=== PATIENT | female | born 1955 | race Caucasian/White ===

== ENCOUNTER 2018-06-04 23:10 | Inpatient (IN) | payer MEDICARE, OTHER ==
[~2018-06-04] VITALS: Ht 165.1 cm; Wt 62.1 kg
[2018-06-04 23:56] LABS: CLARITY,URINE SLIGHTLY CLOUDY (Clear); COLOR,URINE YELLOW (Yellow); GLUCOSE, URINE NEGATIVE (Neg); KETONES,URINE NEGATIVE (Neg); LEUKOCYTE ESTERASE ,URINE MODERATE (Neg); NITRITES, URINE NEGATIVE (Neg); OCCULT BLOOD,URINE SMALL (Neg); PROTEIN,URINE 100 mg/dl (Neg); UROBILINOGEN,URINE 0.2 E.U/dL (0.2-1.0)
[2018-06-04 23:58] LABS: UA COLLECTION TYPE CLN CATCH MIDSTREAM
[2018-06-05 00:02] LABS: MUCUS STRANDS FEW /LPF (Neg); SQUAMOUS EPITHELIAL CELL,UR MODERATE /LPF (FEW)
[2018-06-05 00:03] LABS: BACTERIA,URINE FEW /HPF (Neg); WBC,URINE TNTC /HPF (0-4)
[2018-06-05 00:18] LABS: BASOPHILS # (AUTO) 0.1 X10'3 (0-0.2); BASOPHILS % (AUTO) 0.8 % (0-1); EOSINOPHILS # (AUTO) 0.5 X10'3 (0-0.9); EOSINOPHILS % (AUTO) 7.1 % (0-6); LYMPHOCYTES # (AUTO) 1.6 X10'3 (1.1-4.8); LYMPHOCYTES % (AUTO) 22.4 % (21-51); MEAN CORPUSCULAR HEMOGLOBIN 30.7 PG (27.0-31.0); MEAN CORPUSCULAR HGB CONC 33.1 g/dL (33.0-36.5); MEAN CORPUSCULAR VOLUME 92.5 FL (78-98); MEAN PLATELET VOLUME 8.4 FL (7.4-10.4); MONOCYTES # (AUTO) 0.4 X10'3 (0-0.9); MONOCYTES % (AUTO) 5.6 % (2-12); NEUTROPHILS # (AUTO) 4.6 X10'3 (1.8-7.7); NEUTROPHILS % (AUTO) 64.1 % (42-75); PLATELET COUNT 203 X10'3 (140-440); RED BLOOD COUNT 2.37 X10'6 (4.20-5.60); RED CELL DISTRIBUTION WIDTH 14.5 % (11.5-14.5); WHITE BLOOD COUNT 7.2 X10'3 (4.5-11.0)
[2018-06-05 00:20] LABS: HEMATOCRIT 21.9 % (35.0-45.0); HEMOGLOBIN 7.3 g/dl (12.0-16.0)
[2018-06-05 00:31] LABS: ALANINE AMINOTRANSFERASE 16 U/L (12-78); ALBUMIN 3.9 G/DL (3.4-5.0); ALKALINE PHOSPHATASE 57 IU/L (46-116); ANION GAP 18 (8-16); ASPARTATE AMINO TRANSFERASE 7 U/L (10-37); BILIRUBIN,TOTAL 0.3 MG/DL (0.1-1.0); BLOOD UREA NITROGEN 134 MG/DL (7-18); BUN/CREATININE RATIO 12.8 (6.6-38.0); CHLORIDE 105 MMOL/L (99-107); CREATININE 10.49 MG/DL (0.40-0.90); GLUCOSE 111 MG/DL (70-104); POTASSIUM 4.9 MMOL/L (3.5-5.1); SODIUM 140 MMOL/L (135-145); TOTAL CARBON DIOXIDE 16.9 MMOL/L (24-32); TOTAL PROTEIN 7.8 G/DL (6.4-8.2); eGFR 4 ML/MIN
[2018-06-05] MEDS ORDERED: NO HOME MEDS (00:38)
[2018-06-05 00:41] LABS: MAGNESIUM 3.3 MG/DL (1.5-2.4); PHOSPHORUS 6.1 MG/DL (2.3-4.5)
[2018-06-05] MEDS ORDERED: normal saline 1000ML IV soln IVB ONE (00:45)
[2018-06-05] MEDS ORDERED: cloNIDine 0.1 mg tablet PO ONE (01:00)
[2018-06-05] MEDS ORDERED: labetalol 20mg/4ml (5mg/ml) syringe IV PRN (02:20)
[2018-06-05] MEDS ORDERED: hydrALAZINE 20mg/ml inj. IV PRN (02:20)
[2018-06-05] MEDS: sodium bicarbonate (8.4%) inj. 150 MEQ in dextrose 5%-water 1,000 ML IV SCH ×2 (02:45→14:38)
[2018-06-05] MEDS: CefTRIAXone/D5W-Rocephin 1gm 50 ML IV SCH (03:38)
[2018-06-05] MEDS: ondansetron/PF 4mg/2ml inj IV PRN ×3 (03:38→19:14)
[2018-06-05] MEDS: acetaminophen 325mg tablet PO PRN (05:24)
[2018-06-05] MEDS ORDERED: HYDROcodone/acetaminophen 5mg/325mg tablet PO PRN (05:30)
[2018-06-05] MEDS: HYDROcodone/acetaminophen 5mg/325mg tablet PO PRN ×2 (06:29→19:16)
[2018-06-05 07:26] LABS: MEAN CORPUSCULAR HEMOGLOBIN 30.8 PG (27.0-31.0); MEAN CORPUSCULAR HGB CONC 33.7 g/dL (33.0-36.5); MEAN CORPUSCULAR VOLUME 91.4 FL (78-98); MEAN PLATELET VOLUME 8.3 FL (7.4-10.4); PLATELET COUNT 170 X10'3 (140-440); RED BLOOD COUNT 2.04 X10'6 (4.20-5.60); RED CELL DISTRIBUTION WIDTH 14.3 % (11.5-14.5); WHITE BLOOD COUNT 5.9 X10'3 (4.5-11.0)
[2018-06-05 07:28] LABS: HEMATOCRIT 18.7 % (35.0-45.0); HEMOGLOBIN 6.3 g/dl (12.0-16.0)
--- NOTE | 2018-06-05 07:34 | NUR ---
PAGED DR. RAZO
[2018-06-05 07:38] LABS: ALBUMIN 3.4 G/DL (3.4-5.0); ANION GAP 18 (8-16); BLOOD UREA NITROGEN 126 MG/DL (7-18); BUN/CREATININE RATIO 12.7 (6.6-38.0); CALCIUM 8.4 MG/DL (8.5-10.1); CHLORIDE 106 MMOL/L (99-107); CREATININE 9.94 MG/DL (0.40-0.90); GLUCOSE 154 MG/DL (70-104); PHOSPHORUS 5.7 MG/DL (2.3-4.5); SODIUM 142 MMOL/L (135-145); TOTAL CARBON DIOXIDE 18.4 MMOL/L (24-32); eGFR 4 ML/MIN
--- NOTE | 2018-06-05 08:02 | NUR ---
Second page to Dr. Maher regarding critical H&H
--- NOTE | 2018-06-05 08:31 | NUR ---
Additional page to Dr. Maher
--- NOTE | 2018-06-05 08:35 | NUR ---
Dr. Maher returned call; hung up after a short time while on hold. carton repairer notified, and additional page made to him.
--- NOTE | 2018-06-05 09:27 | NUR ---
Spoke with Dr. Maher regarding patients decreased H&H upon AM draw. Dr. Maher stated to place telephone order for 2 Units PRBCs STAT IV now, orders will be placed per Dr. Maher's request. He would contact senior quality analyst regarding patients need for dialysis and blood transfusion.
--- NOTE | 2018-06-05 10:20 | NUR ---
Spoke to Dr. Maher regarding transfusion. He requests witholding transfusion until he has consulted Nephrology regarding possible dialysis. Will await verbal confirmation for transfusion initiation.
--- NOTE | 2018-06-05 10:20 | NUR ---
Note [email or web address] in EDM - 06/05/18 at 1027 by [email or web address] Spoke to Dr. Maher regarding transfusion. He requests witholding transfusion until he has consulted Nephrology regarding possible dialysis. Will await verbal confirmation of transfuio
--- NOTE | 2018-06-05 10:24 | NUR ---
Pt requestying assistance using the restroom. Pt states that she is too dizzy to use the restroom and is requesting assistance to use a bedpan at this time.
[2018-06-05] MEDS ORDERED: LIDOcaine 1%/PF 5ML 10 MG/ML VIAL ONE (11:17)
[2018-06-05] MEDS ORDERED: heparin 1,000unit/ml 10ml vial 10 ML ONE (11:17)
[2018-06-05] MEDS ORDERED: midazolam 2 mg/2 ml injection ONE (11:17)
[2018-06-05] MEDS ORDERED: fentaNYL/PF 50MCG/1 ML 2ML syringe ONE (11:18)
--- NOTE | 2018-06-05 11:25 | NUR ---
Patient to IR for tunnelled dialysis catheter placement
--- NOTE | 2018-06-05 12:35 | NUR ---
Spoke with Corie at [phone] regarding need for dialysis of patient, Corie stated that she is currently unaware of the patient. I will speak to Dr. Maher and get back to Corie regarding orders.
--- NOTE | 2018-06-05 12:37 | NUR ---
Spoke with Dr. Maher regarding patient having returned to ED after tunneled dialysis catheter placement from angio and no further order for treatment. Dr. Maher stated that he spoke with Dr. Palmer regarding dialysis and that he would place orders. Will contact Dr. Palmer regarding blood transfusion and if MD still wants to wait for dialysis to administer or administer prior to dialysis.
--- NOTE | 2018-06-05 12:48 | NUR ---
Spoke with Dr. Palmer regarding patients need for dialysis and no orders have been currently placed for patient to be dialyzed. Dr. Palmer stated that he would inform the regional guide, Corie, regarding order and need. Also discussed with Dr. Palmer regarding verbal order from Dr. Maher to hold blood products until dialysis who agreed with order. Will place nursing order to hold blood products until performing dialysis.
--- NOTE | 2018-06-05 12:50 | NUR ---
Spoke with Corie, deputy register of deeds, who stated that Dr. Palmer had just called and informed her regarding patients need for dialysis. Corie stated that she would place patient on her schedule.
--- NOTE | 2018-06-05 12:58 | NUR ---
Notified blood bank regarding need to hold off on blood transfusion until start of dialysis.
--- NOTE | 2018-06-05 13:12 | NUR ---
received report from Jessica in the ER. WANT TO HOLD BLOOD UNTIL DIALYSIS NURSE CAN DIALYZE PT. WILL GIVE BLOOD DURING DIALYSIS
[2018-06-05] MEDS ORDERED: normal saline 1000ml 250 ML IV PRN (14:46)
[2018-06-05] MEDS ORDERED: epoetin 20,000 units/ml inj IV ONE (14:50)
[2018-06-05] MEDS ORDERED: heparin 1,000 units/ml 10ml inj HE ONE ×2 (14:50)
--- NOTE | 2018-06-05 16:25 | NUR ---
pre weighed pt for dialsysis.
--- NOTE | 2018-06-05 18:30 | NUR ---
Patient in room PA 345. I have received report from Charu OSBORN and had the opportunity to ask questions and assume patient care. Patient receiving dialysis, provided blood to office technology professor. Will continue to monitor.
[2018-06-05 18:45] VITALS: BP 183/87
[2018-06-05 19:00] VITALS: BP 185/83
[2018-06-05] MEDS ORDERED: HYDROmorphone 2mg/ml vial IV PRN ×2 (19:35)
[2018-06-05] MEDS ORDERED: proCHLORperazine 10 MG/2 ml inj IV ONE (19:45)
--- NOTE | 2018-06-05 19:45 | NUR ---
Patient is having pain and nausea, discussed with Lesley Santiago PHP MYSQL WEB DEVELOPER. Patient is receiving dialysis and blood. Blood pressure elevated. Zofran provided with minimal relief. Patient requested pain medication over nausea medication at this time due to sedation. Received ordered for compazine, dilaudid, and to return call if BP continues to be elevated after dialysis has completed. Will continue to monitor.
[2018-06-05] MEDS: HYDROmorphone 1 mg/ml syringe IV PRN (19:52)
[2018-06-05 20:00] VITALS: BP_SYST 179; BP_SYST 188; BP_DIAS 85; BP_DIAS 96
[2018-06-05 20:30] VITALS: BP 157/79
--- NOTE | 2018-06-05 22:00 | NUR ---
Entered patient's room to provide Vasotec due to BP being 191/90. Blood pressure now 160/80, patient resting comfortably. Will continue to monitor,.
[2018-06-05 22:15] VITALS: BP 138/60
--- NOTE | 2018-06-05 22:30 | NUR ---
Patient woke up due to blood draw needed. Blood pressure elevated to 207/99. Patient states stressor of having blood drawn and not being able to urinate. Educated patient on commonality of decreased urine output post dialysis. Also discussed with patient guided imagery and intentional breathing. Will continue to monitor patient's blood pressure to ensure it returns to normal.
--- NOTE | 2018-06-05 23:12 | NUR ---
Patient resting blood pressure is 147/79. resting eyes closed respirations even. Will continue to monitor.
[2018-06-05 23:13] LABS: HEMATOCRIT 23.7 % (35.0-45.0); MEAN CORPUSCULAR HEMOGLOBIN 29.1 PG (27.0-31.0); MEAN CORPUSCULAR HGB CONC 33.7 g/dL (33.0-36.5); MEAN CORPUSCULAR VOLUME 86.4 FL (78-98); PLATELET COUNT 174 X10'3 (140-440); RED BLOOD COUNT 2.74 X10'6 (4.20-5.60); RED CELL DISTRIBUTION WIDTH 17.6 % (11.5-14.5); WHITE BLOOD COUNT 6.6 X10'3 (4.5-11.0)
[2018-06-06] VITALS: BP_SYST 149; BP_SYST 179; BP_DIAS 77; BP_DIAS 85
[2018-06-06] MEDS: HYDROmorphone 1 mg/ml syringe IV PRN (04:08)
[2018-06-06] MEDS: ondansetron/PF 4mg/2ml inj IV PRN (04:17)
[2018-06-06] MEDS: sodium bicarbonate (8.4%) inj. 150 MEQ in dextrose 5%-water 1,000 ML IV SCH ×2 (04:40→17:14)
[2018-06-06 04:44] LABS: BASOPHILS % (AUTO) 0.1 % (0-1); EOSINOPHILS % (AUTO) 0.8 % (0-6); HEMATOCRIT 22.8 % (35.0-45.0); LYMPHOCYTES # (AUTO) 0.8 X10'3 (1.1-4.8); LYMPHOCYTES % (AUTO) 13.6 % (21-51); MEAN CORPUSCULAR HEMOGLOBIN 30.1 PG (27.0-31.0); MONOCYTES # (AUTO) 0.3 X10'3 (0-0.9); MONOCYTES % (AUTO) 5.8 % (2-12); NEUTROPHILS # (AUTO) 4.7 X10'3 (1.8-7.7); NEUTROPHILS % (AUTO) 79.7 % (42-75); PLATELET COUNT 161 X10'3 (140-440); RED BLOOD COUNT 2.65 X10'6 (4.20-5.60); RED CELL DISTRIBUTION WIDTH 17.9 % (11.5-14.5); WHITE BLOOD COUNT 5.8 X10'3 (4.5-11.0)
[2018-06-06 04:50] LABS: ALBUMIN 3.3 G/DL (3.4-5.0); ANION GAP 10 (8-16); BLOOD UREA NITROGEN 52 MG/DL (7-18); BUN/CREATININE RATIO 9.6 (6.6-38.0); CALCIUM 8.4 MG/DL (8.5-10.1); CHLORIDE 101 MMOL/L (99-107); CREATININE 5.43 MG/DL (0.40-0.90); GLUCOSE 119 MG/DL (70-104); MAGNESIUM 2.2 MG/DL (1.5-2.4); PHOSPHORUS 6.4 MG/DL (2.3-4.5); POTASSIUM 4.1 MMOL/L (3.5-5.1); SODIUM 138 MMOL/L (135-145); TOTAL CARBON DIOXIDE 26.6 MMOL/L (24-32); eGFR 8 ML/MIN
--- NOTE | 2018-06-06 06:39 | NUR ---
Problems reprioritized. Patient report given, questions answered & plan of care reviewed with Lea RN. Patient resting eyes closed respirations even.
[2018-06-06 07:00] VITALS: BP 205/94
--- NOTE | 2018-06-06 07:00 | NUR ---
Patient in room PA 345. I have received report from Aditi and had the opportunity to ask questions and assume patient care. Addendum: 06/06/18 at 1127 by Lea Beal RN Amended: Links added.
[2018-06-06] MEDS: CefTRIAXone/D5W-Rocephin 1gm 50 ML IV SCH (07:36)
[2018-06-06] MEDS: enalaprilat dihydrate 2.5mg/2ml vial IV PRN (07:36)
[2018-06-06 08:00] VITALS: BP 190/84
[2018-06-06 12:00] VITALS: BP 174/79
[2018-06-06 12:32] VITALS: BP 162/94
--- NOTE | 2018-06-06 14:52 | NUR ---
Malnutrition consult: Pt admit w/ hx renal failure but not requiring HD and not feeling well for past 1.5 years per EMR. Pt seen by RD and reports 20# wt loss past 1.5 years w/ 5# of that being past month r/t low appetite, feeling full quickly, and altered taste. 15% UBW loss past 18 months and 4% UBW loss past month moderate wt loss. Pt has no visible muscle/fat wasting, no edema, no significant weakness, and PO 0-25% mainly liquids since not feeling well per pt. Phos binder to be held since new HD pt and making urine per MD; Ok to have some liberalization of renal diet. Pt preferences taken by RD and d/w dietary: Dislikes eggs, lactose-intolerant to receive almond milk and cereal at breakfasts, and wants herbal tea instead of coffee since dislikes. Pt agrees to [facility] for additional protein/kcal needs w/ low PO; RD provided verbal high protein ed to pt given new HD and low PO. At this time pt does not qualify for malnutrition; will monitor for PO hx this admit for additional criteria. Addendum: 06/06/18 at [address] Amended: Links added. Addendum: 06/06/18 at [address] Malnutrition consult: Pt admit w/ hx renal failure but not requiring HD and not feeling well for past 1.5 years per EMR. Pt seen by ROSINA and reports 20# wt loss past 1.5 years w/ 5# of that being past month r/t low appetite, feeling full quickly, and altered taste. 15% UBW loss past 18 months and 4% UBW loss past month moderate wt loss. Pt has no visible muscle/fat wasting, no edema, no significant weakness, and PO 0-25% mainly liquids since not feeling well per pt. Phos binder to be held since new HD pt and making urine per MD; Ok to have some liberalization of renal diet. Pt preferences taken by ROSINA and d/w dietary: Dislikes eggs, lactose-intolerant to receive almond milk and cereal at breakfasts, and wants herbal tea instead of coffee since dislikes. Pt agrees to [facility] for additional protein/kcal needs w/ low PO; MD notified. ROSINA provided verbal high protein ed to pt given new HD and low PO. At this time pt does not qualify for malnutrition; will monitor for PO hx this admit for additional criteria.
[2018-06-06] MEDS: NUT.TX.IMP.RENAL FXN,LAC-REDUC (Nepro) 237 ML VANILLA PO SCH (18:15)
--- NOTE | 2018-06-06 18:26 | NUR ---
Problems reprioritized. Patient report given, questions answered & plan of care reviewed with Addendum: 06/06/18 at 1826 by Lea Beal RN Amended: Links added.
--- NOTE | 2018-06-06 18:30 | NUR ---
Patient in room PA 345. I have received report from Lea OSBORN and had the opportunity to ask questions and assume patient care. Patient in great spirits and states she is feeling much better. Will continue to monitor.
[2018-06-06 19:00] VITALS: BP 137/65
[2018-06-06] MEDS: lactobacillus rhamnosus 10,000 MMU CELLS/CAPSULE PO SCH (19:23)
[2018-06-06] MEDS ORDERED: Melatonin 3mg tablet PO PRN (23:25)
[2018-06-07] VITALS: BP 152/71
[2018-06-07 05:53] LABS: BASOPHILS % (AUTO) 0.2 % (0-1); EOSINOPHILS # (AUTO) 0.2 X10'3 (0-0.9); EOSINOPHILS % (AUTO) 2.5 % (0-6); HEMATOCRIT 22.8 % (35.0-45.0); HEMOGLOBIN 7.5 g/dl (12.0-16.0); LYMPHOCYTES # (AUTO) 1.3 X10'3 (1.1-4.8); LYMPHOCYTES % (AUTO) 18.6 % (21-51); MEAN CORPUSCULAR HEMOGLOBIN 29.1 PG (27.0-31.0); MEAN CORPUSCULAR HGB CONC 33.1 g/dL (33.0-36.5); MEAN CORPUSCULAR VOLUME 87.7 FL (78-98); MEAN PLATELET VOLUME 8.5 FL (7.4-10.4); MONOCYTES # (AUTO) 0.5 X10'3 (0-0.9); NEUTROPHILS # (AUTO) 4.8 X10'3 (1.8-7.7); NEUTROPHILS % (AUTO) 70.7 % (42-75); PLATELET COUNT 150 X10'3 (140-440); RED CELL DISTRIBUTION WIDTH 17.8 % (11.5-14.5); WHITE BLOOD COUNT 6.8 X10'3 (4.5-11.0)
[2018-06-07 05:56] LABS: ALBUMIN 2.9 G/DL (3.4-5.0); ANION GAP 8 (8-16); BLOOD UREA NITROGEN 66 MG/DL (7-18); BUN/CREATININE RATIO 9.7 (6.6-38.0); CALCIUM 8.1 MG/DL (8.5-10.1); CHLORIDE 99 MMOL/L (99-107); CREATININE 6.79 MG/DL (0.40-0.90); GLUCOSE 102 MG/DL (70-104); MAGNESIUM 2.3 MG/DL (1.5-2.4); PHOSPHORUS 6.5 MG/DL (2.3-4.5); POTASSIUM 4.1 MMOL/L (3.5-5.1); SODIUM 141 MMOL/L (135-145); TOTAL CARBON DIOXIDE 34.5 MMOL/L (24-32); eGFR 6 ML/MIN
--- NOTE | 2018-06-07 06:44 | NUR ---
Problems reprioritized. Patient report given, questions answered & plan of care reviewed with Ena OSBORN. Patient resting eyes closed respirations even.
[2018-06-07 07:00] VITALS: BP 142/63
[2018-06-07] MEDS ORDERED: heparin 1,000 units/ml 10ml inj HE ONE ×2 (08:00)
[2018-06-07] MEDS ORDERED: epoetin 20,000 units/ml inj IV ONE (08:00)
[2018-06-07] MEDS ORDERED: normal saline 1000ml 250 ML IV PRN (08:00)
[2018-06-07] MEDS ORDERED: normal saline 1000ml 100 ML IV PRN (08:00)
[2018-06-07] MEDS: CefTRIAXone/D5W-Rocephin 1gm 50 ML IV SCH (08:48)
[2018-06-07] MEDS: lactobacillus rhamnosus 10,000 MMU CELLS/CAPSULE PO SCH ×2 (08:49→21:03)
[2018-06-07] MEDS: LORazepam 0.5 MG tablet PO PRN (11:13)
[2018-06-07 12:00] VITALS: BP 158/67
[2018-06-07] MEDS: sodium bicarbonate (8.4%) inj. 150 MEQ in dextrose 5%-water 1,000 ML IV SCH (12:44)
[2018-06-07] MEDS: NUT.TX.IMP.RENAL FXN,LAC-REDUC (Nepro) 237 ML VANILLA PO SCH (17:00)
--- NOTE | 2018-06-07 18:20 | NUR ---
Patient in room PA 345. I have received report from Ena OSBORN and mae student Lopez and had the opportunity to ask questions and assume patient care.
--- NOTE | 2018-06-07 19:12 | NUR ---
WHEY DEPARTMENT OPERATOR reported 3 x loose stools back to back and patient very uncomfortable from excoriation. Order obtained for rectal tube to be placed. Addendum: 06/07/18 at 1915 by Pilar Murrell RN Incorrect- wrong patient.
[2018-06-07 20:00] VITALS: BP 144/84
[2018-06-07] MEDS: HYDROcodone/acetaminophen 5mg/325mg tablet PO PRN (21:04)
[2018-06-08] VITALS: BP 153/63
[2018-06-08] MEDS: HYDROcodone/acetaminophen 5mg/325mg tablet PO PRN (04:32)
[2018-06-08 05:38] LABS: ANION GAP 6 (8-16); BLOOD UREA NITROGEN 29 MG/DL (7-18); BUN/CREATININE RATIO 7.3 (6.6-38.0); CALCIUM 8.2 MG/DL (8.5-10.1); CHLORIDE 99 MMOL/L (99-107); CREATININE 3.95 MG/DL (0.40-0.90); GLUCOSE 94 MG/DL (70-104); MAGNESIUM 2.2 MG/DL (1.5-2.4); PHOSPHORUS 4.3 MG/DL (2.3-4.5); POTASSIUM 4.2 MMOL/L (3.5-5.1); SODIUM 137 MMOL/L (135-145); eGFR 11 ML/MIN
[2018-06-08 05:40] LABS: BASOPHILS % (AUTO) 0.5 % (0-1); EOSINOPHILS # (AUTO) 0.3 X10'3 (0-0.9); EOSINOPHILS % (AUTO) 4.8 % (0-6); HEMATOCRIT 23.3 % (35.0-45.0); HEMOGLOBIN 7.8 g/dl (12.0-16.0); LYMPHOCYTES # (AUTO) 1.5 X10'3 (1.1-4.8); LYMPHOCYTES % (AUTO) 25.4 % (21-51); MEAN CORPUSCULAR HEMOGLOBIN 29.7 PG (27.0-31.0); MEAN CORPUSCULAR HGB CONC 33.7 g/dL (33.0-36.5); MEAN CORPUSCULAR VOLUME 87.9 FL (78-98); MEAN PLATELET VOLUME 8.8 FL (7.4-10.4); MONOCYTES # (AUTO) 0.6 X10'3 (0-0.9); MONOCYTES % (AUTO) 9.9 % (2-12); NEUTROPHILS # (AUTO) 3.5 X10'3 (1.8-7.7); NEUTROPHILS % (AUTO) 59.4 % (42-75); PLATELET COUNT 156 X10'3 (140-440); RED BLOOD COUNT 2.65 X10'6 (4.20-5.60); RED CELL DISTRIBUTION WIDTH 17.6 % (11.5-14.5)
--- NOTE | 2018-06-08 06:12 | NUR ---
Problems reprioritized. Patient report given, questions answered & plan of care reviewed with Latonya RN.
[2018-06-08 06:30] VITALS: BP 129/67
--- NOTE | 2018-06-08 06:30 | NUR ---
Patient in room PA 345. I have received report from IRENA Quezada and had the opportunity to ask questions and assume patient care.
[2018-06-08] MEDS: CefTRIAXone/D5W-Rocephin 1gm 50 ML IV SCH (09:33)
[2018-06-08] MEDS: lactobacillus rhamnosus 10,000 MMU CELLS/CAPSULE PO SCH ×2 (09:33→21:14)
[2018-06-08 12:00] VITALS: BP 130/63
[2018-06-08] MEDS: NUT.TX.IMP.RENAL FXN,LAC-REDUC (Nepro) 237 ML VANILLA PO SCH (18:00)
--- NOTE | 2018-06-08 18:10 | NUR ---
Problems reprioritized. Patient report given, questions answered & plan of care reviewed with IRENA Quezada.
--- NOTE | 2018-06-08 18:18 | NUR ---
Patient in room PA 345. I have received report from Latonya OSBORN and had the opportunity to ask questions and assume patient care.
[2018-06-08 19:10] LABS: HBSAG SCREEN Negative (Negative); HEP A AB, IGM Negative (Negative); HEP B CORE AB, IGM Negative (Negative); HEP B CORE AB, TOT Negative (Negative); HEPATITIS C ANTIBODY <0.1 s/co ratio (0.0-0.9)
[2018-06-08] MEDS: magnesium hydroxide 30ml (MOM) UD suspension PO PRN (21:14)
[2018-06-09] VITALS: BP 127/77
[2018-06-09 05:48] LABS: ALBUMIN 2.8 G/DL (3.4-5.0); ANION GAP 10 (8-16); BASOPHILS % (AUTO) 0.6 % (0-1); BLOOD UREA NITROGEN 48 MG/DL (7-18); BUN/CREATININE RATIO 8.5 (6.6-38.0); CALCIUM 8.2 MG/DL (8.5-10.1); CHLORIDE 96 MMOL/L (99-107); CREATININE 5.65 MG/DL (0.40-0.90); EOSINOPHILS # (AUTO) 0.4 X10'3 (0-0.9); EOSINOPHILS % (AUTO) 6.9 % (0-6); GLUCOSE 105 MG/DL (70-104); HEMATOCRIT 22.3 % (35.0-45.0); HEMOGLOBIN 7.6 g/dl (12.0-16.0); LYMPHOCYTES # (AUTO) 1.4 X10'3 (1.1-4.8); LYMPHOCYTES % (AUTO) 22.1 % (21-51); MAGNESIUM 2.5 MG/DL (1.5-2.4); MEAN CORPUSCULAR HGB CONC 33.9 g/dL (33.0-36.5); MEAN CORPUSCULAR VOLUME 88.5 FL (78-98); MEAN PLATELET VOLUME 9.1 FL (7.4-10.4); MONOCYTES # (AUTO) 0.6 X10'3 (0-0.9); MONOCYTES % (AUTO) 10.1 % (2-12); NEUTROPHILS # (AUTO) 3.8 X10'3 (1.8-7.7); NEUTROPHILS % (AUTO) 60.3 % (42-75); PLATELET COUNT 145 X10'3 (140-440); POTASSIUM 4.3 MMOL/L (3.5-5.1); RED BLOOD COUNT 2.52 X10'6 (4.20-5.60); RED CELL DISTRIBUTION WIDTH 16.5 % (11.5-14.5); SODIUM 134 MMOL/L (135-145); TOTAL CARBON DIOXIDE 27.7 MMOL/L (24-32); WHITE BLOOD COUNT 6.3 X10'3 (4.5-11.0); eGFR 8 ML/MIN
--- NOTE | 2018-06-09 06:10 | NUR ---
Patient in room PA 345. I have received report from IRENA Quezada and had the opportunity to ask questions and assume patient care.
[2018-06-09 06:30] VITALS: BP 136/66
--- NOTE | 2018-06-09 06:41 | NUR ---
Problems reprioritized. Patient report given, questions answered & plan of care reviewed with Latonya RN.
[2018-06-09] MEDS: lactobacillus rhamnosus 10,000 MMU CELLS/CAPSULE PO SCH ×2 (08:26→20:09)
[2018-06-09] MEDS: CefTRIAXone/D5W-Rocephin 1gm 50 ML IV SCH (08:26)
[2018-06-09 11:30] VITALS: BP 136/71
[2018-06-09] MEDS: LORazepam 0.5 MG tablet PO PRN (13:10)
[2018-06-09] MEDS: HYDROcodone/acetaminophen 5mg/325mg tablet PO PRN ×2 (13:21→21:02)
[2018-06-09] MEDS: ondansetron/PF 4mg/2ml inj IV PRN ×2 (13:21→21:02)
[2018-06-09 13:45] VITALS: BP_SYST 167; BP_SYST 168; BP_SYST 177; BP_DIAS 72; BP_DIAS 75; BP_DIAS 78
--- NOTE | 2018-06-09 13:54 | NUR ---
MDs aware of pt c/o abdominal pain, mild dizziness w/standing or standing for a minute or 2 & nausea. UA w/C&S ordered by Dr Maher & orthostatic VS check x1 ordered by Dr Hargrove.
[2018-06-09 14:24] LABS: TOTAL PROTEIN,URINE RANDOM 123.9 MG/DL
[2018-06-09 18:00] VITALS: BP 176/68
[2018-06-09 18:18] LABS: CLARITY,URINE CLEAR (Clear); COLOR,URINE STRAW (Yellow); GLUCOSE, URINE NEGATIVE (Neg); KETONES,URINE NEGATIVE (Neg); LEUKOCYTE ESTERASE ,URINE SMALL (Neg); NITRITES, URINE NEGATIVE (Neg); OCCULT BLOOD,URINE TRACE-INTACT (Neg); PROTEIN,URINE 100 mg/dl (Neg); UA COLLECTION TYPE NON-SPECIFIED; UROBILINOGEN,URINE 0.2 E.U/dL (0.2-1.0)
[2018-06-09] MEDS: NUT.TX.IMP.RENAL FXN,LAC-REDUC (Nepro) 237 ML VANILLA PO SCH (18:21)
--- NOTE | 2018-06-09 18:21 | NUR ---
Received report from IRENA Hanks. Patient is awake and alert on room air, in no apparent distress. Call light and items of frequent use within reach. Visitor at bedside. Will continue to monitor.
[2018-06-09 18:24] LABS: BACTERIA,URINE FEW /HPF (Neg); MUCUS STRANDS NONE SEEN /LPF (Neg); RBC,URINE 0-2 /HPF (0-2); SQUAMOUS EPITHELIAL CELL,UR MODERATE /LPF (FEW)
--- NOTE | 2018-06-09 18:55 | NUR ---
Patient has temperature of 103.1. Paged MD Nika. Awaiting call back.
[2018-06-09] MEDS ORDERED: CefTRIAXone/D5W-Rocephin 1gm 50 ML IV ONE (20:00)
[2018-06-09] MEDS: acetaminophen 325mg tablet PO PRN (21:02)
[2018-06-10] VITALS: BP 124/52
[2018-06-10] MEDS: LORazepam 0.5 MG tablet PO PRN (00:29)
[2018-06-10] MEDS: proCHLORperazine 10 MG/2 ml inj IV PRN (00:31)
[2018-06-10 05:31] LABS: BASOPHILS % (AUTO) 0 % (0-1); EOSINOPHILS # (AUTO) 0.1 X10'3 (0-0.9); HEMATOCRIT 25.6 % (35.0-45.0); HEMOGLOBIN 8.3 g/dl (12.0-16.0); LYMPHOCYTES # (AUTO) 0.3 X10'3 (1.1-4.8); LYMPHOCYTES % (AUTO) 2.6 % (21-51); MEAN CORPUSCULAR HGB CONC 32.3 g/dL (33.0-36.5); MEAN CORPUSCULAR VOLUME 89.8 FL (78-98); MEAN PLATELET VOLUME 9.3 FL (7.4-10.4); MONOCYTES # (AUTO) 0.1 X10'3 (0-0.9); MONOCYTES % (AUTO) 1.1 % (2-12); NEUTROPHILS # (AUTO) 10.7 X10'3 (1.8-7.7); NEUTROPHILS % (AUTO) 95.3 % (42-75); PLATELET COUNT 153 X10'3 (140-440); RED BLOOD COUNT 2.85 X10'6 (4.20-5.60); RED CELL DISTRIBUTION WIDTH 16.2 % (11.5-14.5); WHITE BLOOD COUNT 11.3 X10'3 (4.5-11.0)
[2018-06-10 05:48] LABS: ALBUMIN 2.9 G/DL (3.4-5.0); ANION GAP 11 (8-16); BLOOD UREA NITROGEN 63 MG/DL (7-18); BUN/CREATININE RATIO 8.9 (6.6-38.0); CALCIUM 8.6 MG/DL (8.5-10.1); CHLORIDE 94 MMOL/L (99-107); CREATININE 7.07 MG/DL (0.40-0.90); GLUCOSE 112 MG/DL (70-104); MAGNESIUM 2.4 MG/DL (1.5-2.4); PHOSPHORUS 4.3 MG/DL (2.3-4.5); POTASSIUM 5.4 MMOL/L (3.5-5.1); SODIUM 131 MMOL/L (135-145); TOTAL CARBON DIOXIDE 26.3 MMOL/L (24-32); eGFR 6 ML/MIN
[2018-06-10 06:00] VITALS: BP 152/68
--- NOTE | 2018-06-10 06:00 | NUR ---
Patient in room PA 345. I have received report from IRENA Saab and had the opportunity to ask questions and assume patient care.
--- NOTE | 2018-06-10 06:06 | NUR ---
Problems reprioritized. Patient report given, questions answered & plan of care reviewed with IRENA Hanks.
--- NOTE | 2018-06-10 06:34 | NUR ---
Patient in room PA 345. I have received report from Katiana OSBORN and had the opportunity to ask questions and assume patient care.
[2018-06-10] MEDS: lactobacillus rhamnosus 10,000 MMU CELLS/CAPSULE PO SCH ×2 (07:10→19:10)
[2018-06-10] MEDS: acetaminophen 325mg tablet PO PRN ×3 (07:10→20:29)
[2018-06-10] MEDS: CefTRIAXone 2gm/D5W 50ml 50 ML IV SCH (07:11)
[2018-06-10] MEDS: HYDROcodone/acetaminophen 5mg/325mg tablet PO PRN ×2 (07:20→15:46)
[2018-06-10] MEDS: NUT.TX.IMP.RENAL FXN,LAC-REDUC (Nepro) 237 ML VANILLA PO SCH (08:46)
[2018-06-10] MEDS ORDERED: heparin 1,000unit/ml 10ml vial 10 ML IV ONE (08:49)
[2018-06-10] MEDS ORDERED: normal saline 1000ml 250 ML IV PRN (08:49)
[2018-06-10] MEDS ORDERED: epoetin 20,000 units/ml inj IV ONE (08:50)
[2018-06-10] MEDS ORDERED: heparin 1,000 units/ml 10ml inj HE ONE ×2 (08:55)
--- NOTE | 2018-06-10 10:27 | NUR ---
Student documentation: I have reviewed and agree with all interventions, assessments performed and documented by Feli, nursing executive.
--- NOTE | 2018-06-10 10:27 | NUR ---
Student Medication Administration: For this medication-pass time frame, all medication were reviewed, dispensed, administered and documented per hospital policy by Feli nursing admin.
[2018-06-10 10:52] VITALS: BP 110/57
--- NOTE | 2018-06-10 12:09 | NUR ---
Problems reprioritized. Patient report given, questions answered & plan of care reviewed with Latonya RN.
[2018-06-10] MEDS: HYDROmorphone 1 mg/ml syringe IV PRN ×2 (12:28→19:11)
--- NOTE | 2018-06-10 13:55 | NUR ---
Initial: P admit w/ MITZI hx polycystic kidney disease now started on HD. PO 50-75% renal/lactose-free diet w/ 100% Nepro at dinners meeting needs. LBM 06/09. No nutrition concerns at this time. Rec: 1. continue renal/lactose free diet per MD 2. Nepro WS 3. wt per rx Addendum: 06/10/18 at [address] Amended: Links added.
[2018-06-10 13:59] VITALS: BP 193/78
[2018-06-10] MEDS ORDERED: diatr meglu/diatrizoate 30ml oral sol.-(3 dose) bottle ONE (14:52)
[2018-06-10 15:00] VITALS: BP 124/63
[2018-06-10] MEDS ORDERED: vancomycin/NS 1 GM ADD-VANTAGE 250 ML IV ONE (15:30)
--- NOTE | 2018-06-10 18:11 | NUR ---
Received report from IRENA Hanks. Patient is awake and alert on room air, in no apparent distress. Call light and items of frequent use within reach. Will continue to monitor.
--- NOTE | 2018-06-10 18:11 | NUR ---
Problems reprioritized. Patient report given, questions answered & plan of care reviewed with IRENA Saab.
[2018-06-10 20:00] VITALS: BP 151/64
[2018-06-11] VITALS: BP 142/63
[2018-06-11] MEDS: ondansetron/PF 4mg/2ml inj IV PRN ×3 (00:34→22:15)
[2018-06-11] MEDS: LORazepam 0.5 MG tablet PO PRN (00:34)
[2018-06-11] MEDS: HYDROcodone/acetaminophen 5mg/325mg tablet PO PRN ×2 (00:35→06:54)
[2018-06-11] MEDS: lactobacillus rhamnosus 10,000 MMU CELLS/CAPSULE PO SCH ×2 (06:53→19:29)
[2018-06-11] MEDS: CefTRIAXone 2gm/D5W 50ml 50 ML IV SCH (06:56)
[2018-06-11 08:00] VITALS: BP 111/66
[2018-06-11] MEDS: NUT.TX.IMP.RENAL FXN,LAC-REDUC (Nepro) 237 ML VANILLA PO SCH ×3 (08:00→09:33)
[2018-06-11] MEDS: HYDROmorphone 1 mg/ml syringe IV PRN ×3 (09:46→22:15)
[2018-06-11] MEDS: proCHLORperazine 10 MG/2 ml inj IV PRN ×2 (09:48→17:00)
[2018-06-11] MEDS: levoFLOXACIN-Levaquin 250mg/D5 50 ML IV SCH (11:17)
[2018-06-11] MEDS: lactulose 20gm/30ml cup PO PRN (11:23)
[2018-06-11 12:05] VITALS: BP 126/56
--- NOTE | 2018-06-11 13:00 | NUR ---
Radiologist called regarding CT results. Bowel perforation noted in CT, likely in sigmoid colon. I paged Dr ventura with these results immediatly
[2018-06-11] MEDS: metroNIDAZOLE-Flagyl 500mg/NS 100 ML IV SCH ×2 (16:54→23:57)
--- NOTE | 2018-06-11 18:30 | NUR ---
Received report from IRENA Sutherland. Patient is resting with eyes closed on room air, 16 even and unlabored respirations. Call light and items of frequent use within reach. Will continue to monitor.
--- NOTE | 2018-06-11 18:40 | NUR ---
Problems reprioritized. Patient report given, questions answered & plan of care reviewed with DONNA OSBORN.
[2018-06-11 19:00] VITALS: BP_SYST 119; BP_SYST 138; BP_DIAS 54; BP_DIAS 60
[2018-06-12] VITALS (9 sets, daily range): BP systolic 119–155; BP diastolic 54–79
--- NOTE | 2018-06-12 06:08 | NUR ---
Problems reprioritized. Patient report given, questions answered & plan of care reviewed with IRENA Hsu.
--- NOTE | 2018-06-12 06:15 | NUR ---
Patient in room PA 345. I have received report from IRENA Saab and had the opportunity to ask questions and assume patient care.
[2018-06-12] MEDS: lactobacillus rhamnosus 10,000 MMU CELLS/CAPSULE PO SCH ×2 (07:13→21:29)
[2018-06-12] MEDS: CefTRIAXone 2gm/D5W 50ml 50 ML IV SCH (07:14)
[2018-06-12] MEDS ORDERED: epoetin 20,000 units/ml inj IV ONE (08:00)
[2018-06-12] MEDS: NUT.TX.IMP.RENAL FXN,LAC-REDUC (Nepro) 237 ML VANILLA PO SCH (08:00)
[2018-06-12] MEDS ORDERED: heparin 1,000 units/ml 10ml inj HE ONE ×2 (08:00)
[2018-06-12] MEDS ORDERED: heparin 1,000unit/ml 10ml vial 10 ML IV ONE (08:00)
[2018-06-12] MEDS ORDERED: normal saline 1000ml 250 ML IV PRN (08:00)
[2018-06-12] MEDS: levoFLOXACIN-Levaquin 250mg/D5 50 ML IV SCH (08:09)
[2018-06-12] MEDS: metroNIDAZOLE-Flagyl 500mg/NS 100 ML IV SCH ×2 (09:07→17:06)
[2018-06-12 12:43] LABS: BASOPHILS % (AUTO) 0.3 % (0-1); EOSINOPHILS # (AUTO) 0.1 X10'3 (0-0.9); EOSINOPHILS % (AUTO) 0.9 % (0-6); LYMPHOCYTES # (AUTO) 0.4 X10'3 (1.1-4.8); LYMPHOCYTES % (AUTO) 5.7 % (21-51); MEAN CORPUSCULAR HEMOGLOBIN 30.1 PG (27.0-31.0); MEAN CORPUSCULAR HGB CONC 34.1 g/dL (33.0-36.5); MEAN CORPUSCULAR VOLUME 88.2 FL (78-98); MEAN PLATELET VOLUME 9.4 FL (7.4-10.4); MONOCYTES # (AUTO) 0.5 X10'3 (0-0.9); MONOCYTES % (AUTO) 7.6 % (2-12); NEUTROPHILS # (AUTO) 5.3 X10'3 (1.8-7.7); NEUTROPHILS % (AUTO) 85.5 % (42-75); PLATELET COUNT 103 X10'3 (140-440); RED BLOOD COUNT 2.21 X10'6 (4.20-5.60); RED CELL DISTRIBUTION WIDTH 17.2 % (11.5-14.5); WHITE BLOOD COUNT 6.2 X10'3 (4.5-11.0)
[2018-06-12] MEDS: LORazepam 0.5 MG tablet PO PRN (12:47)
[2018-06-12 12:51] LABS: ALANINE AMINOTRANSFERASE 22 U/L (12-78); ALBUMIN 2.2 G/DL (3.4-5.0); ALBUMIN/GLOBULIN RATIO 0.6 (1.1-1.5); ALKALINE PHOSPHATASE 73 IU/L (46-116); ANION GAP 9 (8-16); ASPARTATE AMINO TRANSFERASE 22 U/L (10-37); BILIRUBIN,TOTAL 0.2 MG/DL (0.1-1.0); BLOOD UREA NITROGEN 51 MG/DL (7-18); BUN/CREATININE RATIO 7.4 (6.6-38.0); CALCIUM 8.5 MG/DL (8.5-10.1); CHLORIDE 94 MMOL/L (99-107); CREATININE 6.92 MG/DL (0.40-0.90); GLUCOSE 137 MG/DL (70-104); POTASSIUM 3.9 MMOL/L (3.5-5.1); SODIUM 130 MMOL/L (135-145); TOTAL CARBON DIOXIDE 26.8 MMOL/L (24-32); TOTAL PROTEIN 5.9 G/DL (6.4-8.2); eGFR 6 ML/MIN
[2018-06-12 12:53] LABS: HEMOGLOBIN 6.6 g/dl (12.0-16.0)
[2018-06-12 12:54] LABS: HEMATOCRIT 19.5 % (35.0-45.0)
[2018-06-12 13:37] LABS: BASOPHILS % (AUTO) 0.2 % (0-1); EOSINOPHILS # (AUTO) 0.1 X10'3 (0-0.9); EOSINOPHILS % (AUTO) 1.1 % (0-6); LYMPHOCYTES # (AUTO) 0.3 X10'3 (1.1-4.8); LYMPHOCYTES % (AUTO) 5.7 % (21-51); MEAN CORPUSCULAR HEMOGLOBIN 29.6 PG (27.0-31.0); MEAN CORPUSCULAR HGB CONC 33.5 g/dL (33.0-36.5); MEAN CORPUSCULAR VOLUME 88.3 FL (78-98); MEAN PLATELET VOLUME 8.9 FL (7.4-10.4); MONOCYTES # (AUTO) 0.4 X10'3 (0-0.9); MONOCYTES % (AUTO) 7.4 % (2-12); NEUTROPHILS # (AUTO) 5.1 X10'3 (1.8-7.7); NEUTROPHILS % (AUTO) 85.6 % (42-75); PLATELET COUNT 100 X10'3 (140-440); RED BLOOD COUNT 2.22 X10'6 (4.20-5.60); RED CELL DISTRIBUTION WIDTH 16.9 % (11.5-14.5)
[2018-06-12 13:40] LABS: HEMOGLOBIN 6.6 g/dl (12.0-16.0)
[2018-06-12 13:41] LABS: HEMATOCRIT 19.6 % (35.0-45.0)
[2018-06-12 13:50] LABS: ALANINE AMINOTRANSFERASE 17 U/L (12-78); ALBUMIN 2.2 G/DL (3.4-5.0); ALBUMIN/GLOBULIN RATIO 0.6 (1.1-1.5); ALKALINE PHOSPHATASE 75 IU/L (46-116); ANION GAP 9 (8-16); ASPARTATE AMINO TRANSFERASE 18 U/L (10-37); BILIRUBIN,TOTAL 0.2 MG/DL (0.1-1.0); BLOOD UREA NITROGEN 56 MG/DL (7-18); BUN/CREATININE RATIO 8.1 (6.6-38.0); CALCIUM 8.6 MG/DL (8.5-10.1); CHLORIDE 94 MMOL/L (99-107); CREATININE 6.91 MG/DL (0.40-0.90); GLUCOSE 170 MG/DL (70-104); POTASSIUM 3.9 MMOL/L (3.5-5.1); SODIUM 130 MMOL/L (135-145); TOTAL CARBON DIOXIDE 26.8 MMOL/L (24-32); eGFR 6 ML/MIN
[2018-06-12] MEDS ORDERED: magnesium hydroxide 30ml (MOM) UD suspension PO ONE (15:05)
--- NOTE | 2018-06-12 16:39 | NUR ---
Dr. Engel notified of pt's pre-transfusion temp is 100.0. stated pt to have recheck of temperature 2hrs post dialysis then if afebrile begin transfusion as ordered. Primary RN, Aracelis, notified.
--- NOTE | 2018-06-12 17:04 | NUR ---
Dr. Hargrove rounded and was notified of delay of transfusion d/t fever of 100. Dr. Hargrove stated d/t K+ load from transfusion the blood must be given w/ HD. stated pt may have tylenol prn if ordered. Only 1 unit of blood to be given. IRENA Ritchie (covering for primary RN, Efrain) notified.
[2018-06-12] MEDS: acetaminophen 325mg tablet PO PRN (17:24)
[2018-06-12] MEDS ORDERED: lactulose 20gm/30ml cup PO PRN (19:45)
--- NOTE | 2018-06-12 20:12 | NUR ---
Problems reprioritized. Patient report given, questions answered & plan of care reviewed with IRENA Joya.
--- NOTE | 2018-06-12 20:13 | NUR ---
Patient in room PA 345. I have received report from Aracelis OSBORN and had the opportunity to ask questions and assume patient care. Pt currently receiving HD with at bedside. Pt has no signs of distress, will continue to monitor.
[2018-06-12 23:39] LABS: BASOPHILS % (AUTO) 0.1 % (0-1); EOSINOPHILS # (AUTO) 0.1 X10'3 (0-0.9); EOSINOPHILS % (AUTO) 1.6 % (0-6); HEMATOCRIT 25.3 % (35.0-45.0); HEMOGLOBIN 8.6 g/dl (12.0-16.0); LYMPHOCYTES # (AUTO) 0.3 X10'3 (1.1-4.8); LYMPHOCYTES % (AUTO) 5.8 % (21-51); MEAN CORPUSCULAR HEMOGLOBIN 29.3 PG (27.0-31.0); MEAN CORPUSCULAR HGB CONC 33.8 g/dL (33.0-36.5); MEAN CORPUSCULAR VOLUME 86.4 FL (78-98); MEAN PLATELET VOLUME 8.9 FL (7.4-10.4); MONOCYTES # (AUTO) 0.4 X10'3 (0-0.9); MONOCYTES % (AUTO) 8.3 % (2-12); NEUTROPHILS # (AUTO) 4.2 X10'3 (1.8-7.7); NEUTROPHILS % (AUTO) 84.2 % (42-75); PLATELET COUNT 108 X10'3 (140-440); RED BLOOD COUNT 2.92 X10'6 (4.20-5.60); RED CELL DISTRIBUTION WIDTH 16.5 % (11.5-14.5)
[2018-06-12 23:50] LABS: ALANINE AMINOTRANSFERASE 24 U/L (12-78); ALBUMIN 2.3 G/DL (3.4-5.0); ALBUMIN/GLOBULIN RATIO 0.6 (1.1-1.5); ALKALINE PHOSPHATASE 79 IU/L (46-116); ANION GAP 7 (8-16); ASPARTATE AMINO TRANSFERASE 24 U/L (10-37); BILIRUBIN,TOTAL 0.3 MG/DL (0.1-1.0); BLOOD UREA NITROGEN 15 MG/DL (7-18); CALCIUM 9.1 MG/DL (8.5-10.1); CHLORIDE 100 MMOL/L (99-107); CREATININE 2.49 MG/DL (0.40-0.90); GLUCOSE 157 MG/DL (70-104); POTASSIUM 3.5 MMOL/L (3.5-5.1); SODIUM 138 MMOL/L (135-145); TOTAL CARBON DIOXIDE 31.4 MMOL/L (24-32); TOTAL PROTEIN 6.4 G/DL (6.4-8.2); eGFR 19 ML/MIN
[2018-06-13] VITALS: BP 154/84
[2018-06-13] MEDS: metroNIDAZOLE-Flagyl 500mg/NS 100 ML IV SCH ×3 (02:16→16:03)
[2018-06-13] MEDS: HYDROcodone/acetaminophen 5mg/325mg tablet PO PRN ×2 (03:51→19:32)
[2018-06-13] MEDS: lactulose 20gm/30ml cup PO PRN (03:52)
[2018-06-13 04:53] LABS: BASOPHILS % (AUTO) 0.1 % (0-1); EOSINOPHILS # (AUTO) 0.1 X10'3 (0-0.9); EOSINOPHILS % (AUTO) 2.2 % (0-6); HEMATOCRIT 25.9 % (35.0-45.0); HEMOGLOBIN 8.7 g/dl (12.0-16.0); LYMPHOCYTES # (AUTO) 0.4 X10'3 (1.1-4.8); LYMPHOCYTES % (AUTO) 7.9 % (21-51); MEAN CORPUSCULAR HEMOGLOBIN 29.1 PG (27.0-31.0); MEAN CORPUSCULAR HGB CONC 33.7 g/dL (33.0-36.5); MEAN CORPUSCULAR VOLUME 86.3 FL (78-98); MEAN PLATELET VOLUME 9.1 FL (7.4-10.4); MONOCYTES # (AUTO) 0.6 X10'3 (0-0.9); MONOCYTES % (AUTO) 10.7 % (2-12); NEUTROPHILS # (AUTO) 4.3 X10'3 (1.8-7.7); NEUTROPHILS % (AUTO) 79.1 % (42-75); PLATELET COUNT 110 X10'3 (140-440); RED CELL DISTRIBUTION WIDTH 16.8 % (11.5-14.5); WHITE BLOOD COUNT 5.4 X10'3 (4.5-11.0)
[2018-06-13 05:08] LABS: ALANINE AMINOTRANSFERASE 23 U/L (12-78); ALBUMIN 2.3 G/DL (3.4-5.0); ALBUMIN/GLOBULIN RATIO 0.6 (1.1-1.5); ALKALINE PHOSPHATASE 75 IU/L (46-116); ANION GAP 8 (8-16); ASPARTATE AMINO TRANSFERASE 22 U/L (10-37); BILIRUBIN,TOTAL 0.3 MG/DL (0.1-1.0); BLOOD UREA NITROGEN 20 MG/DL (7-18); BUN/CREATININE RATIO 6.5 (6.6-38.0); CALCIUM 8.9 MG/DL (8.5-10.1); CHLORIDE 100 MMOL/L (99-107); CREATININE 3.09 MG/DL (0.40-0.90); GLUCOSE 105 MG/DL (70-104); POTASSIUM 3.5 MMOL/L (3.5-5.1); SODIUM 137 MMOL/L (135-145); TOTAL CARBON DIOXIDE 29.1 MMOL/L (24-32); TOTAL PROTEIN 6.3 G/DL (6.4-8.2); eGFR 15 ML/MIN
--- NOTE | 2018-06-13 06:28 | NUR ---
Problems reprioritized. Patient report given, questions answered & plan of care reviewed with Charu OSBORN.
--- NOTE | 2018-06-13 07:06 | NUR ---
let tech know pt needs to be weighed before breakfast
[2018-06-13 08:00] VITALS: BP 134/69
[2018-06-13] MEDS: lactobacillus rhamnosus 10,000 MMU CELLS/CAPSULE PO SCH ×2 (08:00→19:32)
[2018-06-13] MEDS: NUT.TX.IMP.RENAL FXN,LAC-REDUC (Nepro) 237 ML VANILLA PO SCH (08:00)
[2018-06-13] MEDS: levoFLOXACIN-Levaquin 250mg/D5 50 ML IV SCH (08:00)
[2018-06-13] MEDS: CefTRIAXone 2gm/D5W 50ml 50 ML IV SCH (12:39)
[2018-06-13] MEDS: HYDROmorphone 1 mg/ml syringe IV PRN ×2 (16:00→22:03)
--- NOTE | 2018-06-13 17:55 | NUR ---
Patient in room PA 351. I have received report from MARYJANE OSBORN and had the opportunity to ask questions and assume patient care.
--- NOTE | 2018-06-13 18:30 | NUR ---
Patient in room PA 351. I have received report from Charu OSBORN and had the opportunity to ask questions and assume patient care.
[2018-06-13 19:30] VITALS: BP 191/84
[2018-06-13] MEDS: enalaprilat dihydrate 2.5mg/2ml vial IV PRN (19:33)
[2018-06-13] MEDS: LORazepam 0.5 MG tablet PO PRN (19:56)
[2018-06-13 20:01] VITALS: BP 163/90
[2018-06-14] VITALS (22 sets, daily range): BP systolic 101–195; BP diastolic 56–90
[2018-06-14] MEDS: metroNIDAZOLE 500mg tablet PO SCH ×2 (00:26→07:58)
[2018-06-14] MEDS ORDERED: cefepime 1GM/NS ADD-VANTAGE 100 ML IV ONE (01:20)
[2018-06-14] MEDS ORDERED: hydrALAZINE 20mg/ml inj. IV PRN ×2 (01:20→14:55)
[2018-06-14] MEDS: acetaminophen 325mg tablet PO PRN (01:30)
[2018-06-14 01:31] LABS: BASOPHILS % (AUTO) 0.5 % (0-1); EOSINOPHILS % (AUTO) 0.5 % (0-6); HEMATOCRIT 31.9 % (35.0-45.0); HEMOGLOBIN 10.3 g/dl (12.0-16.0); LYMPHOCYTES # (AUTO) 0.3 X10'3 (1.1-4.8); LYMPHOCYTES % (AUTO) 6.3 % (21-51); MEAN CORPUSCULAR HEMOGLOBIN 28.4 PG (27.0-31.0); MEAN CORPUSCULAR HGB CONC 32.5 g/dL (33.0-36.5); MEAN CORPUSCULAR VOLUME 87.5 FL (78-98); MONOCYTES # (AUTO) 0.2 X10'3 (0-0.9); MONOCYTES % (AUTO) 5.4 % (2-12); NEUTROPHILS # (AUTO) 3.6 X10'3 (1.8-7.7); NEUTROPHILS % (AUTO) 87.3 % (42-75); PLATELET COUNT 124 X10'3 (140-440); RED BLOOD COUNT 3.64 X10'6 (4.20-5.60); RED CELL DISTRIBUTION WIDTH 16.9 % (11.5-14.5); WHITE BLOOD COUNT 4.1 X10'3 (4.5-11.0)
[2018-06-14 01:39] LABS: ALANINE AMINOTRANSFERASE 20 U/L (12-78); ALBUMIN 2.5 G/DL (3.4-5.0); ALBUMIN/GLOBULIN RATIO 0.6 (1.1-1.5); ALKALINE PHOSPHATASE 92 IU/L (46-116); ANION GAP 14 (8-16); ASPARTATE AMINO TRANSFERASE 19 U/L (10-37); BILIRUBIN,TOTAL 0.5 MG/DL (0.1-1.0); BLOOD UREA NITROGEN 36 MG/DL (7-18); BUN/CREATININE RATIO 7.1 (6.6-38.0); CALCIUM 9.2 MG/DL (8.5-10.1); CHLORIDE 96 MMOL/L (99-107); CREATININE 5.06 MG/DL (0.40-0.90); GLUCOSE 157 MG/DL (70-104); POTASSIUM 3.9 MMOL/L (3.5-5.1); SODIUM 135 MMOL/L (135-145); TOTAL CARBON DIOXIDE 25.4 MMOL/L (24-32); eGFR 9 ML/MIN
[2018-06-14] MEDS: normal saline 1000ml 1,000 ML IV SCH ×2 (01:53→21:20)
[2018-06-14] MEDS: hydrALAZINE 20mg/ml inj. IV PRN ×2 (01:56→07:58)
[2018-06-14] MEDS: diatr meglu/diatrizoate 30ml oral sol.-(3 dose) bottle PO SCH ×3 (02:34→08:09)
--- NOTE | 2018-06-14 05:30 | NUR ---
At beginning of shift patient present with elevated bp of 191/84, temp of 100. 5 Vasotec given per prn orders along with norco for pain. Patient also given ativan about half hour later as appeared anxious. At this time respirations 16. recheck bp at 2030 for 164/90, 94. At 2130 , 100.2, 92,14,174/83,96RA pain of7/10. Continued to monitor. 2330 temp spiked to 101.9,106,22,93ra. 195/90. MD called. Orders for 1 set cx, chest and abd xrays, prn hydralazine for elevated BP, start ivf NS at 50ml/hr, 1X dose of maxipime. PIV started leaking. New PiV started. further orders later for CT with contrast. Patient started on gastroview.MD came to assess patient around 0315. At this time patient is sleepy, easy yo arouse and still c/o 7/10 pain across abdomen. dilauded given for pain control.
[2018-06-14] MEDS: HYDROmorphone 1 mg/ml syringe IV PRN ×2 (05:57→07:58)
--- NOTE | 2018-06-14 06:07 | NUR ---
Patient in room PA 351. I have received report from DANIA OSBORN and had the opportunity to ask questions and assume patient care.
--- NOTE | 2018-06-14 06:20 | NUR ---
Problems reprioritized. Patient report given, questions answered & plan of care reviewed with Charu OSBORN.
--- NOTE | 2018-06-14 06:38 | NUR ---
Problems reprioritized. Patient report given, questions answered & plan of care reviewed with Charu OSBORN.
--- NOTE | 2018-06-14 07:03 | NUR ---
PER DR MARTINEZ'S NOTES AND NOC SHIFT NURSE PT WAS TO BE NPO LAST NIGHT. NO ORDER PUT IN. ORDER PUT IN AT 0700 FOR NPO NOW, AND PT IS GETTING GASTROGRAPH FOR PROCEDURE THIS MORNING. TWO DOSES GIVEN ON NOC SHIFT
[2018-06-14] MEDS: lactobacillus rhamnosus 10,000 MMU CELLS/CAPSULE PO SCH ×2 (07:58→20:00)
[2018-06-14] MEDS: NUT.TX.IMP.RENAL FXN,LAC-REDUC (Nepro) 237 ML VANILLA PO SCH (08:00)
--- NOTE | 2018-06-14 08:03 | NUR ---
vomited 25ml's of yellow-green liquid
[2018-06-14] MEDS ORDERED: normal saline 1000ml 250 ML IV PRN (09:44)
[2018-06-14] MEDS ORDERED: normal saline 1000ml 100 ML IV PRN (09:44)
[2018-06-14] MEDS ORDERED: heparin 1,000 units/ml 10ml inj HE ONE ×2 (09:50)
[2018-06-14] MEDS ORDERED: ringers solution, lacted 1,000 ML IV SCH (14:54)
[2018-06-14] MEDS ORDERED: fentaNYL/PF 50MCG/1 ML 2ML syringe IV PRN ×2 (14:55)
[2018-06-14] MEDS ORDERED: ondansetron/PF 4mg/2ml inj IV PRN (14:55)
[2018-06-14] MEDS ORDERED: morphine 4 MG/ML inj SYRINge IV PRN ×2 (14:55)
[2018-06-14] MEDS ORDERED: ROPIVAcaine 0.5% (5mg/ml) 30ml vial ONE (15:20)
[2018-06-14] MEDS ORDERED: LIDOcaine 1% 30ml preserv. free vial ONE (15:20)
[2018-06-14] MEDS ORDERED: sugammadex 200mg/2ml injection IV ONE (15:34)
[2018-06-14] MEDS ORDERED: fentaNYL/PF 50MCG/1 ML 2ML syringe ONE (15:36)
[2018-06-14] MEDS ORDERED: midazolam 2 mg/2 ml injection ONE (15:37)
[2018-06-14] MEDS ORDERED: albumin (Human) 5% 250ml 250 ML IV ONE (15:37)
[2018-06-14] MEDS ORDERED: rocuronium 10mg/ml inj IV ONE (15:38)
[2018-06-14] MEDS ORDERED: dexamethasone sod phosphate 4mg/ml inj. ONE (15:38)
[2018-06-14] MEDS ORDERED: etomidate 2mg/ml inj. ONE (15:38)
[2018-06-14] MEDS ORDERED: ondansetron/PF 4mg/2ml inj ONE (15:38)
[2018-06-14] MEDS ORDERED: LABETALOL HCL 200mg/40ml (5 MG/ML) inj. IV ONE (15:42)
[2018-06-14] MEDS ORDERED: sevoflurane 250ml liquid IH ONE (15:42)
[2018-06-14] MEDS ORDERED: labetalol 20mg/4ml (5mg/ml) syringe IV ONE ×2 (15:58→18:44)
[2018-06-14] MEDS: metroNIDAZOLE-Flagyl 500mg/NS 100 ML IV SCH (16:00)
[2018-06-14] MEDS ORDERED: phenylephrine 10mg/ml inj. ONE (16:02)
--- NOTE | 2018-06-14 17:09 | NUR ---
Consult re: diverticulitis education. Attempted visit with pt at bedside however pt was not there. Written nutrition therapy for diverticulitis and RD contact information left at patient's bedside for return. Per MD notes repeat CT scan shows increasing amounts of free air, exam now consistent with generalized peritonitis, and suspect sigmoid colon perforated diverticulitis. Documented PO intake averaging 50% with 75% and 100% intake of Nepro likely meeting nutrient needs. [facility] 06/13. Will continue to follow. Rec: 1. Continue low residue diet 2. Nepro WS 3. Monitor need for verbal diverticulitis education 4. Wt per rx Addendum: 06/14/18 at [address] Amended: Links added.
[2018-06-14] MEDS ORDERED: ePHEDrine 50MG/ML INJ. ONE (17:27)
--- NOTE | 2018-06-14 17:54 | NUR ---
Received from OR via BED, accompanied by Anesthesiologist DR HUSSEIN and report given by Anesthesiologist. PT DROWSY, NO S/S OF DISTRESS/DISCOMFORT, ABDOMEN W/WOUND VAC TO 125MMGH CONTINUOUS SUCTION NO DRAINAGE IN CANISTER, FAGAN CATHETER TO GRAVITY DRAINAGE DARK YELLOW URINE, MARYSOL BULB TO SUCTION W/S/S DRAINAGE. Addendum: 06/14/18 at 1830 by Fany Leiva RN Amended: Links added.
[2018-06-14] MEDS ORDERED: HYDROmorphone/NS 1 mg/ml CADD 50 ML IV SCH (18:00)
[2018-06-14] MEDS ORDERED: naloxone 0.4 mg/ml inj IV PRN (18:00)
--- NOTE | 2018-06-14 18:42 | NUR ---
Problems reprioritized. Patient report given, questions answered & plan of care reviewed with DANIA OSBORN.
--- NOTE | 2018-06-14 18:46 | NUR ---
Patient in room PA 351. I have received report from Charu OSBORN and had the opportunity to ask questions and assume patient care. Patient is still off the floor at this time d/t surgery.
[2018-06-14] MEDS: labetalol 20mg/4ml (5mg/ml) syringe IV PRN ×3 (18:47→19:15)
--- NOTE | 2018-06-14 19:18 | NUR ---
PT HAS BEEN HAVING EPISODES OF ST (REGULAR RHYTHM) W/RATE FROM 110 UP TO 150'S, THEN DROPS BACK TO 90'S SR AND THEN GOES BACK UP TO MID 120'S TO 150'S, CALLED DR HUSSEIN AND UPDATED, HAVE GIVEN 5MG OF LABETALOL X 3 DOSES SO FAR, BP AND OTHER VS STABLE, PT C/O ABDOMINAL PAIN 2 MG MORPHINE GIVEN W/RELIEF IN PAIN, WILL CONTINUE TO MONITOR AND PLACE PT ON TELE WHEN TRANSFERRED BACK TO SURGICAL FLOOR. Addendum: 06/14/18 at 1921 by Fany Leiva RN Amended: Links added.
--- NOTE | 2018-06-14 19:48 | NUR ---
Received report from auto wrecker Jane. Patient soon to follow.
--- NOTE | 2018-06-14 20:00 | NUR ---
Patient arrived to floor from recovery room around 2004. Patient is laying in bed alert and oriented but drowsy. steven MCMAHAN hooked up and explained to patient as well as who had just arrived. Patient denies having any pain at this time. Addendum: 06/15/18 at 0130 by Pilar Murrell RN Post-op vs initiated.
--- NOTE | 2018-06-14 20:04 | NUR ---
Report called to receiving nurse. Transferred PT IN STABLE CONDITION, HR SR 80'S via BED ON TELE #4, NO Belongings, RECEIVING RN AT BEDSIDE TO RECEIVE PT, BLL, CALL LIGHT GIVEN, SIDE RAILS UP X 2, PTS PRESENT. Special Issues communicated to receiving nurse. YES. Addendum: 06/14/18 at 2017 by Fany Leiva RN Amended: Links added.
[2018-06-14] MEDS: HYDROmorphone/NS 1 mg/ml CADD 50 ML IV SCH ×3 (20:05→23:00)
[2018-06-14] MEDS: heparin, porcine 5000 units/ml vial SQ SCH (22:23)
[2018-06-15] VITALS: BP_SYST 113; BP_SYST 99; BP_DIAS 50; BP_DIAS 59
[2018-06-15] MEDS: metroNIDAZOLE-Flagyl 500mg/NS 100 ML IV SCH ×4 (00:48→23:53)
[2018-06-15] MEDS: HYDROmorphone/NS 1 mg/ml CADD 50 ML IV SCH ×12 (01:00→22:43)
--- NOTE | 2018-06-15 02:59 | NUR ---
Patient is sound asleep, mouth open and snoring. Respirations at 11 - 12. CYBER SPECIAL AGENT turned off. Will continue to monitor.
[2018-06-15 04:00] VITALS: BP 103/56
--- NOTE | 2018-06-15 06:00 | NUR ---
Problems reprioritized. Patient report given, questions answered & plan of care reviewed with Elsa OSBORN. Patient is now awake and respirations have increased.
[2018-06-15 06:19] LABS: BASOPHILS % (AUTO) 0.1 % (0-1); EOSINOPHILS % (AUTO) 0.1 % (0-6); HEMATOCRIT 23.5 % (35.0-45.0); HEMOGLOBIN 7.8 g/dl (12.0-16.0); LYMPHOCYTES # (AUTO) 0.2 X10'3 (1.1-4.8); LYMPHOCYTES % (AUTO) 3.7 % (21-51); MEAN CORPUSCULAR VOLUME 88.1 FL (78-98); MEAN PLATELET VOLUME 9.5 FL (7.4-10.4); MONOCYTES # (AUTO) 0.4 X10'3 (0-0.9); MONOCYTES % (AUTO) 6.6 % (2-12); NEUTROPHILS # (AUTO) 5.1 X10'3 (1.8-7.7); NEUTROPHILS % (AUTO) 89.5 % (42-75); PLATELET COUNT 91 X10'3 (140-440); RED BLOOD COUNT 2.67 X10'6 (4.20-5.60); RED CELL DISTRIBUTION WIDTH 17.3 % (11.5-14.5); WHITE BLOOD COUNT 5.7 X10'3 (4.5-11.0)
[2018-06-15 06:31] LABS: ALANINE AMINOTRANSFERASE 14 U/L (12-78); ALBUMIN 1.9 G/DL (3.4-5.0); ALBUMIN/GLOBULIN RATIO 0.6 (1.1-1.5); ALKALINE PHOSPHATASE 48 IU/L (46-116); ANION GAP 9 (8-16); ASPARTATE AMINO TRANSFERASE 16 U/L (10-37); BILIRUBIN,TOTAL 0.3 MG/DL (0.1-1.0); BLOOD UREA NITROGEN 30 MG/DL (7-18); BUN/CREATININE RATIO 7.6 (6.6-38.0); CALCIUM 8.6 MG/DL (8.5-10.1); CHLORIDE 105 MMOL/L (99-107); CREATININE 3.95 MG/DL (0.40-0.90); GLUCOSE 148 MG/DL (70-104); MAGNESIUM 2.1 MG/DL (1.5-2.4); POTASSIUM 4.6 MMOL/L (3.5-5.1); SODIUM 138 MMOL/L (135-145); TOTAL CARBON DIOXIDE 23.6 MMOL/L (24-32); TOTAL PROTEIN 5.2 G/DL (6.4-8.2); eGFR 11 ML/MIN
[2018-06-15 06:36] LABS: CREATININE 4.01 MG/DL (0.40-0.90); eGFR 11 ML/MIN
[2018-06-15 07:00] VITALS: BP 124/60
[2018-06-15 07:11] LABS: ANISOCYTOSIS 1+; PLATELET ESTIMATE DECREASED; TOTAL CELLS COUNTED 100
[2018-06-15 07:12] LABS: HYPOCHROMASIA 1+; POLYCHROMASIA 1+; TOXIC GRANULATION 2+
[2018-06-15] MEDS: NUT.TX.IMP.RENAL FXN,LAC-REDUC (Nepro) 237 ML VANILLA PO SCH (08:00)
[2018-06-15] MEDS: heparin, porcine 5000 units/ml vial SQ SCH ×2 (08:00→20:00)
[2018-06-15] MEDS: lactobacillus rhamnosus 10,000 MMU CELLS/CAPSULE PO SCH ×2 (08:20→19:48)
[2018-06-15] MEDS ORDERED: levoFLOXACIN 250mg tablet PO SCH (11:00)
[2018-06-15] MEDS: normal saline 1000ml 1,000 ML IV SCH (13:32)
--- NOTE | 2018-06-15 17:48 | NUR ---
CALLED DR GORDON RE PT ABDOMEN SLIGHTLY DISTENDED COMPARED TO THE AM. NO ANSWER AT THIS TIME.
--- NOTE | 2018-06-15 17:57 | NUR ---
NOTIFIED PRUDENCE DAVENPORT PA, RE PT DISTENDED ABD AND APPEARED TO BE RETAINING FLUID, WELL NO URINE OUTPUT TODAY. DECREASED FLUIDS, MADE PT NPO. SHE WILL REASSESS PT IN THE AM.
[2018-06-15 18:00] VITALS: BP 128/62
--- NOTE | 2018-06-15 18:30 | NUR ---
Patient in room PA 351. I have received report from Elsa henning and had the opportunity to ask questions and assume patient care.
--- NOTE | 2018-06-15 18:52 | NUR ---
Problems reprioritized. Patient report given, questions answered & plan of care reviewed with ABHAY OSBORN.
[2018-06-15] MEDS: cefepime inj. 0.5 GM in normal saline 100ml IV soln 100 ML IV SCH (21:42)
[2018-06-16] VITALS: BP 157/74
[2018-06-16] MEDS: HYDROmorphone/NS 1 mg/ml CADD 50 ML IV SCH ×12 (01:00→23:00)
[2018-06-16 05:25] LABS: BASOPHILS % (AUTO) 0.2 % (0-1); EOSINOPHILS % (AUTO) 0 % (0-6); HEMATOCRIT 22.9 % (35.0-45.0); HEMOGLOBIN 7.4 g/dl (12.0-16.0); LYMPHOCYTES # (AUTO) 0.2 X10'3 (1.1-4.8); LYMPHOCYTES % (AUTO) 2.7 % (21-51); MEAN CORPUSCULAR HEMOGLOBIN 28.6 PG (27.0-31.0); MEAN CORPUSCULAR HGB CONC 32.4 g/dL (33.0-36.5); MEAN CORPUSCULAR VOLUME 88.2 FL (78-98); MEAN PLATELET VOLUME 9.3 FL (7.4-10.4); MONOCYTES # (AUTO) 0.4 X10'3 (0-0.9); MONOCYTES % (AUTO) 4.5 % (2-12); NEUTROPHILS # (AUTO) 7.9 X10'3 (1.8-7.7); NEUTROPHILS % (AUTO) 92.6 % (42-75); PLATELET COUNT 112 X10'3 (140-440); RED CELL DISTRIBUTION WIDTH 17.4 % (11.5-14.5); WHITE BLOOD COUNT 8.6 X10'3 (4.5-11.0)
--- NOTE | 2018-06-16 05:29 | NUR ---
Howell cath removed per order, no complications. 8 mL taken from balloon
[2018-06-16 05:53] LABS: ALANINE AMINOTRANSFERASE 14 U/L (12-78); ALBUMIN/GLOBULIN RATIO 0.6 (1.1-1.5); ALKALINE PHOSPHATASE 60 IU/L (46-116); ANION GAP 12 (8-16); ASPARTATE AMINO TRANSFERASE 19 U/L (10-37); BILIRUBIN,TOTAL 0.3 MG/DL (0.1-1.0); BLOOD UREA NITROGEN 56 MG/DL (7-18); BUN/CREATININE RATIO 10.2 (6.6-38.0); CALCIUM 8.9 MG/DL (8.5-10.1); CHLORIDE 100 MMOL/L (99-107); CREATININE 5.51 MG/DL (0.40-0.90); GLUCOSE 101 MG/DL (70-104); MAGNESIUM 2.5 MG/DL (1.5-2.4); PHOSPHORUS 5.4 MG/DL (2.3-4.5); POTASSIUM 4.2 MMOL/L (3.5-5.1); SODIUM 135 MMOL/L (135-145); TOTAL CARBON DIOXIDE 22.7 MMOL/L (24-32); TOTAL PROTEIN 5.6 G/DL (6.4-8.2); eGFR 8 ML/MIN
[2018-06-16 06:26] LABS: NUCLEATED RED BLOOD CELLS 1 /100WBC (0-0); TOTAL CELLS COUNTED 100
[2018-06-16 06:28] LABS: ANISOCYTOSIS 1+; HYPOCHROMASIA 1+; PLATELET ESTIMATE DECREASED; POLYCHROMASIA FEW; TOXIC GRANULATION 2+; TOXIC VACUOLATION FEW
--- NOTE | 2018-06-16 06:30 | NUR ---
Patient in room PA 351. I have received report from Harish OSBORN and had the opportunity to ask questions and assume patient care.
--- NOTE | 2018-06-16 06:50 | NUR ---
Problems reprioritized. Patient report given, questions answered & plan of care reviewed with Gaudencio rn.
[2018-06-16 08:00] VITALS: BP_SYST 142; BP_SYST 153; BP_DIAS 75; BP_DIAS 94
[2018-06-16] MEDS: NUT.TX.IMP.RENAL FXN,LAC-REDUC (Nepro) 237 ML VANILLA PO SCH (08:00)
[2018-06-16] MEDS: heparin, porcine 5000 units/ml vial SQ SCH ×2 (08:00→21:23)
[2018-06-16] MEDS: metroNIDAZOLE-Flagyl 500mg/NS 100 ML IV SCH ×2 (10:15→16:55)
[2018-06-16] MEDS: lactobacillus rhamnosus 10,000 MMU CELLS/CAPSULE PO SCH ×2 (10:20→20:00)
[2018-06-16 12:00] VITALS: BP 158/72
--- NOTE | 2018-06-16 18:30 | NUR ---
Problems reprioritized. Patient report given, questions answered & plan of care reviewed with MARYJANE OSBORN.
--- NOTE | 2018-06-16 19:26 | NUR ---
Patient in room PA 351. I have received report from Gaudencio OSBORN and had the opportunity to ask questions and assume patient care.
[2018-06-16 20:00] VITALS: BP 180/87
[2018-06-16] MEDS: cefepime inj. 0.5 GM in normal saline 100ml IV soln 100 ML IV SCH (21:20)
[2018-06-17] MEDS: metroNIDAZOLE-Flagyl 500mg/NS 100 ML IV SCH ×3 (00:06→15:46)
[2018-06-17 00:28] VITALS: BP 152/87
[2018-06-17] MEDS: HYDROmorphone/NS 1 mg/ml CADD 50 ML IV SCH ×12 (01:00→23:00)
[2018-06-17] MEDS: ondansetron/PF 4mg/2ml inj IV PRN ×3 (01:25→15:39)
[2018-06-17 01:54] LABS: BASOPHILS % (AUTO) 0.1 % (0-1); EOSINOPHILS # (AUTO) 0.1 X10'3 (0-0.9); EOSINOPHILS % (AUTO) 0.6 % (0-6); HEMATOCRIT 27.9 % (35.0-45.0); HEMOGLOBIN 8.9 g/dl (12.0-16.0); LYMPHOCYTES # (AUTO) 1.4 X10'3 (1.1-4.8); LYMPHOCYTES % (AUTO) 10.8 % (21-51); MEAN CORPUSCULAR HEMOGLOBIN 28.3 PG (27.0-31.0); MEAN CORPUSCULAR HGB CONC 31.8 g/dL (33.0-36.5); MEAN CORPUSCULAR VOLUME 88.9 FL (78-98); MEAN PLATELET VOLUME 9.2 FL (7.4-10.4); MONOCYTES # (AUTO) 0.4 X10'3 (0-0.9); MONOCYTES % (AUTO) 3.3 % (2-12); NEUTROPHILS # (AUTO) 10.8 X10'3 (1.8-7.7); NEUTROPHILS % (AUTO) 85.2 % (42-75); PLATELET COUNT 136 X10'3 (140-440); RED BLOOD COUNT 3.14 X10'6 (4.20-5.60); RED CELL DISTRIBUTION WIDTH 17.8 % (11.5-14.5); WHITE BLOOD COUNT 12.7 X10'3 (4.5-11.0)
--- NOTE | 2018-06-17 01:56 | NUR ---
At approximately 0100 pt was very painful and nauseous. RN found IV to have dislodged and bed damp. A new IV was initiated, Zofran was administered for nausea and a bolus of 0.20mg of dilaudid was administered. Bed linens were changed. Will continue to monitor.
[2018-06-17 02:22] LABS: ALANINE AMINOTRANSFERASE 18 U/L (12-78); ALBUMIN/GLOBULIN RATIO 0.5 (1.1-1.5); ALKALINE PHOSPHATASE 71 IU/L (46-116); ANION GAP 11 (8-16); ASPARTATE AMINO TRANSFERASE 21 U/L (10-37); BILIRUBIN,TOTAL 0.4 MG/DL (0.1-1.0); BLOOD UREA NITROGEN 70 MG/DL (7-18); BUN/CREATININE RATIO 10.2 (6.6-38.0); CALCIUM 8.8 MG/DL (8.5-10.1); CHLORIDE 99 MMOL/L (99-107); CREATININE 6.87 MG/DL (0.40-0.90); GLUCOSE 101 MG/DL (70-104); MAGNESIUM 2.6 MG/DL (1.5-2.4); PHOSPHORUS 4.9 MG/DL (2.3-4.5); POTASSIUM 4.4 MMOL/L (3.5-5.1); SODIUM 132 MMOL/L (135-145); TOTAL CARBON DIOXIDE 22.4 MMOL/L (24-32); TOTAL PROTEIN 5.7 G/DL (6.4-8.2); eGFR 6 ML/MIN
[2018-06-17 03:40] LABS: ANISOCYTOSIS 1+; NUCLEATED RED BLOOD CELLS 3 /100WBC (0-0); PLATELET ESTIMATE DECREASED; TOTAL CELLS COUNTED 100
[2018-06-17 03:41] LABS: HYPOCHROMASIA 1+; POLYCHROMASIA FEW; TOXIC GRANULATION 1+
--- NOTE | 2018-06-17 04:18 | NUR ---
Pt states that CADD isn't helping with the pain. States pain is 7/10. Per the parameters ordered, CADD was increased 1.5 times the standard dose of 0.20mg to 0.30 and a bolus of 0.20mg was administered for the break through pain.
--- NOTE | 2018-06-17 06:35 | NUR ---
Patient in room PA 351. I have received report from IRENA Joya and had the opportunity to ask questions and assume patient care. Patient resting comfortably at this time. Call light and items of frequent use in reach of patient.
--- NOTE | 2018-06-17 06:42 | NUR ---
Problems reprioritized. Patient report given, questions answered & plan of care reviewed with Maria OSBORN.
[2018-06-17 08:00] VITALS: BP 169/87
[2018-06-17] MEDS: lactobacillus rhamnosus 10,000 MMU CELLS/CAPSULE PO SCH ×2 (09:00→20:00)
[2018-06-17] MEDS: heparin, porcine 5000 units/ml vial SQ SCH ×2 (09:00→20:33)
[2018-06-17] MEDS: NUT.TX.IMP.RENAL FXN,LAC-REDUC (Nepro) 237 ML VANILLA PO SCH (09:01)
[2018-06-17] MEDS ORDERED: heparin 1,000unit/ml 10ml vial 10 ML IV ONE (09:37)
[2018-06-17] MEDS ORDERED: normal saline 1000ml 250 ML IV PRN (09:37)
[2018-06-17] MEDS ORDERED: epoetin 20,000 units/ml inj IV ONE (09:40)
[2018-06-17] MEDS ORDERED: heparin 1,000 units/ml 10ml inj HE ONE ×2 (09:45)
[2018-06-17 11:00] VITALS: BP 158/78
--- NOTE | 2018-06-17 12:35 | NUR ---
WOUND VAC EDUCATION PROVIDED BY WOUND CARE 1. Patient instructed to call the Wound Center or their Home Health Agency immediately if: * They notice a change in the color or amount of the fluid in the canister. * Their wound looks more red than usual or has a foul smell. * The skin around their wound looks reddened or irritated. * The dressing feels loose or appears to be loose. * They experience any increase or changes in their pain. * The alarm will not turn off. 2. Patient instructed that they should not be disconnected from suction for more than 2 hours at a time. * If they are not able to get the suction back on, they need to remove the dressing and take all of the foam out of the wound. * Then moisten sterile gauze with normal saline and place on/in the wound. * Change the dressing once a day until arrangements have been made to replace the wound vac dressing. 3. Patient instructed to turn the wound vac machine OFF and call 911 or go to the ED immediately if their canister fills rapidly with blood. 4. If any of these occur while in the hospital tell a nurse immediately. Addendum: 06/17/18 at 1236 by Meme Foster RN Amended: Links added.
[2018-06-17] MEDS: normal saline 1000ml 1,000 ML IV SCH (15:43)
--- NOTE | 2018-06-17 18:15 | NUR ---
Problems reprioritized. Patient report given, questions answered & plan of care reviewed with IRENA Joya.
--- NOTE | 2018-06-17 18:53 | NUR ---
Patient in room PA 351. I have received report from Maria OSBORN and had the opportunity to ask questions and assume patient care. Pt receiving dialysis in bed. at bedside. Wound vac seal check shows no leaks, pump cleared. No signs of distress noted, will continue to monitor.
[2018-06-17 20:00] VITALS: BP 122/67
[2018-06-17] MEDS: cefepime inj. 0.5 GM in normal saline 100ml IV soln 100 ML IV SCH (21:04)
[2018-06-18] VITALS: BP 171/87
[2018-06-18] MEDS: metroNIDAZOLE-Flagyl 500mg/NS 100 ML IV SCH ×3 (00:28→16:57)
[2018-06-18] MEDS: HYDROmorphone/NS 1 mg/ml CADD 50 ML IV SCH ×12 (01:00→23:00)
[2018-06-18] MEDS: ondansetron/PF 4mg/2ml inj IV PRN (02:06)
[2018-06-18 05:56] LABS: BASOPHILS % (AUTO) 0.3 % (0-1); EOSINOPHILS % (AUTO) 0.1 % (0-6); HEMATOCRIT 28.6 % (35.0-45.0); HEMOGLOBIN 9.1 g/dl (12.0-16.0); LYMPHOCYTES # (AUTO) 0.7 X10'3 (1.1-4.8); LYMPHOCYTES % (AUTO) 4.2 % (21-51); MEAN CORPUSCULAR HEMOGLOBIN 28.2 PG (27.0-31.0); MEAN CORPUSCULAR VOLUME 87.9 FL (78-98); MEAN PLATELET VOLUME 9.3 FL (7.4-10.4); MONOCYTES # (AUTO) 0.9 X10'3 (0-0.9); MONOCYTES % (AUTO) 5.3 % (2-12); NEUTROPHILS # (AUTO) 15.8 X10'3 (1.8-7.7); NEUTROPHILS % (AUTO) 90.1 % (42-75); PLATELET COUNT 153 X10'3 (140-440); RED BLOOD COUNT 3.25 X10'6 (4.20-5.60); WHITE BLOOD COUNT 17.5 X10'3 (4.5-11.0)
[2018-06-18 06:07] LABS: ALBUMIN 1.8 G/DL (3.4-5.0); ANION GAP 12 (8-16); BLOOD UREA NITROGEN 42 MG/DL (7-18); BUN/CREATININE RATIO 10.4 (6.6-38.0); CALCIUM 8.6 MG/DL (8.5-10.1); CHLORIDE 99 MMOL/L (99-107); CREATININE 4.04 MG/DL (0.40-0.90); GLUCOSE 98 MG/DL (70-104); MAGNESIUM 2.3 MG/DL (1.5-2.4); SODIUM 135 MMOL/L (135-145); TOTAL CARBON DIOXIDE 24.5 MMOL/L (24-32); eGFR 11 ML/MIN
--- NOTE | 2018-06-18 06:28 | NUR ---
Problems reprioritized. Patient report given, questions answered & plan of care reviewed with Maria OSBORN.
--- NOTE | 2018-06-18 06:30 | NUR ---
Patient in room PA 351. I have received report from IRENA Joya and had the opportunity to ask questions and assume patient care.
[2018-06-18 08:00] VITALS: BP 180/78
[2018-06-18] MEDS: proCHLORperazine 10 MG/2 ml inj IV PRN (08:02)
[2018-06-18] MEDS: NUT.TX.IMP.RENAL FXN,LAC-REDUC (Nepro) 237 ML VANILLA PO SCH (08:09)
[2018-06-18] MEDS: lactobacillus rhamnosus 10,000 MMU CELLS/CAPSULE PO SCH ×2 (08:10→20:00)
[2018-06-18] MEDS: heparin, porcine 5000 units/ml vial SQ SCH ×2 (08:11→20:29)
[2018-06-18] MEDS: CADD PCA waste documentation MC PRN (08:36)
[2018-06-18] MEDS: LORazepam 0.5 MG tablet PO PRN (09:27)
[2018-06-18] MEDS ORDERED: potassium Cl 40MEQ/NS 500ml 500 ML IV PRN ×2 (09:55)
[2018-06-18] MEDS ORDERED: magnesium Cl slow-release 64mg tablet PO PRN (09:55)
[2018-06-18] MEDS ORDERED: potassium Cl 20 mEq SR tablet PO PRN ×2 (09:55)
[2018-06-18] MEDS ORDERED: magnesium 4gm in 100ml NS 100 ML IV PRN (09:55)
--- NOTE | 2018-06-18 11:18 | NUR ---
NG tube inserted. [address]en[address] used. Patient tolerated insertion well. Upon insertion patient produced 1250 ml of emesis. NG tube placed on low continues suction. RN notified.
[2018-06-18 12:00] VITALS: BP 134/64
--- NOTE | 2018-06-18 18:40 | NUR ---
Problems reprioritized. Patient report given, questions answered & plan of care reviewed with IRENA Joya.
--- NOTE | 2018-06-18 18:41 | NUR ---
Patient in room PA 351. I have received report from Maria OSBORN and had the opportunity to ask questions and assume patient care.
[2018-06-18 19:49] VITALS: BP 171/82
[2018-06-18] MEDS: cefepime inj. 0.5 GM in normal saline 100ml IV soln 100 ML IV SCH (20:28)
[2018-06-19] VITALS: BP 157/68
[2018-06-19] MEDS: HYDROmorphone/NS 1 mg/ml CADD 50 ML IV SCH ×12 (01:00→23:00)
[2018-06-19] MEDS: proCHLORperazine 10 MG/2 ml inj IV PRN ×2 (01:33→08:41)
[2018-06-19] MEDS: metroNIDAZOLE-Flagyl 500mg/NS 100 ML IV SCH ×3 (01:34→16:58)
[2018-06-19 05:49] LABS: BASOPHILS % (AUTO) 0.3 % (0-1); EOSINOPHILS # (AUTO) 0.1 X10'3 (0-0.9); EOSINOPHILS % (AUTO) 0.8 % (0-6); HEMATOCRIT 24.1 % (35.0-45.0); HEMOGLOBIN 8.2 g/dl (12.0-16.0); LYMPHOCYTES # (AUTO) 0.9 X10'3 (1.1-4.8); LYMPHOCYTES % (AUTO) 6.8 % (21-51); MEAN CORPUSCULAR HEMOGLOBIN 29.2 PG (27.0-31.0); MEAN CORPUSCULAR HGB CONC 34.1 g/dL (33.0-36.5); MEAN CORPUSCULAR VOLUME 85.6 FL (78-98); MEAN PLATELET VOLUME 9.3 FL (7.4-10.4); MONOCYTES # (AUTO) 0.9 X10'3 (0-0.9); MONOCYTES % (AUTO) 6.5 % (2-12); NEUTROPHILS # (AUTO) 11.3 X10'3 (1.8-7.7); NEUTROPHILS % (AUTO) 85.6 % (42-75); PLATELET COUNT 164 X10'3 (140-440); RED BLOOD COUNT 2.81 X10'6 (4.20-5.60); RED CELL DISTRIBUTION WIDTH 16.9 % (11.5-14.5); WHITE BLOOD COUNT 13.2 X10'3 (4.5-11.0)
[2018-06-19 05:59] LABS: ANION GAP 11 (8-16); BLOOD UREA NITROGEN 71 MG/DL (7-18); BUN/CREATININE RATIO 11.5 (6.6-38.0); CALCIUM 8.6 MG/DL (8.5-10.1); CHLORIDE 98 MMOL/L (99-107); CREATININE 6.15 MG/DL (0.40-0.90); GLUCOSE 91 MG/DL (70-104); MAGNESIUM 2.7 MG/DL (1.5-2.4); PHOSPHORUS 8.6 MG/DL (2.3-4.5); POTASSIUM 4.2 MMOL/L (3.5-5.1); SODIUM 140 MMOL/L (135-145); TOTAL CARBON DIOXIDE 31.3 MMOL/L (24-32); eGFR 7 ML/MIN
[2018-06-19 06:00] LABS: ALBUMIN 1.9 G/DL (3.4-5.0)
--- NOTE | 2018-06-19 06:49 | NUR ---
Problems reprioritized. Patient report given, questions answered & plan of care reviewed with Keerthi OSBORN.
[2018-06-19 07:02] LABS: ANISOCYTOSIS 1+; NUCLEATED RED BLOOD CELLS 1 /100WBC (0-0); PLATELET ESTIMATE NORMAL; TOTAL CELLS COUNTED 100
[2018-06-19 07:03] LABS: HYPOCHROMASIA 1+; POIKILOCYTOSIS 1+; STOMATOCYTES 1+; TARGET CELLS FEW
[2018-06-19 07:04] LABS: LARGE PLATELETS FEW
[2018-06-19 07:40] VITALS: BP 149/71
[2018-06-19] MEDS ORDERED: normal saline 1000ml 250 ML IV PRN (08:00)
[2018-06-19] MEDS ORDERED: heparin 1,000unit/ml 10ml vial 10 ML IV ONE (08:00)
[2018-06-19] MEDS: lactobacillus rhamnosus 10,000 MMU CELLS/CAPSULE PO SCH ×2 (08:00→20:00)
[2018-06-19] MEDS ORDERED: epoetin 20,000 units/ml inj IV ONE (08:00)
[2018-06-19] MEDS ORDERED: heparin 1,000 units/ml 10ml inj HE ONE ×2 (08:00)
[2018-06-19] MEDS: NUT.TX.IMP.RENAL FXN,LAC-REDUC (Nepro) 237 ML VANILLA PO SCH (08:00)
[2018-06-19] MEDS: heparin, porcine 5000 units/ml vial SQ SCH ×2 (08:41→20:49)
[2018-06-19 11:00] VITALS: BP 171/78
--- NOTE | 2018-06-19 14:01 | NUR ---
reassessment: Pt s/p ex lap w/ oophorectomy, proximal simgoid, L colon, and distal transverse colon resection for peritonitis r/t perforation; stool in L hemipelvis per MD note. Hx polycystic kidney disease w/ ARF now on HD. Pt NPO PODD #4; RD d/w RN to cancel clear liquid diet since NPO w/ NG in to suction. 800ml output improved since yesterday per MD note. Pt has no gas/BM yet w/ bowel sounds present. LBM 06/13. RD d/w RN for promotility/opioid agonist since pt on pain meds w/ post-op ileus. Last bowel care dose 06/08. Will monitor for diet advancement and additional bowel care needs post-op. Rec: 1. Advance to low residue diet 2. Once PO; Nepro WS 3. monitor for verbal diverticulitis/high protein education reinforcement needs 4. GI promotility for post-op ileus per MD approval 5. Wt per rx Addendum: 06/19/18 at [address] Amended: Links added.
[2018-06-19 14:47] VITALS: BP 173/76
[2018-06-19] MEDS: hydrALAZINE 20mg/ml inj. IV PRN (14:53)
[2018-06-19 15:15] VITALS: BP 139/68
[2018-06-19] MEDS: normal saline 1000ml 1,000 ML IV SCH (17:20)
--- NOTE | 2018-06-19 18:26 | NUR ---
Problems reprioritized. Patient report given, questions answered & plan of care reviewed with Floridalma RN.
[2018-06-19 19:30] VITALS: BP 132/64
[2018-06-19] MEDS: cefepime inj. 0.5 GM in normal saline 100ml IV soln 100 ML IV SCH ×2 (20:50→22:21)
--- NOTE | 2018-06-19 20:54 | NUR ---
maxipine on hold til after dialysis (per dialysis nurse)
--- NOTE | 2018-06-19 21:15 | NUR ---
March, ZIPPER JOINER here on floor for another pt; informed of low urine output's, large n/g outputs & IV rate of 10ml/hr; pt is NPO & also informed HD is at 2 liters off; call placed to Dr Hargrove, by March, ZIPPER JOINER; informed MD does not want to increase IV fluids at this time
[2018-06-20] VITALS: BP 158/69
[2018-06-20] MEDS: metroNIDAZOLE-Flagyl 500mg/NS 100 ML IV SCH ×3 (00:08→08:10)
[2018-06-20] MEDS: HYDROmorphone/NS 1 mg/ml CADD 50 ML IV SCH ×11 (01:00→21:00)
[2018-06-20 02:20] VITALS: BP 126/58
[2018-06-20 06:05] LABS: BASOPHILS % (AUTO) 0.2 % (0-1); EOSINOPHILS # (AUTO) 0.1 X10'3 (0-0.9); EOSINOPHILS % (AUTO) 0.5 % (0-6); HEMATOCRIT 26.1 % (35.0-45.0); HEMOGLOBIN 8.4 g/dl (12.0-16.0); LYMPHOCYTES # (AUTO) 0.7 X10'3 (1.1-4.8); MEAN CORPUSCULAR HEMOGLOBIN 28.4 PG (27.0-31.0); MEAN CORPUSCULAR HGB CONC 32.3 g/dL (33.0-36.5); MEAN CORPUSCULAR VOLUME 87.8 FL (78-98); MEAN PLATELET VOLUME 9.5 FL (7.4-10.4); MONOCYTES # (AUTO) 0.8 X10'3 (0-0.9); MONOCYTES % (AUTO) 6.4 % (2-12); NEUTROPHILS # (AUTO) 10.6 X10'3 (1.8-7.7); NEUTROPHILS % (AUTO) 86.9 % (42-75); PLATELET COUNT 191 X10'3 (140-440); RED BLOOD COUNT 2.97 X10'6 (4.20-5.60); RED CELL DISTRIBUTION WIDTH 16.9 % (11.5-14.5); WHITE BLOOD COUNT 12.2 X10'3 (4.5-11.0)
[2018-06-20 06:18] LABS: ALBUMIN 1.9 G/DL (3.4-5.0); ANION GAP 9 (8-16); BLOOD UREA NITROGEN 34 MG/DL (7-18); BUN/CREATININE RATIO 9.7 (6.6-38.0); CALCIUM 8.5 MG/DL (8.5-10.1); CHLORIDE 101 MMOL/L (99-107); GLUCOSE 89 MG/DL (70-104); POTASSIUM 4.2 MMOL/L (3.5-5.1); SODIUM 142 MMOL/L (135-145); TOTAL CARBON DIOXIDE 31.8 MMOL/L (24-32); eGFR 13 ML/MIN
--- NOTE | 2018-06-20 06:20 | NUR ---
Patient in room PA 351. I have received report from IRENA Hedrick and had the opportunity to ask questions and assume patient care.
[2018-06-20 07:40] VITALS: BP 140/63
[2018-06-20] MEDS: lactobacillus rhamnosus 10,000 MMU CELLS/CAPSULE PO SCH ×2 (08:00→20:00)
[2018-06-20] MEDS: NUT.TX.IMP.RENAL FXN,LAC-REDUC (Nepro) 237 ML VANILLA PO SCH (08:00)
[2018-06-20] MEDS: heparin, porcine 5000 units/ml vial SQ SCH ×2 (08:16→20:37)
[2018-06-20] MEDS: proCHLORperazine 10 MG/2 ml inj IV PRN ×2 (08:16)
--- NOTE | 2018-06-20 11:47 | NUR ---
Patient in room PA 351. I have received report from Cassi Kessler had the opportunity to ask questions and assume patient care.
--- NOTE | 2018-06-20 11:47 | NUR ---
Problems reprioritized. Patient report given, questions answered & plan of care reviewed with Lauren BLAIR
[2018-06-20 12:04] VITALS: BP 118/80
--- NOTE | 2018-06-20 18:36 | NUR ---
Problems reprioritized. Patient report given, questions answered & plan of care reviewed with IRENA Ornelas and adonis Hilario RN.
--- NOTE | 2018-06-20 18:54 | NUR ---
Received report from Cassi OSBORN with Yanelis RN pt is eating ice chips on RA, at bedside, NS running@10mL/hr, WV in place,
[2018-06-20 19:00] VITALS: BP 148/67
[2018-06-20] MEDS: cefepime inj. 0.5 GM in normal saline 100ml IV soln 100 ML IV SCH (20:36)
[2018-06-20] MEDS: normal saline 1000ml 1,000 ML IV SCH (20:38)
[2018-06-21] VITALS: BP 155/66
[2018-06-21] MEDS: metroNIDAZOLE-Flagyl 500mg/NS 100 ML IV SCH ×3 (00:14→16:43)
[2018-06-21] MEDS: CADD PCA waste documentation MC PRN (00:25)
[2018-06-21] MEDS: HYDROmorphone/NS 1 mg/ml CADD 50 ML IV SCH ×13 (00:33→23:00)
[2018-06-21 05:46] LABS: BASOPHILS % (AUTO) 0.3 % (0-1); EOSINOPHILS # (AUTO) 0.1 X10'3 (0-0.9); EOSINOPHILS % (AUTO) 1.1 % (0-6); HEMATOCRIT 24.9 % (35.0-45.0); HEMOGLOBIN 8.1 g/dl (12.0-16.0); LYMPHOCYTES # (AUTO) 0.9 X10'3 (1.1-4.8); LYMPHOCYTES % (AUTO) 7.8 % (21-51); MEAN CORPUSCULAR HGB CONC 32.5 g/dL (33.0-36.5); MEAN CORPUSCULAR VOLUME 89.1 FL (78-98); MEAN PLATELET VOLUME 9.9 FL (7.4-10.4); MONOCYTES # (AUTO) 0.8 X10'3 (0-0.9); MONOCYTES % (AUTO) 7.7 % (2-12); NEUTROPHILS % (AUTO) 83.1 % (42-75); PLATELET COUNT 201 X10'3 (140-440); WHITE BLOOD COUNT 10.9 X10'3 (4.5-11.0)
--- NOTE | 2018-06-21 06:05 | NUR ---
no new drainage in WV
--- NOTE | 2018-06-21 06:20 | NUR ---
I have received report from Ceci OSBORN and had the opportunity to ask questions and assume patient care.
[2018-06-21 06:25] LABS: ALBUMIN 1.8 G/DL (3.4-5.0); ANION GAP 16 (8-16); BLOOD UREA NITROGEN 65 MG/DL (7-18); BUN/CREATININE RATIO 11.5 (6.6-38.0); CALCIUM 8.7 MG/DL (8.5-10.1); CHLORIDE 100 MMOL/L (99-107); CREATININE 5.66 MG/DL (0.40-0.90); GLUCOSE 84 MG/DL (70-104); MAGNESIUM 2.6 MG/DL (1.5-2.4); SODIUM 144 MMOL/L (135-145); TOTAL CARBON DIOXIDE 28.1 MMOL/L (24-32); eGFR 8 ML/MIN
[2018-06-21 06:32] LABS: POTASSIUM 4.3 MMOL/L (3.5-5.1)
--- NOTE | 2018-06-21 06:45 | NUR ---
Problems reprioritized. Patient report given, questions answered & plan of care reviewed with Silvana OSBORN.
[2018-06-21] MEDS: lactobacillus rhamnosus 10,000 MMU CELLS/CAPSULE PO SCH ×2 (07:48→20:48)
[2018-06-21] MEDS: heparin, porcine 5000 units/ml vial SQ SCH ×2 (07:48→20:48)
[2018-06-21 08:00] VITALS: BP 155/69
[2018-06-21] MEDS: NUT.TX.IMP.RENAL FXN,LAC-REDUC (Nepro) 237 ML VANILLA PO SCH (08:00)
--- NOTE | 2018-06-21 08:01 | NUR ---
Student Medication Administration: For this medication-pass time frame, all medication were reviewed, dispensed, administered and documented per hospital policy by Diya RICHARDSON from [facility].
--- NOTE | 2018-06-21 08:57 | NUR ---
Just DC'd patient's NG tube. Patient tolerated well. Addendum: 06/21/18 at 0857 by Diya MORALES Amended: Links added.
[2018-06-21] MEDS ORDERED: normal saline 1000ml 250 ML IV PRN (09:13)
[2018-06-21] MEDS ORDERED: heparin 1,000unit/ml 10ml vial 10 ML IV ONE (09:13)
[2018-06-21] MEDS ORDERED: epoetin 20,000 units/ml inj IV ONE (09:15)
[2018-06-21] MEDS ORDERED: heparin 1,000 units/ml 10ml inj HE ONE ×2 (09:20)
--- NOTE | 2018-06-21 09:36 | NUR ---
Dialysis patient in with patient to start dialysis treatment.
[2018-06-21 11:00] VITALS: BP 109/63
--- NOTE | 2018-06-21 13:21 | NUR ---
Patient complains of pain but is using her SUPERVISOR LENS GENERATING appropriately.
--- NOTE | 2018-06-21 18:10 | NUR ---
Received report from Silvana RN with Yanelis RN pt is awake and alert, on RA, call light and items of freq use within reach, at bedside
[2018-06-21] MEDS: proCHLORperazine 10 MG/2 ml inj IV PRN (18:11)
[2018-06-21 19:00] VITALS: BP 150/75
[2018-06-21] MEDS: cefepime inj. 0.5 GM in normal saline 100ml IV soln 100 ML IV SCH (20:49)
[2018-06-22] VITALS: BP 162/79
[2018-06-22] MEDS: proCHLORperazine 10 MG/2 ml inj IV PRN ×2 (00:09→07:23)
[2018-06-22] MEDS: metroNIDAZOLE-Flagyl 500mg/NS 100 ML IV SCH ×4 (00:10→23:21)
[2018-06-22] MEDS: HYDROmorphone/NS 1 mg/ml CADD 50 ML IV SCH ×12 (01:00→23:00)
--- NOTE | 2018-06-22 06:27 | NUR ---
Gave report to Silvana OSBORN pt is requesting compazine
[2018-06-22 06:36] LABS: ANION GAP 13 (8-16); BLOOD UREA NITROGEN 40 MG/DL (7-18); CHLORIDE 96 MMOL/L (99-107); POTASSIUM 4.3 MMOL/L (3.5-5.1); SODIUM 136 MMOL/L (135-145); TOTAL CARBON DIOXIDE 27.4 MMOL/L (24-32)
[2018-06-22 06:37] LABS: BUN/CREATININE RATIO 9.8 (6.6-38.0); CALCIUM 8.4 MG/DL (8.5-10.1); CREATININE 4.07 MG/DL (0.40-0.90); MAGNESIUM 2.2 MG/DL (1.5-2.4); PHOSPHORUS 7.7 MG/DL (2.3-4.5); eGFR 11 ML/MIN
--- NOTE | 2018-06-22 06:43 | NUR ---
Patient in room PA 351. I have received report from Ceci OSBORN and had the opportunity to ask questions and assume patient care.
[2018-06-22 06:45] LABS: GLUCOSE 101 MG/DL (70-104)
[2018-06-22 06:55] LABS: BASOPHILS % (AUTO) 0.2 % (0-1); EOSINOPHILS % (AUTO) 0.2 % (0-6); HEMATOCRIT 28.2 % (35.0-45.0); HEMOGLOBIN 8.9 g/dl (12.0-16.0); LYMPHOCYTES % (AUTO) 6.7 % (21-51); MEAN CORPUSCULAR HEMOGLOBIN 28.8 PG (27.0-31.0); MEAN CORPUSCULAR HGB CONC 31.6 g/dL (33.0-36.5); MEAN CORPUSCULAR VOLUME 91.2 FL (78-98); MEAN PLATELET VOLUME 9.9 FL (7.4-10.4); MONOCYTES # (AUTO) 0.9 X10'3 (0-0.9); MONOCYTES % (AUTO) 5.6 % (2-12); NEUTROPHILS # (AUTO) 13.3 X10'3 (1.8-7.7); NEUTROPHILS % (AUTO) 87.3 % (42-75); PLATELET COUNT 250 X10'3 (140-440); RED CELL DISTRIBUTION WIDTH 16.6 % (11.5-14.5); WHITE BLOOD COUNT 15.3 X10'3 (4.5-11.0)
[2018-06-22] MEDS: lactobacillus rhamnosus 10,000 MMU CELLS/CAPSULE PO SCH ×2 (07:22→20:57)
[2018-06-22] MEDS: LORazepam 0.5 MG tablet PO PRN (07:22)
[2018-06-22 07:29] LABS: NUCLEATED RED BLOOD CELLS 2 /100WBC (0-0); PLATELET ESTIMATE NORMAL; TOTAL CELLS COUNTED 100
[2018-06-22 07:30] LABS: POLYCHROMASIA FEW; SCHISTOCYTES FEW; TARGET CELLS 2+
[2018-06-22] MEDS: heparin, porcine 5000 units/ml vial SQ SCH ×2 (07:36→21:08)
[2018-06-22 08:00] VITALS: BP 167/76
[2018-06-22] MEDS: NUT.TX.IMP.RENAL FXN,LAC-REDUC (Nepro) 237 ML VANILLA PO SCH (08:00)
--- NOTE | 2018-06-22 09:20 | NUR ---
Phone call from . Update given, WV changed, Ativan given, Compazine given. No emesis this morning.
--- NOTE | 2018-06-22 10:40 | NUR ---
Patient still complains of nausea. I encouraged patient to ambulate because that can possibly help with her nausea and she states "I'm so nauseous that I don't want to ambulate"
[2018-06-22] MEDS ORDERED: LORazepam 2 mg/ml vial IV ONE (11:10)
[2018-06-22] MEDS ORDERED: proMETHazine 25mg tablet PO PRN (11:10)
[2018-06-22] MEDS ORDERED: proMETHazine 25mg tablet PO ONE (11:10)
[2018-06-22] MEDS ORDERED: LORazepam 0.5 MG tablet PO PRN (11:15)
[2018-06-22] MEDS ORDERED: scopolamine 1.5mg patch.TD72 TD ONE (12:25)
[2018-06-22 14:25] VITALS: BP 134/61
--- NOTE | 2018-06-22 15:37 | NUR ---
TPN consult: PPN to start today until central line can be placed for TPN Sunday per RN. Unable to meet pt needs w/ PPN given low macronutrient concentration without fluid overloading pt. Pt no PO past 7 days meeting TPN criteria s/p ex lap w/ resection for perforated colonic diverticulum and peritonitis. Pt LBM 4/4 w/ no bowel care ordered; would benefit from opiate antagonist since on CADD; RD d/w RN per MD approval. NG in place 500ml output yesterday in EMR; normal volume for gastric secretions. Non-E PPN/TPN recs below given pt on HD w/ acute renal failure but per pharmacy only PPN E bags in stock at this time. Will try to minimize optimal goal rate to avoid excessive electrolytes until central line placed and TPN can start. Will monitor for tolerance and signs of refeeding syndrome given prolonged span of inadequate nutrition. Rec: 1. PPN per MD via peripheral line using clinimix non-E (E until non-E in stock) 4.25/5 2L bag w/ 200ml 20% intralipids at 75ml/hr goal; to provide 1800ml fluid, 70g AA, 82g DEX(1.00mg/kg/min), and 609total non-protein kcals. Initiate at 30ml/hr and if tolerated Q12 advance to goal. 2. Once central line; TPN per MD using clinimix non-E 5/15 2L bag w/ 100ml 20% intralipids at 85ml/hr goal; to provide 2040ml fluid, 97g AA, 291g DEX(3.52mg/kg/min), and 1179 total non-protein kcals. Initiate at 30ml/hr and if tolerated Q12 advance to goal. 3. prealbumin q /, daily wts 4. GI promotility for post-op ileus per MD approval 5. monitor for signs of refeeding syndrome 6. once PO; advance diet per MD to low-residue Addendum: 06/22/18 at [address] Amended: Links added.
[2018-06-22] MEDS ORDERED: Dextrose 10%-water IV solution 1,000 ML IV PRN (15:43)
[2018-06-22] MEDS ORDERED: potassium Cl 20 mEq SR tablet PO PRN ×2 (15:45)
[2018-06-22] MEDS ORDERED: magnesium 4gm in 100ml NS 100 ML IV PRN (15:45)
[2018-06-22] MEDS ORDERED: potassium Cl 40MEQ/NS 500ml 500 ML IV PRN ×2 (15:45)
[2018-06-22] MEDS ORDERED: magnesium 2GM in 50ml NS 50 ML IV PRN (15:45)
[2018-06-22] MEDS ORDERED: magnesium Cl slow-release 64mg tablet PO PRN (15:45)
[2018-06-22] MEDS ORDERED: [UNRECOGNIZED DRUG - REMARK] IV SCH ×4 (17:00)
[2018-06-22 17:09] LABS: PREALBUMIN 15.4 MG/DL (19-36)
--- NOTE | 2018-06-22 17:17 | NUR ---
Student documentation: I have reviewed and agree with all interventions, assessments performed and documented by Diya RICHARDSON for [facility]. Student Medication Administration: For all medication-pass' during this shift time frame, all medication were reviewed, dispensed, administered and documented per hospital policy by Diya RICHARDSON of [facility].
--- NOTE | 2018-06-22 18:06 | NUR ---
Problems reprioritized. Patient report given, questions answered & plan of care reviewed with Chelo OSBORN. Addendum: 06/22/18 at 1807 by Silvana Barkley RN with Frida OSBORN... not Chelo OSBORN
[2018-06-22 19:00] VITALS: BP 149/65
[2018-06-22] MEDS: diatr meglu/diatrizoate 30ml oral sol.-(3 dose) bottle PO SCH (20:57)
[2018-06-22] MEDS: cefepime inj. 0.5 GM in normal saline 100ml IV soln 100 ML IV SCH (20:57)
[2018-06-22] MEDS: methylnaltrexone br 12mg/0.6ml inj***SubQ only SQ SCH (21:09)
[2018-06-22] MEDS ORDERED: diatr meglu/diatrizoate 30ml oral sol.-(3 dose) bottle PO SCH (21:10)
[2018-06-22] MEDS ORDERED: diatrozoate meglu/diatrozoate sod (37% iodine) 120ML oral solution PO ONE (23:00)
[2018-06-23] VITALS: BP 127/72
[2018-06-23] MEDS: HYDROmorphone/NS 1 mg/ml CADD 50 ML IV SCH ×11 (01:00→21:00)
[2018-06-23 05:34] LABS: ALANINE AMINOTRANSFERASE 17 U/L (12-78); ALBUMIN/GLOBULIN RATIO 0.5 (1.1-1.5); ALKALINE PHOSPHATASE 70 IU/L (46-116); ANION GAP 15 (8-16); ASPARTATE AMINO TRANSFERASE 26 U/L (10-37); BILIRUBIN,TOTAL 0.5 MG/DL (0.1-1.0); BLOOD UREA NITROGEN 71 MG/DL (7-18); BUN/CREATININE RATIO 11.5 (6.6-38.0); CALCIUM 7.6 MG/DL (8.5-10.1); CHLORIDE 95 MMOL/L (99-107); CREATININE 6.15 MG/DL (0.40-0.90); MAGNESIUM 2.3 MG/DL (1.5-2.4); PHOSPHORUS 8.3 MG/DL (2.3-4.5); POTASSIUM 4.2 MMOL/L (3.5-5.1); SODIUM 139 MMOL/L (135-145); TOTAL CARBON DIOXIDE 29.3 MMOL/L (24-32); eGFR 7 ML/MIN
[2018-06-23 05:35] LABS: BASOPHILS # (AUTO) 0.1 X10'3 (0-0.2); BASOPHILS % (AUTO) 0.3 % (0-1); EOSINOPHILS # (AUTO) 0.1 X10'3 (0-0.9); EOSINOPHILS % (AUTO) 0.4 % (0-6); HEMATOCRIT 25.5 % (35.0-45.0); HEMOGLOBIN 8.3 g/dl (12.0-16.0); LYMPHOCYTES # (AUTO) 0.9 X10'3 (1.1-4.8); LYMPHOCYTES % (AUTO) 5.1 % (21-51); MEAN CORPUSCULAR HEMOGLOBIN 28.9 PG (27.0-31.0); MEAN CORPUSCULAR HGB CONC 32.5 g/dL (33.0-36.5); MEAN CORPUSCULAR VOLUME 89.1 FL (78-98); MEAN PLATELET VOLUME 9.7 FL (7.4-10.4); MONOCYTES # (AUTO) 0.8 X10'3 (0-0.9); MONOCYTES % (AUTO) 4.6 % (2-12); NEUTROPHILS % (AUTO) 89.6 % (42-75); PLATELET COUNT 234 X10'3 (140-440); RED BLOOD COUNT 2.86 X10'6 (4.20-5.60); RED CELL DISTRIBUTION WIDTH 16.9 % (11.5-14.5); WHITE BLOOD COUNT 17.9 X10'3 (4.5-11.0)
[2018-06-23 05:38] LABS: GLUCOSE 110 MG/DL (70-104)
--- NOTE | 2018-06-23 06:09 | NUR ---
Problems reprioritized. Patient report given, questions answered & plan of care reviewed with Silvana OSBORN. Addendum: 06/23/18 at 0609 by Frida Miranda RN Amended: Links added.
--- NOTE | 2018-06-23 06:33 | NUR ---
Patient in room PA 351. I have received report from Frida OSBORN and had the opportunity to ask questions and assume patient care.
--- NOTE | 2018-06-23 07:02 | NUR ---
Pharmacy called about patients electrolytes increasing, no PPN formula without electrolytes available. Will discuss with MD concerning rate of formula to be ran, to increase or to keep at 30 ml/hr.
[2018-06-23] MEDS: diatr meglu/diatrizoate 30ml oral sol.-(3 dose) bottle PO SCH ×2 (07:05→09:54)
[2018-06-23 07:38] LABS: ANISOCYTOSIS 1+; NUCLEATED RED BLOOD CELLS 1 /100WBC (0-0); PLATELET ESTIMATE NORMAL; POLYCHROMASIA FEW; SCHISTOCYTES FEW; STOMATOCYTES 2+; TOTAL CELLS COUNTED 100
[2018-06-23 07:39] LABS: TOXIC GRANULATION 2+
[2018-06-23 08:00] VITALS: BP 118/65
[2018-06-23] MEDS: NUT.TX.IMP.RENAL FXN,LAC-REDUC (Nepro) 237 ML VANILLA PO SCH (08:00)
[2018-06-23] MEDS: K and/or MAG REPLACEMENT MC SCH (08:00)
--- NOTE | 2018-06-23 08:00 | NUR ---
Holding medications for NPO
--- NOTE | 2018-06-23 08:30 | NUR ---
Dr. Huang in to see patient. Order to take NG out if CT comes back with no blockage result. Addendum: 06/23/18 at 0831 by Silvana Barkley RN Amended: Links added.
[2018-06-23] MEDS ORDERED: iohexol 300mg/ml 100ml inj. ONE (09:52)
--- NOTE | 2018-06-23 10:03 | NUR ---
Patient off the unit to CT.
--- NOTE | 2018-06-23 10:04 | NUR ---
Abeba lovell on patient Addendum: 06/23/18 at 1004 by Diya MORALES Amended: Links added.
[2018-06-23] MEDS: metroNIDAZOLE-Flagyl 500mg/NS 100 ML IV SCH ×3 (11:42→23:46)
[2018-06-23] MEDS: heparin, porcine 5000 units/ml vial SQ SCH ×2 (11:43→22:00)
[2018-06-23] MEDS: lactobacillus rhamnosus 10,000 MMU CELLS/CAPSULE PO SCH ×2 (11:43→20:00)
--- NOTE | 2018-06-23 11:52 | NUR ---
Dr. Murray in with patient going over CT results.
[2018-06-23 12:00] VITALS: BP 163/73
--- NOTE | 2018-06-23 13:25 | NUR ---
F/u: Pt tolerating PPN at 30ml/hr but TG results 315. ROSINA collaborated w/ clinical pharmacist to reduce lipids to 100ml/bag from 200ml prior. Pt phos did increase but unable to take oral phos binders since NPO and receiving less than half the recommended daily phos for renal pts w/ current electrolyte formula ~800mg at this time. Addendum: 06/23/18 at [address] Amended: Links added. Addendum: 06/23/18 at [address] F/u: Pt tolerating PPN at 30ml/hr but TG results 315. ROSINA collaborated w/ clinical pharmacist to reduce lipids to 100ml/bag from 200ml prior. Pt phos did increase but unable to take oral phos binders since NPO and receiving less than half the recommended daily phos for renal pts w/ current electrolyte formula ~800mg at this time. Rec: 1. PPN per MD via peripheral line using clinimix non-E(E until non-E in stock) 4.25/5 2L bag w/ 100ml 20% intralipids at 75ml/hr goal; to provide 1800ml fluid, 73g AA, 86g DEX(1.05mg/kg/min), and 462 total non-protein kcals. Initiate at 30ml/hr and if tolerated Q12 advance to goal. 2. Once central line; TPN per MD using clinimix non-E 5/15 2L bag w/ 100ml 20% intralipids at 85ml/hr goal; to provide 2040ml fluid, 97g AA, 291g DEX(3.52mg/kg/min), and 1179 total non-protein kcals. Initiate at 30ml/hr and if tolerated Q12 advance to goal. 3. prealbumin q M/, daily wts 4. GI promotility for post-op ileus per MD approval 5. monitor for signs of refeeding syndrome 6. once PO; advance diet per MD to low-residue
[2018-06-23] MEDS: normal saline 1000ml 1,000 ML IV SCH (17:20)
--- NOTE | 2018-06-23 18:14 | NUR ---
Problems reprioritized. Patient report given, questions answered & plan of care reviewed with Mahnaz OSBORN.
[2018-06-23] MEDS ORDERED: normal saline 1000ml 100 ML IV PRN (19:00)
[2018-06-23 20:00] VITALS: BP 144/73
[2018-06-23] MEDS: cefepime inj. 0.5 GM in normal saline 100ml IV soln 100 ML IV SCH (21:58)
[2018-06-23] MEDS: [UNRECOGNIZED DRUG - REMARK] IV SCH ×4 (22:00)
[2018-06-24] VITALS: BP 144/75
[2018-06-24] MEDS: HYDROmorphone/NS 1 mg/ml CADD 50 ML IV SCH ×13 (00:11→23:00)
[2018-06-24] MEDS: [UNRECOGNIZED DRUG - REMARK] IV SCH ×4 (05:20)
[2018-06-24 06:38] LABS: CHOL/HDL RATIO 6.1 (0.00-4.99); CHOLESTEROL 79 MG/DL (0-200); HDL CHOLESTEROL 13 MG/DL (35-60); LDL CHOLESTEROL 30 MG/DL (50-100); MAGNESIUM 2.4 MG/DL (1.5-2.4); PHOSPHORUS 8.3 MG/DL (2.3-4.5); PREALBUMIN 15.1 MG/DL (19-36); TRIGLYCERIDES 300 MG/DL (20-135)
--- NOTE | 2018-06-24 06:39 | NUR ---
Problems reprioritized. Patient report given, questions answered & plan of care reviewed with Laney OSBORN.
--- NOTE | 2018-06-24 06:45 | NUR ---
Patient in room PA 351. I have received report from Mahnaz OSBORN and had the opportunity to ask questions and assume patient care.
[2018-06-24 07:00] VITALS: BP 143/70
[2018-06-24] MEDS: NUT.TX.IMP.RENAL FXN,LAC-REDUC (Nepro) 237 ML VANILLA PO SCH (08:00)
[2018-06-24] MEDS: heparin, porcine 5000 units/ml vial SQ SCH ×2 (08:00→20:01)
[2018-06-24] MEDS: K and/or MAG REPLACEMENT MC SCH (08:00)
[2018-06-24] MEDS: lactobacillus rhamnosus 10,000 MMU CELLS/CAPSULE PO SCH ×2 (08:03→20:00)
[2018-06-24] MEDS: metroNIDAZOLE-Flagyl 500mg/NS 100 ML IV SCH ×2 (08:03→16:23)
[2018-06-24] MEDS: methylnaltrexone br 12mg/0.6ml inj***SubQ only SQ SCH (08:12)
[2018-06-24 11:00] VITALS: BP 136/76
--- NOTE | 2018-06-24 18:40 | NUR ---
Patient in room PA 351. I have received report from Laney OSBORN and had the opportunity to ask questions and assume patient care. Pt sitting up in bed watching tv. WV @125 low cont and output marked, KEVIN at low continuous with 350cc in canister, FC in place and emptied, kevin emptied, PPN running @ [address] No signs of distress, will continue to monitor.
--- NOTE | 2018-06-24 18:44 | NUR ---
Problems reprioritized. Patient report given, questions answered & plan of care reviewed with dillon OSBORN.
[2018-06-24 20:00] VITALS: BP 135/67
[2018-06-24] MEDS: cefepime inj. 0.5 GM in normal saline 100ml IV soln 100 ML IV SCH (20:01)
[2018-06-25] VITALS: BP 144/66
[2018-06-25] MEDS: metroNIDAZOLE-Flagyl 500mg/NS 100 ML IV SCH ×3 (00:32→16:15)
[2018-06-25] MEDS: HYDROmorphone/NS 1 mg/ml CADD 50 ML IV SCH ×12 (01:00→23:00)
[2018-06-25 05:13] LABS: BASOPHILS % (AUTO) 0.3 % (0-1); EOSINOPHILS # (AUTO) 0.1 X10'3 (0-0.9); EOSINOPHILS % (AUTO) 0.5 % (0-6); HEMATOCRIT 23.4 % (35.0-45.0); HEMOGLOBIN 7.7 g/dl (12.0-16.0); LYMPHOCYTES # (AUTO) 0.7 X10'3 (1.1-4.8); LYMPHOCYTES % (AUTO) 4.8 % (21-51); MEAN CORPUSCULAR HEMOGLOBIN 29.8 PG (27.0-31.0); MEAN CORPUSCULAR HGB CONC 32.8 g/dL (33.0-36.5); MEAN CORPUSCULAR VOLUME 90.9 FL (78-98); MEAN PLATELET VOLUME 9.9 FL (7.4-10.4); MONOCYTES # (AUTO) 0.8 X10'3 (0-0.9); MONOCYTES % (AUTO) 5.4 % (2-12); NEUTROPHILS # (AUTO) 13.2 X10'3 (1.8-7.7); PLATELET COUNT 224 X10'3 (140-440); RED BLOOD COUNT 2.58 X10'6 (4.20-5.60); RED CELL DISTRIBUTION WIDTH 16.6 % (11.5-14.5); WHITE BLOOD COUNT 14.8 X10'3 (4.5-11.0)
[2018-06-25] MEDS: [UNRECOGNIZED DRUG - REMARK] IV SCH ×4 (05:14)
[2018-06-25 05:40] LABS: ALANINE AMINOTRANSFERASE 14 U/L (12-78); ALBUMIN 1.7 G/DL (3.4-5.0); ALBUMIN/GLOBULIN RATIO 0.4 (1.1-1.5); ALKALINE PHOSPHATASE 64 IU/L (46-116); ANION GAP 6 (8-16); ASPARTATE AMINO TRANSFERASE 25 U/L (10-37); BILIRUBIN,TOTAL 0.4 MG/DL (0.1-1.0); BLOOD UREA NITROGEN 51 MG/DL (7-18); BUN/CREATININE RATIO 11.9 (6.6-38.0); CALCIUM 7.8 MG/DL (8.5-10.1); CHLORIDE 96 MMOL/L (99-107); CREATININE 4.28 MG/DL (0.40-0.90); GLUCOSE 110 MG/DL (70-104); MAGNESIUM 2.2 MG/DL (1.5-2.4); PHOSPHORUS 5.8 MG/DL (2.3-4.5); POTASSIUM 3.5 MMOL/L (3.5-5.1); SODIUM 139 MMOL/L (135-145); TOTAL PROTEIN 5.7 G/DL (6.4-8.2); eGFR 10 ML/MIN
--- NOTE | 2018-06-25 06:35 | NUR ---
Problems reprioritized. Patient report given, questions answered & plan of care reviewed with Laney OSBORN.
--- NOTE | 2018-06-25 06:38 | NUR ---
Patient in room PA 351. I have received report from Mahnaz OSBORN and had the opportunity to ask questions and assume patient care.
[2018-06-25 07:00] VITALS: BP 148/62
[2018-06-25] MEDS: lactobacillus rhamnosus 10,000 MMU CELLS/CAPSULE PO SCH ×2 (07:33→20:00)
[2018-06-25] MEDS: heparin, porcine 5000 units/ml vial SQ SCH ×2 (07:34→20:37)
[2018-06-25] MEDS: NUT.TX.IMP.RENAL FXN,LAC-REDUC (Nepro) 237 ML VANILLA PO SCH (07:42)
[2018-06-25] MEDS: K and/or MAG REPLACEMENT MC SCH (08:00)
[2018-06-25 11:00] VITALS: BP 141/68
--- NOTE | 2018-06-25 14:55 | NUR ---
patient seen by Dr lee and Dr Henson. NG clamped if patient ok without distention and able to tolerate, can DC and give patient clear lqd diet. Patient up to chair, only able to sit for 15mins. will continue to monitor.
[2018-06-25] MEDS: normal saline 1000ml 1,000 ML IV SCH (17:20)
--- NOTE | 2018-06-25 18:42 | NUR ---
reassessment: Pt tolerating PPN at goal w/ post-op ileus; per RN not to have central line placed since kidney pt. RN reports per surgeon final 24 hours of PPN and NG now clamped; if tolerates will advance to clear liquids. Phos down from prior on E PPN since no non-E in stock. Will continue to monitor. Rec: 1. PPN per MD via peripheral line using clinimix non-E(E until non-E in stock) 4.25/5 2L bag w/ 100ml 20% intralipids at 75ml/hr goal; to provide 1800ml fluid, 73g AA, 86g DEX(1.05mg/kg/min), and 462 total non-protein kcals. Initiate at 30ml/hr and if tolerated Q12 advance to goal. 2. prealbumin q /, daily wts 3. GI promotility for post-op ileus per MD approval 4. monitor for signs of refeeding syndrome 5. once PO; advance diet per MD to low-residue Addendum: 06/25/18 at [address] Amended: Links added.
--- NOTE | 2018-06-25 18:42 | NUR ---
Problems reprioritized. Patient report given, questions answered & plan of care reviewed with MARYJANE OSBORN.
--- NOTE | 2018-06-25 19:05 | NUR ---
Patient in room PA 351. I have received report from Laney OSBORN and had the opportunity to ask questions and assume patient care. Pt resting comfortably with tv on. No signs of distress, will continue to monitor.
[2018-06-25 20:00] VITALS: BP 150/72
[2018-06-25] MEDS: cefepime inj. 0.5 GM in normal saline 100ml IV soln 100 ML IV SCH (20:38)
[2018-06-26] MEDS: metroNIDAZOLE-Flagyl 500mg/NS 100 ML IV SCH ×2 (00:13→07:31)
[2018-06-26 00:44] VITALS: BP 149/67
[2018-06-26] MEDS: HYDROmorphone/NS 1 mg/ml CADD 50 ML IV SCH ×12 (01:00→23:00)
[2018-06-26 05:00] LABS: BASOPHILS # (AUTO) 0.1 X10'3 (0-0.2); BASOPHILS % (AUTO) 0.4 % (0-1); EOSINOPHILS # (AUTO) 0.1 X10'3 (0-0.9); EOSINOPHILS % (AUTO) 0.6 % (0-6); HEMATOCRIT 23.1 % (35.0-45.0); HEMOGLOBIN 7.6 g/dl (12.0-16.0); LYMPHOCYTES # (AUTO) 0.7 X10'3 (1.1-4.8); LYMPHOCYTES % (AUTO) 4.4 % (21-51); MEAN CORPUSCULAR HEMOGLOBIN 29.4 PG (27.0-31.0); MEAN CORPUSCULAR HGB CONC 32.8 g/dL (33.0-36.5); MEAN CORPUSCULAR VOLUME 89.6 FL (78-98); MEAN PLATELET VOLUME 9.8 FL (7.4-10.4); MONOCYTES # (AUTO) 1.1 X10'3 (0-0.9); NEUTROPHILS # (AUTO) 13.4 X10'3 (1.8-7.7); NEUTROPHILS % (AUTO) 87.6 % (42-75); PLATELET COUNT 235 X10'3 (140-440); RED BLOOD COUNT 2.58 X10'6 (4.20-5.60); WHITE BLOOD COUNT 15.3 X10'3 (4.5-11.0)
[2018-06-26 05:14] LABS: ALANINE AMINOTRANSFERASE 13 U/L (12-78); ALBUMIN 1.7 G/DL (3.4-5.0); ALBUMIN/GLOBULIN RATIO 0.4 (1.1-1.5); ALKALINE PHOSPHATASE 59 IU/L (46-116); ANION GAP 7 (8-16); ASPARTATE AMINO TRANSFERASE 26 U/L (10-37); BILIRUBIN,TOTAL 0.4 MG/DL (0.1-1.0); BLOOD UREA NITROGEN 76 MG/DL (7-18); BUN/CREATININE RATIO 13.3 (6.6-38.0); CALCIUM 7.8 MG/DL (8.5-10.1); CHLORIDE 93 MMOL/L (99-107); CREATININE 5.71 MG/DL (0.40-0.90); GLUCOSE 102 MG/DL (70-104); MAGNESIUM 2.4 MG/DL (1.5-2.4); POTASSIUM 3.9 MMOL/L (3.5-5.1); SODIUM 138 MMOL/L (135-145); TOTAL PROTEIN 5.7 G/DL (6.4-8.2); eGFR 7 ML/MIN
[2018-06-26] MEDS: [UNRECOGNIZED DRUG - REMARK] IV SCH ×4 (06:18)
--- NOTE | 2018-06-26 06:31 | NUR ---
Problems reprioritized. Patient report given, questions answered & plan of care reviewed with Laney OSBORN.
--- NOTE | 2018-06-26 06:48 | NUR ---
Patient in room PA 351. I have received report from Mahnaz OSBORN and had the opportunity to ask questions and assume patient care.
[2018-06-26 07:00] VITALS: BP 160/78
[2018-06-26] MEDS: methylnaltrexone br 12mg/0.6ml inj***SubQ only SQ SCH (07:31)
[2018-06-26] MEDS: lactobacillus rhamnosus 10,000 MMU CELLS/CAPSULE PO SCH ×2 (08:00→20:26)
[2018-06-26] MEDS: NUT.TX.IMP.RENAL FXN,LAC-REDUC (Nepro) 237 ML VANILLA PO SCH (08:00)
[2018-06-26] MEDS: K and/or MAG REPLACEMENT MC SCH (08:00)
[2018-06-26] MEDS: heparin, porcine 5000 units/ml vial SQ SCH ×2 (08:00→20:00)
--- NOTE | 2018-06-26 16:51 | NUR ---
Patient seen today by Dr Emery. Patient encouraged to ambulate. NG removed. patient commenced on clear liquids. Dietary consult called. PPKandice LOUISE. Wound vac changed by wound team. patient requiring lots of care and reassurance most of shift. will continue to monitor.
[2018-06-26] MEDS ORDERED: epoetin 20,000 units/ml inj IV ONE (17:40)
[2018-06-26] MEDS ORDERED: heparin 1,000unit/ml 10ml vial 10 ML IV ONE (17:40)
[2018-06-26] MEDS ORDERED: normal saline 1000ml 250 ML IV PRN (17:40)
[2018-06-26] MEDS ORDERED: heparin 1,000 units/ml 10ml inj HE ONE ×2 (17:45)
--- NOTE | 2018-06-26 18:52 | NUR ---
Problems reprioritized. Patient report given, questions answered & plan of care reviewed with Ale Jackson RN.
--- NOTE | 2018-06-26 19:03 | NUR ---
Patient in room PA 351. I have received report from IRENA Davison and had the opportunity to ask questions and assume patient care. Addendum: 06/26/18 at 1903 by Magali Hernández RN Amended: Links added.
--- NOTE | 2018-06-26 19:10 | NUR ---
06/26 Consult informing of PPN being d/c'ed received. D/w RN who states NG tube has been removed, PPN has been d/c'ed, and pt receiving D10. D/w RN to order clear liquid diet and d/c current PPN diet order. Pt would benefit from Ensure Clear while on clear liquid diet to provide some protein, d/w MD and dietary. Ensure clear is low in Phos and K. Pt continues with HD per MD notes. Per MD pt passing flatus with no BM since 06/13. RN reports pt receiving routine Relistor. Per med list pt with MoM PRN last given 06/08. Pt seen at bedside endorses a low appetite. RD encouraged PO intake and discussed ONS. Pt states she is lactose intolerant to some dairy products and requests no milk to drink but okay with almond milk if diet gets advanced to allow such items, d/w dietary. Will continue to follow. 06/25 reassessment: Pt tolerating PPN at goal w/ post-op ileus; per RN not to have central line placed since kidney pt. RN reports per surgeon final 24 hours of PPN and NG now clamped; if tolerates will advance to clear liquids. Phos down from prior on E PPN since no non-E in stock. Will continue to monitor. Rec: 1. Continue clear liquid diet with advancement to low-residue as medically indicated 2. Ensure clear TID 3. Wt per rx 4. GI promotility for post-op ileus per approval Addendum: 06/26/18 at [address] Amended: Links added.
[2018-06-26 20:00] VITALS: BP 148/66
--- NOTE | 2018-06-26 20:00 | NUR ---
New IV inserted at 5 rt. wrist
[2018-06-26] MEDS: ondansetron/PF 4mg/2ml inj IV PRN (20:26)
[2018-06-26] MEDS: proCHLORperazine 10 MG/2 ml inj IV PRN (22:13)
[2018-06-27] VITALS: BP 111/58
[2018-06-27] MEDS: HYDROmorphone/NS 1 mg/ml CADD 50 ML IV SCH ×12 (01:00→23:00)
[2018-06-27 05:36] LABS: BASOPHILS % (AUTO) 0.2 % (0-1); EOSINOPHILS # (AUTO) 0.1 X10'3 (0-0.9); EOSINOPHILS % (AUTO) 0.5 % (0-6); HEMATOCRIT 25.6 % (35.0-45.0); HEMOGLOBIN 8.3 g/dl (12.0-16.0); LYMPHOCYTES # (AUTO) 0.6 X10'3 (1.1-4.8); LYMPHOCYTES % (AUTO) 4.2 % (21-51); MEAN CORPUSCULAR HEMOGLOBIN 29.4 PG (27.0-31.0); MEAN CORPUSCULAR HGB CONC 32.4 g/dL (33.0-36.5); MEAN CORPUSCULAR VOLUME 90.8 FL (78-98); MEAN PLATELET VOLUME 9.8 FL (7.4-10.4); MONOCYTES # (AUTO) 1.1 X10'3 (0-0.9); MONOCYTES % (AUTO) 7.1 % (2-12); NEUTROPHILS # (AUTO) 13.4 X10'3 (1.8-7.7); PLATELET COUNT 288 X10'3 (140-440); RED BLOOD COUNT 2.82 X10'6 (4.20-5.60); RED CELL DISTRIBUTION WIDTH 17.7 % (11.5-14.5); WHITE BLOOD COUNT 15.2 X10'3 (4.5-11.0)
--- NOTE | 2018-06-27 05:51 | NUR ---
pt had dialysis last night and took out 1.8L, had episode of nausea no vomiting noted, tolerated clear liquid diet. informed pt that she needs to walk after dialysis educate importance but she refused and c/o weakness and rather rest. less painful and still on CADD Addendum: 06/27/18 at 0553 by Magali Hernández RN Amended: Links added.
[2018-06-27] MEDS: proCHLORperazine 10 MG/2 ml inj IV PRN ×2 (06:05→21:23)
[2018-06-27 06:15] LABS: ALANINE AMINOTRANSFERASE 16 U/L (12-78); ALBUMIN 1.8 G/DL (3.4-5.0); ALBUMIN/GLOBULIN RATIO 0.4 (1.1-1.5); ALKALINE PHOSPHATASE 71 IU/L (46-116); ANION GAP 5 (8-16); ASPARTATE AMINO TRANSFERASE 31 U/L (10-37); BILIRUBIN,TOTAL 0.4 MG/DL (0.1-1.0); BLOOD UREA NITROGEN 25 MG/DL (7-18); BUN/CREATININE RATIO 8.5 (6.6-38.0); CALCIUM 8.3 MG/DL (8.5-10.1); CHLORIDE 98 MMOL/L (99-107); CREATININE 2.94 MG/DL (0.40-0.90); GLUCOSE 101 MG/DL (70-104); POTASSIUM 4.5 MMOL/L (3.5-5.1); PREALBUMIN 18.5 MG/DL (19-36); SODIUM 135 MMOL/L (135-145); TOTAL CARBON DIOXIDE 31.7 MMOL/L (24-32); TOTAL PROTEIN 6.3 G/DL (6.4-8.2); TRIGLYCERIDES 162 MG/DL (20-135); eGFR 16 ML/MIN
--- NOTE | 2018-06-27 06:38 | NUR ---
Problems reprioritized. Patient report given, questions answered & plan of care reviewed with IRENA Yuan. Samuel'l info given to RN that patient had greenish liquid 150ml noted in her vomit bag around 6:05am, compazine given Addendum: 06/27/18 at 0640 by Magali Hernández RN Amended: Links added.
[2018-06-27 07:00] VITALS: BP 123/63
[2018-06-27] MEDS: K and/or MAG REPLACEMENT MC SCH (07:06)
[2018-06-27] MEDS: NUT.TX.IMP.RENAL FXN,LAC-REDUC (Nepro) 237 ML VANILLA PO SCH (08:00)
[2018-06-27] MEDS: lactobacillus rhamnosus 10,000 MMU CELLS/CAPSULE PO SCH ×2 (08:00→20:48)
[2018-06-27] MEDS: NUT.TX.IMPAIRED DIGEST FXN (Ensure Clear) 237 ML PO SCH ×3 (08:00→18:00)
[2018-06-27] MEDS: heparin, porcine 5000 units/ml vial SQ SCH ×2 (08:00→20:48)
[2018-06-27] MEDS: ondansetron/PF 4mg/2ml inj IV PRN (10:49)
[2018-06-27 11:00] VITALS: BP 137/71
--- NOTE | 2018-06-27 12:16 | NUR ---
PER DR ALMANZAR- TERI TO PLACE PICC FOR TPN
[2018-06-27] MEDS ORDERED: fat emulsion IV 181.82 ML, MVI, adult No.4 with vit. K 4.55 ML, Trace element-5 inj. 0.... IV SCH ×4 (15:11)
[2018-06-27] MEDS ORDERED: Dextrose 10%-water IV solution 1,000 ML IV PRN (15:11)
--- NOTE | 2018-06-27 15:38 | NUR ---
reassessment: Pt now has PICC line placed and to receive TPN per pharmacy; will not be receiving Clinimix; instead custom w/ only Mg/Ca added for electrolytes per clinical pharmacist. Previous TPN recs as below to be followed per pharmacy to make 2L bag. Will monitor for TPN tolerance and signs of refeeding syndrome. 06/26 Consult informing of PPN being d/c'ed received. D/w RN who states NG tube has been removed, PPN has been d/c'ed, and pt receiving D10. D/w RN to order clear liquid diet and d/c current PPN diet order. Pt would benefit from Ensure Clear while on clear liquid diet to provide some protein, d/w MD and dietary. Ensure clear is low in Phos and K. Pt continues with HD per MD notes. Per MD pt passing flatus with no BM since 06/13. RN reports pt receiving routine Relistor. Per med list pt with MoM PRN last given 06/08. Pt seen at bedside endorses a low appetite. RD encouraged PO intake and discussed ONS. Pt states she is lactose intolerant to some dairy products and requests no milk to drink but okay with almond milk if diet gets advanced to allow such items, d/w dietary. Will continue to follow. 06/25 reassessment: Pt tolerating PPN at goal w/ post-op ileus; per RN not to have central line placed since kidney pt. RN reports per surgeon final 24 hours of PPN and NG now clamped; if tolerates will advance to clear liquids. Phos down from prior on E PPN since no non-E in stock. Will continue to monitor. Rec: 1. Custom non-E TPN via central line w/ Mg/Ca per pricing associate to contain 100ml 20% intralipids per 2L bag at 85ml/hr goal; to provide 2040ml fluid, 97g AA,291g DEX(3.52mg/kg/min), and 1179 total non-protein kcals. Initiate at 30ml/hr and if tolerated Q12 advance to goal. 3. prealbumin q M/, daily wts 4. GI promotility for post-op ileus per MD approval 5. monitor for signs of refeeding syndrome 6. advance diet per MD to low-residue Addendum: 06/27/18 at [address] Amended: Links added.
[2018-06-27] MEDS: CADD PCA waste documentation MC PRN (16:12)
[2018-06-27 16:14] LABS: ALANINE AMINOTRANSFERASE 18 U/L (12-78); ALBUMIN 1.8 G/DL (3.4-5.0); ALBUMIN/GLOBULIN RATIO 0.4 (1.1-1.5); ALKALINE PHOSPHATASE 74 IU/L (46-116); ANION GAP 5 (8-16); ASPARTATE AMINO TRANSFERASE 27 U/L (10-37); BILIRUBIN,TOTAL 0.5 MG/DL (0.1-1.0); BLOOD UREA NITROGEN 36 MG/DL (7-18); BUN/CREATININE RATIO 8.5 (6.6-38.0); CALCIUM 8.2 MG/DL (8.5-10.1); CHLORIDE 97 MMOL/L (99-107); CREATININE 4.25 MG/DL (0.40-0.90); GLUCOSE 105 MG/DL (70-104); MAGNESIUM 1.9 MG/DL (1.5-2.4); PHOSPHORUS 5.9 MG/DL (2.3-4.5); POTASSIUM 5.5 MMOL/L (3.5-5.1); PREALBUMIN 18.5 MG/DL (19-36); SODIUM 134 MMOL/L (135-145); TOTAL CARBON DIOXIDE 31.8 MMOL/L (24-32); TOTAL PROTEIN 6.3 G/DL (6.4-8.2); TRIGLYCERIDES 158 MG/DL (20-135); eGFR 10 ML/MIN
[2018-06-27] MEDS: normal saline 1000ml 1,000 ML IV SCH (17:20)
[2018-06-27] MEDS: fat emulsion IV 100 ML, MVI, adult No.4 with vit. K 10 ML, Trace element-5 inj. 1 ML in... IV SCH ×4 (17:33)
--- NOTE | 2018-06-27 18:22 | NUR ---
Problems reprioritized. Patient report given, questions answered & plan of care reviewed with nathen deluna rn.
--- NOTE | 2018-06-27 18:34 | NUR ---
Patient in room PA 351. I have received report from IRENA Yuan and had the opportunity to ask questions and assume patient care. Addendum: 06/27/18 at 1834 by Magali Hernández RN Amended: Links added.
[2018-06-27 19:00] VITALS: BP 120/65
[2018-06-28] VITALS: BP 104/57
[2018-06-28] MEDS: HYDROmorphone/NS 1 mg/ml CADD 50 ML IV SCH ×4 (01:00→07:00)
[2018-06-28 04:46] LABS: BASOPHILS % (AUTO) 0.3 % (0-1); EOSINOPHILS # (AUTO) 0.1 X10'3 (0-0.9); EOSINOPHILS % (AUTO) 0.5 % (0-6); HEMATOCRIT 22.7 % (35.0-45.0); HEMOGLOBIN 7.3 g/dl (12.0-16.0); LYMPHOCYTES # (AUTO) 0.8 X10'3 (1.1-4.8); LYMPHOCYTES % (AUTO) 4.3 % (21-51); MEAN CORPUSCULAR HEMOGLOBIN 29.4 PG (27.0-31.0); MEAN CORPUSCULAR HGB CONC 32.1 g/dL (33.0-36.5); MEAN CORPUSCULAR VOLUME 91.5 FL (78-98); MEAN PLATELET VOLUME 9.7 FL (7.4-10.4); MONOCYTES # (AUTO) 1.1 X10'3 (0-0.9); MONOCYTES % (AUTO) 6.2 % (2-12); NEUTROPHILS # (AUTO) 15.8 X10'3 (1.8-7.7); NEUTROPHILS % (AUTO) 88.7 % (42-75); PLATELET COUNT 283 X10'3 (140-440); RED BLOOD COUNT 2.48 X10'6 (4.20-5.60); RED CELL DISTRIBUTION WIDTH 17.4 % (11.5-14.5); WHITE BLOOD COUNT 17.8 X10'3 (4.5-11.0)
[2018-06-28 04:57] LABS: ALANINE AMINOTRANSFERASE 14 U/L (12-78); ALBUMIN 1.6 G/DL (3.4-5.0); ALBUMIN/GLOBULIN RATIO 0.4 (1.1-1.5); ALKALINE PHOSPHATASE 73 IU/L (46-116); ANION GAP 8 (8-16); ASPARTATE AMINO TRANSFERASE 25 U/L (10-37); BILIRUBIN,TOTAL 0.5 MG/DL (0.1-1.0); BLOOD UREA NITROGEN 49 MG/DL (7-18); BUN/CREATININE RATIO 9.9 (6.6-38.0); CALCIUM 7.9 MG/DL (8.5-10.1); CHLORIDE 97 MMOL/L (99-107); CREATININE 4.95 MG/DL (0.40-0.90); GLUCOSE 96 MG/DL (70-104); PHOSPHORUS 5.5 MG/DL (2.3-4.5); POTASSIUM 4.8 MMOL/L (3.5-5.1); SODIUM 134 MMOL/L (135-145); TOTAL CARBON DIOXIDE 29.4 MMOL/L (24-32); TOTAL PROTEIN 5.9 G/DL (6.4-8.2); eGFR 9 ML/MIN
[2018-06-28] MEDS: fat emulsion IV 100 ML, MVI, adult No.4 with vit. K 10 ML, Trace element-5 inj. 1 ML in... IV SCH ×4 (05:58)
--- NOTE | 2018-06-28 06:32 | NUR ---
Problems reprioritized. Patient report given, questions answered & plan of care reviewed with IRENA Yuan. Addendum: 06/28/18 at 0632 by Magali Hernández RN Amended: Links added.
[2018-06-28 07:00] VITALS: BP 136/68
[2018-06-28] MEDS: NUT.TX.IMPAIRED DIGEST FXN (Ensure Clear) 237 ML PO SCH ×3 (07:34→18:04)
[2018-06-28] MEDS: NUT.TX.IMP.RENAL FXN,LAC-REDUC (Nepro) 237 ML VANILLA PO SCH (07:34)
[2018-06-28] MEDS: heparin, porcine 5000 units/ml vial SQ SCH ×2 (07:35→19:51)
[2018-06-28] MEDS: K and/or MAG REPLACEMENT MC SCH (07:35)
[2018-06-28] MEDS: lactobacillus rhamnosus 10,000 MMU CELLS/CAPSULE PO SCH ×2 (07:36→19:51)
[2018-06-28] MEDS: methylnaltrexone br 12mg/0.6ml inj***SubQ only SQ SCH (07:40)
[2018-06-28] MEDS ORDERED: normal saline 1000ml 250 ML IV PRN (08:00)
[2018-06-28] MEDS ORDERED: heparin 1,000unit/ml 10ml vial 10 ML IV ONE (08:00)
[2018-06-28] MEDS ORDERED: heparin 1,000 units/ml 10ml inj HE ONE ×2 (08:00)
[2018-06-28] MEDS: epoetin 20,000 units/ml inj IV ONE ×2 (09:55→09:57)
[2018-06-28] MEDS: HYDROcodone/acetaminophen 10/325mg tab PO PRN ×3 (10:10→22:41)
[2018-06-28] MEDS: CADD PCA waste documentation MC PRN (11:02)
[2018-06-28 12:00] VITALS: BP 117/50
[2018-06-28] MEDS: piperacillin/tazo 3.375gm/50ml 50 ML IV SCH ×2 (13:27→19:52)
--- NOTE | 2018-06-28 14:30 | NUR ---
Reassessment: Per pharmacy we are unable to do custom TPN d/t lack of amino acids. Pt currently receiving Clinimix Non-E at goal of 85 mL/hr providing 1573 kcal, 97 g AA, and 291 g dextrose with dextrose load of 3.55 mg/kg/min meeting 100% of patient's estimated nutrient needs. Phos remains elevated however appears to be trending towards normal limits. Pt finally with BM 06/27 after no BM x 14 days. Will continue to follow. Rec: 1. 3:1 Clinimix non-E / TPN with 100 mL 20% intralipids 2L bag via PICC at 85 ml/hr goal; to provide 2040ml fluid, 1573 kcal, 97 g AA, 291 g DEX (3.55mg/kg/min), and 1179 total non-protein kcals. Initiate at 30ml/hr and if tolerated Q12 advance to goal. 2. prealbumin q M/, daily wts 3. Continue GI promotility for post-op ileus per MD approval 4. monitor for signs of refeeding syndrome 5. advance diet per MD to low-residue Addendum: 06/28/18 at [address] Amended: Links added.
--- NOTE | 2018-06-28 18:16 | NUR ---
Problems reprioritized. Patient report given, questions answered & plan of care reviewed with nathen deluna rn.
--- NOTE | 2018-06-28 18:20 | NUR ---
Patient in room PA 351. I have received report from IRENA Yuan and had the opportunity to ask questions and assume patient care. Addendum: 06/28/18 at 1820 by Magali Hernández RN Amended: Links added.
[2018-06-28 20:00] VITALS: BP 94/42
[2018-06-28] MEDS: metoclopramide 10mg tablet PO PRN ×2 (21:05)
[2018-06-29 00:48] VITALS: BP 98/52
[2018-06-29] MEDS: fat emulsion IV 100 ML, MVI, adult No.4 with vit. K 10 ML, Trace element-5 inj. 1 ML in... IV SCH ×8 (02:38→17:52)
[2018-06-29] MEDS: HYDROcodone/acetaminophen 10/325mg tab PO PRN ×2 (02:43→10:31)
[2018-06-29] MEDS ORDERED: HYDROmorphone inj. 0.5 MG/0.5 ML DISP.SYRIN IV PRN (03:50)
[2018-06-29] MEDS: proCHLORperazine 10 MG/2 ml inj IV PRN (04:15)
--- NOTE | 2018-06-29 04:19 | NUR ---
patient had another emesis of bile greenish products and twice at this shift. taking norco for pain but c/o ineffectiveness, bowel stil distended, spoke to Dr. Maher and ordered 0.5mg IV dilaudid which was given and compazine with relief. Pt placed on NPO as well. continue TPN.
[2018-06-29 05:17] LABS: BASOPHILS % (AUTO) 0.2 % (0-1); EOSINOPHILS # (AUTO) 0.1 X10'3 (0-0.9); EOSINOPHILS % (AUTO) 0.3 % (0-6); HEMATOCRIT 23.1 % (35.0-45.0); HEMOGLOBIN 7.4 g/dl (12.0-16.0); LYMPHOCYTES # (AUTO) 0.6 X10'3 (1.1-4.8); LYMPHOCYTES % (AUTO) 3.1 % (21-51); MEAN CORPUSCULAR HEMOGLOBIN 29.5 PG (27.0-31.0); MEAN CORPUSCULAR VOLUME 92.2 FL (78-98); MONOCYTES # (AUTO) 1.1 X10'3 (0-0.9); MONOCYTES % (AUTO) 6.1 % (2-12); NEUTROPHILS % (AUTO) 90.3 % (42-75); PLATELET COUNT 288 X10'3 (140-440); RED BLOOD COUNT 2.51 X10'6 (4.20-5.60); RED CELL DISTRIBUTION WIDTH 17.1 % (11.5-14.5); WHITE BLOOD COUNT 17.8 X10'3 (4.5-11.0)
[2018-06-29 05:38] LABS: ALANINE AMINOTRANSFERASE 16 U/L (12-78); ALBUMIN 1.6 G/DL (3.4-5.0); ALBUMIN/GLOBULIN RATIO 0.3 (1.1-1.5); ALKALINE PHOSPHATASE 73 IU/L (46-116); ANION GAP 10 (8-16); ASPARTATE AMINO TRANSFERASE 21 U/L (10-37); BILIRUBIN,TOTAL 0.4 MG/DL (0.1-1.0); BLOOD UREA NITROGEN 34 MG/DL (7-18); BUN/CREATININE RATIO 10.1 (6.6-38.0); CALCIUM 8.3 MG/DL (8.5-10.1); CHLORIDE 95 MMOL/L (99-107); CREATININE 3.35 MG/DL (0.40-0.90); GLUCOSE 203 MG/DL (70-104); MAGNESIUM 1.7 MG/DL (1.5-2.4); PHOSPHORUS 2.1 MG/DL (2.3-4.5); POTASSIUM 3.4 MMOL/L (3.5-5.1); SODIUM 132 MMOL/L (135-145); TOTAL CARBON DIOXIDE 27.5 MMOL/L (24-32); TOTAL PROTEIN 6.2 G/DL (6.4-8.2); eGFR 14 ML/MIN
[2018-06-29 06:15] LABS: ANISOCYTOSIS 1+; HYPOCHROMASIA 1+; PLATELET ESTIMATE NORMAL; POLYCHROMASIA FEW; STOMATOCYTES 2+
--- NOTE | 2018-06-29 06:32 | NUR ---
Problems reprioritized. Patient report given, questions answered & plan of care reviewed with IRENA Covington. Addendum: 06/29/18 at 0632 by Magali Hernández RN Amended: Links added.
[2018-06-29 07:13] VITALS: BP 157/81
[2018-06-29] MEDS: NUT.TX.IMPAIRED DIGEST FXN (Ensure Clear) 237 ML PO SCH ×3 (07:39→18:28)
[2018-06-29] MEDS: NUT.TX.IMP.RENAL FXN,LAC-REDUC (Nepro) 237 ML VANILLA PO SCH (07:39)
[2018-06-29] MEDS: lactobacillus rhamnosus 10,000 MMU CELLS/CAPSULE PO SCH ×2 (07:39→20:00)
[2018-06-29] MEDS: K and/or MAG REPLACEMENT MC SCH (08:00)
[2018-06-29] MEDS: piperacillin/tazo 3.375gm/50ml 50 ML IV SCH (08:42)
[2018-06-29] MEDS: heparin, porcine 5000 units/ml vial SQ SCH ×2 (08:45→20:35)
[2018-06-29 11:00] VITALS: BP 145/78
[2018-06-29] MEDS ORDERED: glucagon, human recombinant 1mg kit SUBCUT PRN (11:45)
[2018-06-29] MEDS ORDERED: MESSAGE TO PHARMACY PO ONE (11:45)
[2018-06-29] MEDS ORDERED: dextrose ORAL solution 15 GM/59 ML bottle PO PRN ×2 (11:45)
[2018-06-29] MEDS ORDERED: dextrose 50%-water 50ml dispensing syringe IV PRN ×2 (11:45)
--- NOTE | 2018-06-29 11:45 | NUR ---
DR BENJAMIN AWARE OF ONE TIME BLOOD PRESSURE OF 204/101. SHE SAYS THIS IS NOT HER NORMAL AND IT SEEMS TO BE A ONE TIME ISSUE, CONTINUE TO MONITOR. WILL RECHECK SHORTLY AND IN 4 HR.
[2018-06-29] MEDS ORDERED: HYDROmorphone/NS 1 mg/ml CADD 50 ML IV SCH (12:15)
[2018-06-29] MEDS: sertraline 25mg tablet PO SCH (12:44)
[2018-06-29] MEDS: CADD PCA waste documentation MC PRN (13:33)
[2018-06-29] MEDS ORDERED: MAG PROTOCOL PO PRN (14:05)
[2018-06-29] MEDS ORDERED: potassium chloride 10mEq ER tablet PO PRN (14:05)
[2018-06-29] MEDS ORDERED: SODIUM CHLORIDE IV PRN (14:05)
[2018-06-29] MEDS ORDERED: magnesium 4gm in 100ml NS 100 ML IV PRN (14:05)
[2018-06-29] MEDS ORDERED: magnesium 2 GM in 50ml IV PRN (14:05)
[2018-06-29] MEDS ORDERED: potassium Cl 20 mEq SR tablet PO PRN (14:05)
[2018-06-29] MEDS ORDERED: POTASSIUM CHLORIDE 20 MEQ IV PRN (14:05)
[2018-06-29] MEDS: insulin regular, human vial - multi-dose SQ SCH ×2 (14:42→20:29)
[2018-06-29] MEDS: HYDROmorphone 1 mg/ml syringe IV PRN ×2 (14:44→18:53)
[2018-06-29] MEDS: metoclopramide 5 mg/ml inj IV SCH ×2 (14:48→20:35)
[2018-06-29] MEDS: normal saline 1000ml 1,000 ML IV SCH (17:20)
--- NOTE | 2018-06-29 18:00 | NUR ---
Problems reprioritized. Patient report given, questions answered & plan of care reviewed with MICHELLE OSBORN. PT AWAKE IN BED, NO NEW COMPLAINTS.
--- NOTE | 2018-06-29 18:28 | NUR ---
Patient in room PA 351. I have received report from IRENA Covington and had the opportunity to ask questions and assume patient care. Addendum: 06/29/18 at 1829 by Magali Hernández RN Amended: Links added.
[2018-06-29 20:00] VITALS: BP 119/69
[2018-06-29] MEDS: insulin glargine (Lantus) pen - multi-dose SQ SCH (21:52)
[2018-06-30] VITALS: BP 123/71
[2018-06-30] MEDS: HYDROmorphone 1 mg/ml syringe IV PRN ×4 (00:23→19:35)
[2018-06-30] MEDS: metoclopramide 5 mg/ml inj IV SCH ×4 (02:17→21:45)
[2018-06-30] MEDS: insulin regular, human vial - multi-dose SQ SCH ×3 (02:47→22:12)
[2018-06-30 04:35] LABS: BASOPHILS % (AUTO) 0.1 % (0-1); EOSINOPHILS # (AUTO) 0.1 X10'3 (0-0.9); EOSINOPHILS % (AUTO) 0.4 % (0-6); HEMATOCRIT 23.8 % (35.0-45.0); HEMOGLOBIN 7.7 g/dl (12.0-16.0); LYMPHOCYTES # (AUTO) 0.7 X10'3 (1.1-4.8); LYMPHOCYTES % (AUTO) 4.4 % (21-51); MEAN CORPUSCULAR HEMOGLOBIN 29.5 PG (27.0-31.0); MEAN CORPUSCULAR HGB CONC 32.2 g/dL (33.0-36.5); MEAN CORPUSCULAR VOLUME 91.6 FL (78-98); MEAN PLATELET VOLUME 10.1 FL (7.4-10.4); MONOCYTES # (AUTO) 0.9 X10'3 (0-0.9); MONOCYTES % (AUTO) 5.6 % (2-12); NEUTROPHILS % (AUTO) 89.5 % (42-75); PLATELET COUNT 339 X10'3 (140-440); RED CELL DISTRIBUTION WIDTH 17.6 % (11.5-14.5); WHITE BLOOD COUNT 16.8 X10'3 (4.5-11.0)
[2018-06-30 05:03] LABS: ALANINE AMINOTRANSFERASE 16 U/L (12-78); ALBUMIN 1.6 G/DL (3.4-5.0); ALBUMIN/GLOBULIN RATIO 0.3 (1.1-1.5); ALKALINE PHOSPHATASE 83 IU/L (46-116); ANION GAP 8 (8-16); ASPARTATE AMINO TRANSFERASE 23 U/L (10-37); BILIRUBIN,TOTAL 0.3 MG/DL (0.1-1.0); BLOOD UREA NITROGEN 70 MG/DL (7-18); BUN/CREATININE RATIO 13.6 (6.6-38.0); CALCIUM 8.6 MG/DL (8.5-10.1); CHLORIDE 90 MMOL/L (99-107); CREATININE 5.16 MG/DL (0.40-0.90); GLUCOSE 165 MG/DL (70-104); MAGNESIUM 1.7 MG/DL (1.5-2.4); POTASSIUM 3.2 MMOL/L (3.5-5.1); SODIUM 128 MMOL/L (135-145); TOTAL CARBON DIOXIDE 30.2 MMOL/L (24-32); TOTAL PROTEIN 6.4 G/DL (6.4-8.2); eGFR 8 ML/MIN
[2018-06-30] MEDS: ondansetron/PF 4mg/2ml inj IV PRN ×2 (06:15→19:12)
--- NOTE | 2018-06-30 06:26 | NUR ---
Problems reprioritized. Patient report given, questions answered & plan of care reviewed with IRENA Yuan.
[2018-06-30] MEDS: lactobacillus rhamnosus 10,000 MMU CELLS/CAPSULE PO SCH ×2 (07:36→20:00)
[2018-06-30] MEDS: K and/or MAG REPLACEMENT MC SCH (07:36)
[2018-06-30] MEDS: sertraline 25mg tablet PO SCH ×2 (07:37→15:26)
[2018-06-30] MEDS: NUT.TX.IMPAIRED DIGEST FXN (Ensure Clear) 237 ML PO SCH ×3 (07:37→18:00)
[2018-06-30] MEDS: NUT.TX.IMP.RENAL FXN,LAC-REDUC (Nepro) 237 ML VANILLA PO SCH (07:37)
[2018-06-30 08:00] VITALS: BP 140/91
[2018-06-30] MEDS ORDERED: K and/or MAG REPLACEMENT MC SCH (08:00)
[2018-06-30] MEDS: heparin, porcine 5000 units/ml vial SQ SCH ×2 (08:44→21:42)
[2018-06-30] MEDS: methylnaltrexone br 12mg/0.6ml inj***SubQ only SQ SCH (08:45)
[2018-06-30 12:21] VITALS: BP 121/79
[2018-06-30] MEDS: proCHLORperazine 10 MG/2 ml inj IV PRN (17:42)
--- NOTE | 2018-06-30 18:07 | NUR ---
Patient in room PA 351. I have received report from Elsa OSBORN and had the opportunity to ask questions and assume patient care.
--- NOTE | 2018-06-30 18:13 | NUR ---
Problems reprioritized. Patient report given, questions answered & plan of care reviewed with marilou henning.
[2018-06-30 19:00] VITALS: BP 139/81
[2018-06-30] MEDS: fat emulsion IV 100 ML, MVI, adult No.4 with vit. K 10 ML, Trace element-5 inj. 1 ML in... IV SCH ×4 (21:24)
[2018-06-30] MEDS: insulin glargine (Lantus) pen - multi-dose SQ SCH (22:13)
--- NOTE | 2018-06-30 23:00 | NUR ---
Dialysis pATIENT - DOES NOT NORMALLY MAKE MUCH URINE Addendum: 07/01/18 at 0720 by Pilar Murrell RN Amended: Links added.
[2018-07-01] VITALS: BP 110/70
[2018-07-01] MEDS: LORazepam 2 mg/ml vial IV PRN (00:08)
[2018-07-01] MEDS: metoclopramide 5 mg/ml inj IV SCH ×4 (02:21→21:56)
[2018-07-01] MEDS: HYDROmorphone 1 mg/ml syringe IV PRN ×7 (03:16→23:09)
[2018-07-01] MEDS: insulin regular, human vial - multi-dose SQ SCH ×3 (03:29→22:21)
[2018-07-01] MEDS ORDERED: albuterol 2.5 MG/3 ML nebule NEB PRN (04:05)
[2018-07-01] MEDS ORDERED: albuterol 2.5 MG/3 ML nebule ONE (04:07)
[2018-07-01 05:28] LABS: BASOPHILS % (AUTO) 0.1 % (0-1); EOSINOPHILS # (AUTO) 0.1 X10'3 (0-0.9); LYMPHOCYTES # (AUTO) 0.9 X10'3 (1.1-4.8); LYMPHOCYTES % (AUTO) 6.2 % (21-51); MEAN PLATELET VOLUME 10.1 FL (7.4-10.4); MONOCYTES % (AUTO) 7.1 % (2-12); NEUTROPHILS # (AUTO) 12.3 X10'3 (1.8-7.7); NEUTROPHILS % (AUTO) 85.6 % (42-75); PLATELET COUNT 323 X10'3 (140-440); RED BLOOD COUNT 2.32 X10'6 (4.20-5.60); RED CELL DISTRIBUTION WIDTH 18.1 % (11.5-14.5); WHITE BLOOD COUNT 14.3 X10'3 (4.5-11.0)
--- NOTE | 2018-07-01 05:30 | NUR ---
came in early this am. stated that he knows his is depressed and has "switched off and gone within". states that is very uatsdin and private and is possibly waiting for another miracle to happen, as apparently this is what happened in 2004 after visiting [facility]. Even though pt. had been sick for 25yrs prior, the miracle had allowed for her to stop taking all of her meds and she was apparently healthy for about 2yrs after. He also stated that he is trying to get people form his jew to come pray with her, but difficult because pt. has not been to the jew d/t illness in the 2 years that they have lived in this area.
--- NOTE | 2018-07-01 05:30 | NUR ---
Patient bladder scanned at 2100 . Had 117 in bladder. Scanned again at around 0330 [id number] in bladder.
[2018-07-01 05:40] LABS: HEMATOCRIT 21.1 % (35.0-45.0)
[2018-07-01 06:02] LABS: ALANINE AMINOTRANSFERASE 13 U/L (12-78); ALBUMIN 1.5 G/DL (3.4-5.0); ALBUMIN/GLOBULIN RATIO 0.3 (1.1-1.5); ALKALINE PHOSPHATASE 86 IU/L (46-116); ANION GAP 13 (8-16); ASPARTATE AMINO TRANSFERASE 17 U/L (10-37); BILIRUBIN,TOTAL 0.3 MG/DL (0.1-1.0); BLOOD UREA NITROGEN 106 MG/DL (7-18); CALCIUM 8.4 MG/DL (8.5-10.1); CHLORIDE 86 MMOL/L (99-107); CREATININE 6.24 MG/DL (0.40-0.90); GLUCOSE 146 MG/DL (70-104); MAGNESIUM 1.7 MG/DL (1.5-2.4); PHOSPHORUS 1.9 MG/DL (2.3-4.5); POTASSIUM 3.1 MMOL/L (3.5-5.1); SODIUM 124 MMOL/L (135-145); TOTAL CARBON DIOXIDE 25.4 MMOL/L (24-32); TOTAL PROTEIN 5.8 G/DL (6.4-8.2); eGFR 7 ML/MIN
--- NOTE | 2018-07-01 06:40 | NUR ---
Problems reprioritized. Patient report given, questions answered & plan of care reviewed with Rebecca OSBORN.
[2018-07-01 07:39] LABS: MEAN CORPUSCULAR HEMOGLOBIN 29.8 PG (27.0-31.0); MEAN CORPUSCULAR HGB CONC 33.4 g/dL (33.0-36.5); MEAN CORPUSCULAR VOLUME 89.4 FL (78-98); MEAN PLATELET VOLUME 9.9 FL (7.4-10.4); PLATELET COUNT 348 X10'3 (140-440); RED BLOOD COUNT 2.42 X10'6 (4.20-5.60); RED CELL DISTRIBUTION WIDTH 17.7 % (11.5-14.5)
[2018-07-01 07:52] LABS: HEMATOCRIT 21.6 % (35.0-45.0); HEMOGLOBIN 7.2 g/dl (12.0-16.0)
[2018-07-01 08:00] VITALS: BP 159/77
[2018-07-01] MEDS: NUT.TX.IMPAIRED DIGEST FXN (Ensure Clear) 237 ML PO SCH ×3 (08:00→18:00)
[2018-07-01] MEDS: NUT.TX.IMP.RENAL FXN,LAC-REDUC (Nepro) 237 ML VANILLA PO SCH (08:00)
[2018-07-01] MEDS: lactobacillus rhamnosus 10,000 MMU CELLS/CAPSULE PO SCH ×2 (08:00→20:00)
[2018-07-01] MEDS: heparin, porcine 5000 units/ml vial SQ SCH ×2 (08:48→22:00)
[2018-07-01] MEDS ORDERED: heparin 1,000unit/ml 10ml vial 10 ML IV ONE (09:00)
[2018-07-01] MEDS ORDERED: normal saline 1000ml 250 ML IV PRN (09:00)
[2018-07-01] MEDS ORDERED: epoetin 20,000 units/ml inj IV ONE (09:00)
[2018-07-01] MEDS ORDERED: heparin 1,000 units/ml 10ml inj HE ONE ×2 (09:05)
[2018-07-01] MEDS: sertraline 25mg tablet PO SCH (11:07)
[2018-07-01] MEDS: ondansetron/PF 4mg/2ml inj IV PRN ×2 (11:08→19:06)
[2018-07-01 12:00] VITALS: BP 163/92
--- NOTE | 2018-07-01 12:49 | NUR ---
reassessment: Pt tolerating TPN at goal on HD. Electrolyte remain low but also on HD w/ non-E formula per MD recs; no signs of refeeding. Pt remains NPO per RN; documentation error showing 0%/refusing meals though pt remains NPO and not receiving meals. RN agrees to d/c [place] given pt NPO as well as restart PALB/TG bi-weekly labs. TG were down to 158 from prior elevation last check. Pt has small smears BM w/o significant GM yet. KUB show ileus vs partial obstruction s/p L hemicolectomy. Pt remains on routine reglan and relistor and off opiates. Will continue to monitor for TPN tolerance on HD. Rec: 1. 3:1 Clinimix non-E 5/15 TPN with 100 mL 20% intralipids 2L bag via PICC at 85 ml/hr goal; to provide 2040ml fluid, 1573 kcal, 97 g AA, 291 g DEX (3.55mg/kg/min), and 1179 total non-protein kcals. Initiate at 30ml/hr and if tolerated Q12 advance to goal. 2. prealbumin q /, daily wts 3. Continue GI promotility for post-op ileus per MD approval 4. monitor for signs of refeeding syndrome 5. advance diet per MD to low-residue Addendum: 07/01/18 at [address] Amended: Links added.
--- NOTE | 2018-07-01 13:33 | NUR ---
WOUND VAC EDUCATION PROVIDED BY WOUND CARE 1. Patient instructed to call the Wound Center or their Home Health Agency immediately if: * They notice a change in the color or amount of the fluid in the canister. * Their wound looks more red than usual or has a foul smell. * The skin around their wound looks reddened or irritated. * The dressing feels loose or appears to be loose. * They experience any increase or changes in their pain. * The alarm will not turn off. 2. Patient instructed that they should not be disconnected from suction for more than 2 hours at a time. * If they are not able to get the suction back on, they need to remove the dressing and take all of the foam out of the wound. * Then moisten sterile gauze with normal saline and place on/in the wound. * Change the dressing once a day until arrangements have been made to replace the wound vac dressing. 3. Patient instructed to turn the wound vac machine OFF and call 911 or go to the ED immediately if their canister fills rapidly with blood. 4. If any of these occur while in the hospital tell a nurse immediately. Addendum: 07/01/18 at 1339 by Missy Vivar RN Amended: Links added.
[2018-07-01 17:03] LABS: FERRITIN 272 NG/ML (8-252); LACTATE DEHYDROGENASE 233 U/L (81-234)
[2018-07-01] MEDS: normal saline 1000ml 1,000 ML IV SCH (17:20)
--- NOTE | 2018-07-01 18:30 | NUR ---
Patient in room PA 351. I have received report from Rebecca OSBORN and had the opportunity to ask questions and assume patient care.
[2018-07-01 19:00] VITALS: BP 122/72
[2018-07-01] MEDS: fat emulsion IV 100 ML, MVI, adult No.4 with vit. K 10 ML, Trace element-5 inj. 1 ML in... IV SCH ×4 (21:59)
[2018-07-01] MEDS: diatr meglu/diatrizoate 30ml oral sol.-(3 dose) bottle PO SCH (22:05)
[2018-07-01] MEDS: insulin glargine (Lantus) pen - multi-dose SQ SCH (22:23)
[2018-07-01 23:00] VITALS: BP 159/83
[2018-07-01] MEDS: hydrALAZINE 20mg/ml inj. IV PRN (23:02)
[2018-07-02] MEDS: LORazepam 2 mg/ml vial IV PRN (00:25)
--- NOTE | 2018-07-02 01:11 | NUR ---
After coughing, lungs CTA. encourage use of db&C and incentive spirometer w/a. Addendum: 07/02/18 at 0122 by Pilar Murrell RN Amended: Links added.
[2018-07-02 01:57] VITALS: BP 111/55
[2018-07-02] MEDS: metoclopramide 5 mg/ml inj IV SCH ×3 (02:01→13:35)
[2018-07-02] MEDS: insulin regular, human vial - multi-dose SQ SCH ×4 (02:26→20:11)
[2018-07-02] MEDS: ondansetron/PF 4mg/2ml inj IV PRN ×2 (02:29→08:21)
[2018-07-02 05:15] LABS: ALANINE AMINOTRANSFERASE 18 U/L (12-78); ALBUMIN 1.4 G/DL (3.4-5.0); ALBUMIN/GLOBULIN RATIO 0.3 (1.1-1.5); ALKALINE PHOSPHATASE 120 IU/L (46-116); ANION GAP 7 (8-16); ASPARTATE AMINO TRANSFERASE 22 U/L (10-37); BILIRUBIN,TOTAL 0.3 MG/DL (0.1-1.0); BLOOD UREA NITROGEN 52 MG/DL (7-18); BUN/CREATININE RATIO 15.9 (6.6-38.0); CHLORIDE 98 MMOL/L (99-107); CREATININE 3.28 MG/DL (0.40-0.90); GLUCOSE 109 MG/DL (70-104); MAGNESIUM 1.5 MG/DL (1.5-2.4); POTASSIUM 3.2 MMOL/L (3.5-5.1); SODIUM 131 MMOL/L (135-145); TOTAL CARBON DIOXIDE 26.5 MMOL/L (24-32); TOTAL PROTEIN 5.6 G/DL (6.4-8.2); eGFR 14 ML/MIN
[2018-07-02] MEDS: HYDROmorphone 1 mg/ml syringe IV PRN ×3 (05:26→20:49)
--- NOTE | 2018-07-02 06:30 | NUR ---
Problems reprioritized. Patient report given, questions answered & plan of care reviewed with Aishwarya.
[2018-07-02 07:00] VITALS: BP 107/65
--- NOTE | 2018-07-02 07:08 | NUR ---
Patient in room AP 351. I have received report from Pilar OSBORN and had the opportunity to ask questions and assume patient care.
[2018-07-02] MEDS: heparin, porcine 5000 units/ml vial SQ SCH ×2 (07:39→20:48)
[2018-07-02] MEDS: diatr meglu/diatrizoate 30ml oral sol.-(3 dose) bottle PO SCH ×2 (07:39→11:25)
[2018-07-02] MEDS: lactobacillus rhamnosus 10,000 MMU CELLS/CAPSULE PO SCH ×2 (07:44→20:00)
[2018-07-02] MEDS: NUT.TX.IMPAIRED DIGEST FXN (Ensure Clear) 237 ML PO SCH ×3 (07:45→18:00)
[2018-07-02] MEDS: NUT.TX.IMP.RENAL FXN,LAC-REDUC (Nepro) 237 ML VANILLA PO SCH (07:46)
[2018-07-02] MEDS: methylnaltrexone br 12mg/0.6ml inj***SubQ only SQ SCH (08:00)
[2018-07-02 09:24] LABS: MEAN CORPUSCULAR HEMOGLOBIN 29.9 PG (27.0-31.0); MEAN CORPUSCULAR HGB CONC 33.2 g/dL (33.0-36.5); MEAN CORPUSCULAR VOLUME 90.1 FL (78-98); MEAN PLATELET VOLUME 9.5 FL (7.4-10.4); PLATELET COUNT 314 X10'3 (140-440); RED BLOOD COUNT 2.31 X10'6 (4.20-5.60); WHITE BLOOD COUNT 14.1 X10'3 (4.5-11.0)
[2018-07-02 09:30] LABS: HEMATOCRIT 20.8 % (35.0-45.0); HEMOGLOBIN 6.9 g/dl (12.0-16.0)
--- NOTE | 2018-07-02 09:37 | NUR ---
Received critical lab hgb of 6.9 and hct of 20.8 today - Dr. Chowdhury notified via [employer] system Addendum: 07/02/18 at 1228 by Rickey Mukherjee RN Dr. Chowdhury gave verbal order to transfuse 1 unit PRBC to be given during hemodialysis tomorrow
[2018-07-02] MEDS ORDERED: iohexol 300mg/ml 100ml inj. ONE (10:33)
[2018-07-02] MEDS ORDERED: proMETHazine 25mg rectal suppository RC ONE (10:50)
[2018-07-02 11:00] VITALS: BP 132/69
--- NOTE | 2018-07-02 12:55 | NUR ---
Rec'd call from Radiologist regarding CT results suggestive of bowel obstruction. Call placed to [facility] requesting to have Dr Campuzano call back when between cases.
[2018-07-02] MEDS: sertraline 25mg tablet PO SCH (13:35)
--- NOTE | 2018-07-02 14:54 | NUR ---
Dr. Hargrove notified about today's hgb of 6.9 and hct of 20.8. He agreed with the plan for 1 unit PRBC to be transfused during hemodialysis tomorrow
--- NOTE | 2018-07-02 18:28 | NUR ---
Problems reprioritized. Patient report given, questions answered & plan of care reviewed with Pilar OSBORN.
--- NOTE | 2018-07-02 18:30 | NUR ---
Patient in room PA 351. I have received report from Rickey OSBORN and had the opportunity to ask questions and assume patient care.
[2018-07-02 19:00] VITALS: BP 131/67
[2018-07-02] MEDS: proMETHazine 25mg rectal suppository RC PRN (20:58)
[2018-07-02] MEDS: normal saline 1000ml 1,000 ML IV SCH (21:10)
[2018-07-02] MEDS: fat emulsion IV 100 ML, MVI, adult No.4 with vit. K 10 ML, Trace element-5 inj. 1 ML in... IV SCH ×4 (21:13)
[2018-07-02] MEDS: insulin glargine (Lantus) pen - multi-dose SQ SCH (21:41)
[2018-07-03] VITALS: BP 131/63
[2018-07-03] MEDS: insulin regular, human vial - multi-dose SQ SCH ×4 (03:48→21:08)
[2018-07-03] MEDS: HYDROmorphone 1 mg/ml syringe IV PRN ×3 (03:50→14:43)
[2018-07-03] MEDS: proMETHazine 25mg rectal suppository RC PRN (05:50)
[2018-07-03] MEDS: mag hydrox/Alum hydrox/simeth 30ml oral suspension PO PRN (06:37)
--- NOTE | 2018-07-03 06:45 | NUR ---
Problems reprioritized. Patient report given, questions answered & plan of care reviewed with Rickey OSBORN.
--- NOTE | 2018-07-03 06:47 | NUR ---
Patient in room PA 351. I have received report from Pilar OSBORN and had the opportunity to ask questions and assume patient care.
[2018-07-03 07:00] VITALS: BP 176/82
[2018-07-03] MEDS: NUT.TX.IMP.RENAL FXN,LAC-REDUC (Nepro) 237 ML VANILLA PO SCH (08:00)
[2018-07-03] MEDS ORDERED: heparin 1,000unit/ml 10ml vial 10 ML IV ONE (08:00)
[2018-07-03] MEDS ORDERED: heparin 1,000 units/ml 10ml inj HE ONE ×2 (08:00)
[2018-07-03] MEDS: NUT.TX.IMPAIRED DIGEST FXN (Ensure Clear) 237 ML PO SCH ×3 (08:00→18:00)
[2018-07-03] MEDS ORDERED: epoetin 20,000 units/ml inj IV ONE (08:00)
[2018-07-03] MEDS ORDERED: normal saline 1000ml 250 ML IV PRN (08:00)
[2018-07-03] MEDS: lactobacillus rhamnosus 10,000 MMU CELLS/CAPSULE PO SCH ×2 (08:24→20:00)
[2018-07-03] MEDS: heparin, porcine 5000 units/ml vial SQ SCH ×2 (08:24→21:10)
[2018-07-03] MEDS: sertraline 25mg tablet PO SCH (08:24)
[2018-07-03 10:36] VITALS: BP 120/70
[2018-07-03 10:38] LABS: MEAN CORPUSCULAR HEMOGLOBIN 29.1 PG (27.0-31.0); MEAN CORPUSCULAR HGB CONC 32.2 g/dL (33.0-36.5); MEAN CORPUSCULAR VOLUME 90.4 FL (78-98); MEAN PLATELET VOLUME 9.4 FL (7.4-10.4); PLATELET COUNT 305 X10'3 (140-440); RED BLOOD COUNT 2.23 X10'6 (4.20-5.60); RED CELL DISTRIBUTION WIDTH 18.4 % (11.5-14.5); WHITE BLOOD COUNT 14.4 X10'3 (4.5-11.0)
--- NOTE | 2018-07-03 10:38 | NUR ---
1 unit PRBC blood product verified with patient's name, blood ID number, etc. Initial vital signs taken. Blood product given to the dialysis nurse Radha who will be the one to transfuse the blood during hemodialysis per MD order
[2018-07-03 10:41] LABS: HEMOGLOBIN 6.5 g/dl (12.0-16.0)
[2018-07-03 10:42] LABS: HEMATOCRIT 20.2 % (35.0-45.0)
--- NOTE | 2018-07-03 10:48 | NUR ---
Received critical lab hgb 6.5, hct 20.2, this was taken prior to blood transfusion. 1 unit of PRBC just started by dialysis nurse at bedside. Dr. Chowdhury notified about this critical lab value
[2018-07-03 11:00] VITALS: BP_SYST 111; BP_SYST 136; BP_DIAS 60; BP_DIAS 74
[2018-07-03 12:57] VITALS: BP 125/73
[2018-07-03 15:55] LABS: HEMATOCRIT 25.2 % (35.0-45.0); HEMOGLOBIN 8.3 g/dl (12.0-16.0); MEAN CORPUSCULAR HEMOGLOBIN 29.2 PG (27.0-31.0); MEAN CORPUSCULAR HGB CONC 32.8 g/dL (33.0-36.5); MEAN CORPUSCULAR VOLUME 88.9 FL (78-98); MEAN PLATELET VOLUME 9.1 FL (7.4-10.4); PLATELET COUNT 274 X10'3 (140-440); RED BLOOD COUNT 2.83 X10'6 (4.20-5.60); RED CELL DISTRIBUTION WIDTH 17.2 % (11.5-14.5)
[2018-07-03 16:06] LABS: WHITE BLOOD COUNT 11.8 X10'3 (4.5-11.0)
--- NOTE | 2018-07-03 18:15 | NUR ---
Patient in room PA 351. I have received report from Rickey OSBORN and had the opportunity to ask questions and assume patient care.
--- NOTE | 2018-07-03 18:55 | NUR ---
Problems reprioritized. Patient report given, questions answered & plan of care reviewed with Ligia OSBORN and Jose Maria OSBORN.
[2018-07-03 20:00] VITALS: BP 140/69
[2018-07-03] MEDS: insulin glargine (Lantus) pen - multi-dose SQ SCH (21:15)
[2018-07-03] MEDS: normal saline 1000ml 1,000 ML IV SCH (21:17)
[2018-07-03] MEDS: fat emulsion IV 100 ML, MVI, adult No.4 with vit. K 10 ML, Trace element-5 inj. 1 ML in... IV SCH ×4 (21:18)
[2018-07-03] MEDS: ondansetron/PF 4mg/2ml inj IV PRN (21:39)
[2018-07-04] MEDS: HYDROmorphone 1 mg/ml syringe IV PRN ×4 (00:39→22:12)
[2018-07-04 00:48] VITALS: BP 148/70
--- NOTE | 2018-07-04 02:23 | NUR ---
agree with nursing assessment done by IRENA Moise. Addendum: 07/04/18 at 0223 by Georgia Desouza RN Amended: Links added.
[2018-07-04] MEDS: insulin regular, human vial - multi-dose SQ SCH ×4 (02:44→20:52)
--- NOTE | 2018-07-04 06:47 | NUR ---
Problems reprioritized. Patient report given, questions answered & plan of care reviewed with IRENA Ye. Addendum: 07/04/18 at 0648 by Georgia Desouza RN Amended: Links added.
--- NOTE | 2018-07-04 06:51 | NUR ---
Patient in room PA 351. I have received report from IRENA Strong and had the opportunity to ask questions and assume patient care.
[2018-07-04 07:30] VITALS: BP 144/72
[2018-07-04] MEDS: NUT.TX.IMP.RENAL FXN,LAC-REDUC (Nepro) 237 ML VANILLA PO SCH (08:00)
[2018-07-04] MEDS: methylnaltrexone br 12mg/0.6ml inj***SubQ only SQ SCH (08:00)
[2018-07-04] MEDS: NUT.TX.IMPAIRED DIGEST FXN (Ensure Clear) 237 ML PO SCH ×3 (08:00→18:00)
[2018-07-04] MEDS: heparin, porcine 5000 units/ml vial SQ SCH ×2 (08:23→20:26)
[2018-07-04] MEDS: lactobacillus rhamnosus 10,000 MMU CELLS/CAPSULE PO SCH ×3 (08:23→20:25)
[2018-07-04] MEDS: sertraline 25mg tablet PO SCH ×2 (08:23→09:29)
[2018-07-04] MEDS: proMETHazine 25mg rectal suppository RC PRN (08:23)
--- NOTE | 2018-07-04 10:59 | NUR ---
Reassessment: Pt remains NPO for bowel rest d/t SBO or partial SBO however taking sips of water per MD notes. Per I&O pt with BM 07/03 and with diarrhea per GI trends and med list however with hypoactive bowel sounds per physical assessment. Pt continues with TPN and HD. Current wt +2.[address] assessment; wt likely to fluctuate with HD. Will continue to follow. Rec: 1. 3:1 Clinimix non-E 07/24 TPN with 100 mL 20% intralipids 2L bag via PICC at 85 ml/hr goal; to provide 2040ml fluid, 1573 kcal, 97 g AA, 291 g DEX (3.55mg/kg/min), and 1179 total non-protein kcals. Initiate at 30ml/hr and if tolerated Q12 advance to goal. 2. prealbumin q /, daily wts 3. Continue GI promotility for post-op ileus per MD approval 4. monitor for signs of refeeding syndrome 5. advance diet per MD to low-residue Addendum: 07/04/18 at [address] Amended: Links added.
[2018-07-04 12:00] VITALS: BP 142/71
[2018-07-04] MEDS ORDERED: sodium phosphate inj. 30 MMOL in dextrose 5%-water 250 ML IV ONE (15:10)
--- NOTE | 2018-07-04 18:48 | NUR ---
Problems reprioritized. Patient report given, questions answered & plan of care reviewed with IRENA Galicia.
[2018-07-04 19:00] VITALS: BP 147/77
[2018-07-04] MEDS: fat emulsion IV 100 ML, MVI, adult No.4 with vit. K 10 ML, Trace element-5 inj. 1 ML in... IV SCH ×4 (20:25)
[2018-07-04] MEDS: insulin glargine (Lantus) pen - multi-dose SQ SCH (20:50)
[2018-07-05] VITALS: BP 140/73
[2018-07-05] MEDS: HYDROmorphone 1 mg/ml syringe IV PRN ×5 (02:30→19:46)
[2018-07-05] MEDS: insulin regular, human vial - multi-dose SQ SCH ×4 (02:43→21:25)
[2018-07-05 03:01] LABS: BASOPHILS % (AUTO) 0.2 % (0-1); EOSINOPHILS # (AUTO) 0.4 X10'3 (0-0.9); EOSINOPHILS % (AUTO) 3.4 % (0-6); HEMATOCRIT 22.1 % (35.0-45.0); HEMOGLOBIN 7.3 g/dl (12.0-16.0); LYMPHOCYTES % (AUTO) 8.1 % (21-51); MEAN CORPUSCULAR HEMOGLOBIN 29.3 PG (27.0-31.0); MEAN CORPUSCULAR HGB CONC 32.9 g/dL (33.0-36.5); MONOCYTES # (AUTO) 0.9 X10'3 (0-0.9); MONOCYTES % (AUTO) 7.6 % (2-12); NEUTROPHILS # (AUTO) 9.5 X10'3 (1.8-7.7); NEUTROPHILS % (AUTO) 80.7 % (42-75); PLATELET COUNT 286 X10'3 (140-440); RED BLOOD COUNT 2.49 X10'6 (4.20-5.60); RED CELL DISTRIBUTION WIDTH 17.7 % (11.5-14.5); WHITE BLOOD COUNT 11.7 X10'3 (4.5-11.0)
[2018-07-05 03:13] LABS: ALANINE AMINOTRANSFERASE 17 U/L (12-78); ALBUMIN 1.4 G/DL (3.4-5.0); ALBUMIN/GLOBULIN RATIO 0.4 (1.1-1.5); ALKALINE PHOSPHATASE 107 IU/L (46-116); ANION GAP 11 (8-16); ASPARTATE AMINO TRANSFERASE 25 U/L (10-37); BILIRUBIN,TOTAL 0.2 MG/DL (0.1-1.0); BLOOD UREA NITROGEN 80 MG/DL (7-18); BUN/CREATININE RATIO 19.2 (6.6-38.0); CALCIUM 7.2 MG/DL (8.5-10.1); CHLORIDE 96 MMOL/L (99-107); CREATININE 4.17 MG/DL (0.40-0.90); GLUCOSE 97 MG/DL (70-104); MAGNESIUM 1.5 MG/DL (1.5-2.4); PHOSPHORUS 4.2 MG/DL (2.3-4.5); POTASSIUM 3.7 MMOL/L (3.5-5.1); SODIUM 129 MMOL/L (135-145); TOTAL PROTEIN 5.4 G/DL (6.4-8.2); eGFR 11 ML/MIN
--- NOTE | 2018-07-05 06:15 | NUR ---
I have received report from Frida OSBORN and had the opportunity to ask questions and assume patient care.
--- NOTE | 2018-07-05 06:32 | NUR ---
Problems reprioritized. Patient report given, questions answered & plan of care reviewed with Silvana OSBORN. Addendum: 07/05/18 at 0632 by Frida Miranda RN Amended: Links added.
[2018-07-05] MEDS: sertraline 25mg tablet PO SCH (07:17)
[2018-07-05] MEDS: lactobacillus rhamnosus 10,000 MMU CELLS/CAPSULE PO SCH ×2 (07:17→19:44)
[2018-07-05 08:00] VITALS: BP 156/75
[2018-07-05] MEDS ORDERED: heparin 1,000 units/ml 10ml inj HE ONE ×2 (08:00)
[2018-07-05] MEDS: heparin, porcine 5000 units/ml vial SQ SCH ×2 (08:00→19:45)
[2018-07-05] MEDS: NUT.TX.IMPAIRED DIGEST FXN (Ensure Clear) 237 ML PO SCH ×3 (08:00→20:00)
[2018-07-05] MEDS ORDERED: normal saline 1000ml 250 ML IV PRN (08:00)
[2018-07-05] MEDS ORDERED: heparin 1,000unit/ml 10ml vial 10 ML IV ONE (08:00)
[2018-07-05] MEDS: NUT.TX.IMP.RENAL FXN,LAC-REDUC (Nepro) 237 ML VANILLA PO SCH (08:00)
[2018-07-05] MEDS ORDERED: epoetin 20,000 units/ml inj IV ONE (08:00)
[2018-07-05 11:00] VITALS: BP 139/81
--- NOTE | 2018-07-05 15:12 | NUR ---
Reassessment: Pt advanced to full liquids with resolving partial SBO per MD notes. Patient with bowel sounds and had moderate BM today. Pt continues with TPN and HD. Patient now receiving electrolyte TPN formula d/t low phosphorus levels. Wt likely to fluctuate with HD. Will continue to follow. Rec: 1. 3:1 Clinimix non-; to provide 2040ml fluid, 1573 kcal, 97 g AA, 291 g DEX (3.55mg/kg/min), and 1179 total non-protein kcals. Continue until diet advanced and PO intake >65%. 2. prealbumin q /, daily wts 3. advance diet per MD to low-residue Addendum: 07/05/18 at [address] Amended: Links added. Addendum: 07/05/18 at [address] Reassessment: Pt advanced to full liquids with resolving partial SBO per MD notes. Patient with bowel sounds and had moderate BM today. Pt continues with TPN and HD. Patient now receiving electrolyte TPN formula d/t low phosphorus levels. Wt likely to fluctuate with HD. Will continue to follow. Rec: 1. 3:1 Clinimix E; to provide 2040ml fluid, 1573 kcal, 97 g AA, 291 g DEX (3.55mg/kg/min), and 1179 total non-protein kcals. Continue until diet advanced and PO intake >65%. 2. prealbumin q M/Th, daily wts 3. advance diet per MD to low-residue Addendum: 07/05/18 at [address] Reassessment: Pt advanced to full liquids with resolving partial SBO per MD notes. Patient with bowel sounds and had moderate BM today. Pt continues with TPN and HD. Patient now receiving electrolyte TPN formula d/t low phosphorus levels. Wt likely to fluctuate with HD. Will continue to follow. Rec: 1. 3:1 TPN with Clinimix E 07/24; to provide 2040ml fluid, 1573 kcal, 97 g AA, 291 g DEX (3.55mg/kg/min), and 1179 total non-protein kcals. Continue until diet advanced and PO intake >65%. 2. prealbumin q M/Th, daily wts 3. advance diet per MD to low-residue
[2018-07-05 17:43] LABS: CLARITY,URINE CLEAR (Clear); COLOR,URINE YELLOW (Yellow); GLUCOSE, URINE NEGATIVE (Neg); KETONES,URINE NEGATIVE (Neg); LEUKOCYTE ESTERASE ,URINE NEGATIVE (Neg); NITRITES, URINE NEGATIVE (Neg); OCCULT BLOOD,URINE SMALL (Neg); PROTEIN,URINE 100 mg/dl (Neg); UROBILINOGEN,URINE 0.2 E.U/dL (0.2-1.0)
[2018-07-05 17:57] LABS: UA COLLECTION TYPE FOLEY CATH
[2018-07-05 17:58] LABS: BACTERIA,URINE NONE SEEN /HPF (Neg); MUCUS STRANDS NONE SEEN /LPF (Neg); RBC,URINE 0-2 /HPF (0-2); SQUAMOUS EPITHELIAL CELL,UR NONE SEEN /LPF (FEW); WBC,URINE 0-4 /HPF (0-4)
--- NOTE | 2018-07-05 18:23 | NUR ---
Problems reprioritized. Patient report given, questions answered & plan of care reviewed with Frida OSBORN.
[2018-07-05 19:00] VITALS: BP 145/77
[2018-07-05] MEDS: fat emulsion IV 100 ML, MVI, adult No.4 with vit. K 10 ML, Trace element-5 inj. 1 ML in... IV SCH ×4 (19:54)
[2018-07-05] MEDS: insulin glargine (Lantus) pen - multi-dose SQ SCH (21:26)
[2018-07-06] VITALS: BP 130/71
[2018-07-06] MEDS: insulin regular, human vial - multi-dose SQ SCH ×3 (02:30→20:16)
[2018-07-06] MEDS: mag hydrox/Alum hydrox/simeth 30ml oral suspension PO PRN (02:32)
[2018-07-06] MEDS: HYDROmorphone 1 mg/ml syringe IV PRN ×6 (03:40→22:49)
--- NOTE | 2018-07-06 06:00 | NUR ---
Patient in room PA 351. I have received report from FRANCE OSBORN and had the opportunity to ask questions and assume patient care.
--- NOTE | 2018-07-06 06:37 | NUR ---
Problems reprioritized. Patient report given, questions answered & plan of care reviewed with Charu OSBORN. Addendum: 07/06/18 at 0638 by Frida Miranda RN Amended: Links added.
[2018-07-06 07:00] VITALS: BP 142/71
[2018-07-06] MEDS: NUT.TX.IMP.RENAL FXN,LAC-REDUC (Nepro) 237 ML VANILLA PO SCH (08:00)
[2018-07-06] MEDS: NUT.TX.IMPAIRED DIGEST FXN (Ensure Clear) 237 ML PO SCH ×3 (08:00→18:00)
[2018-07-06] MEDS: heparin, porcine 5000 units/ml vial SQ SCH ×2 (08:58→19:11)
[2018-07-06] MEDS: lactobacillus rhamnosus 10,000 MMU CELLS/CAPSULE PO SCH ×2 (08:59→19:11)
[2018-07-06] MEDS: sertraline 25mg tablet PO SCH (08:59)
[2018-07-06] MEDS: methylnaltrexone br 12mg/0.6ml inj***SubQ only SQ SCH (08:59)
[2018-07-06 11:00] VITALS: BP 135/73
[2018-07-06 16:52] LABS: MEAN CORPUSCULAR HGB CONC 31.9 g/dL (33.0-36.5); MEAN CORPUSCULAR VOLUME 90.7 FL (78-98); PLATELET COUNT 301 X10'3 (140-440); RED BLOOD COUNT 2.76 X10'6 (4.20-5.60); RED CELL DISTRIBUTION WIDTH 17.9 % (11.5-14.5); WHITE BLOOD COUNT 13.2 X10'3 (4.5-11.0)
[2018-07-06 16:57] LABS: ALBUMIN 1.5 G/DL (3.4-5.0); ANION GAP 9 (8-16); BLOOD UREA NITROGEN 66 MG/DL (7-18); BUN/CREATININE RATIO 20.3 (6.6-38.0); CHLORIDE 97 MMOL/L (99-107); CREATININE 3.25 MG/DL (0.40-0.90); GLUCOSE 105 MG/DL (70-104); POTASSIUM 4.9 MMOL/L (3.5-5.1); SODIUM 132 MMOL/L (135-145); TOTAL CARBON DIOXIDE 26.5 MMOL/L (24-32); eGFR 14 ML/MIN
[2018-07-06 18:00] VITALS: BP 143/74
--- NOTE | 2018-07-06 18:35 | NUR ---
Patient in room PA 351. I have received report from Charu OSBRON and had the opportunity to ask questions and assume patient care.
--- NOTE | 2018-07-06 18:40 | NUR ---
Problems reprioritized. Patient report given, questions answered & plan of care reviewed with ABHAY OSBORN .
[2018-07-06] MEDS: fat emulsion IV 100 ML, MVI, adult No.4 with vit. K 10 ML, Trace element-5 inj. 1 ML in... IV SCH ×4 (19:11)
[2018-07-06] MEDS: insulin glargine (Lantus) pen - multi-dose SQ SCH (20:18)
[2018-07-07] VITALS: BP 127/71
[2018-07-07] MEDS: HYDROmorphone 1 mg/ml syringe IV PRN ×3 (01:43→08:00)
[2018-07-07] MEDS: insulin regular, human vial - multi-dose SQ SCH ×4 (01:52→20:55)
--- NOTE | 2018-07-07 06:30 | NUR ---
Problems reprioritized. Patient report given, questions answered & plan of care reviewed with Charu OSBORN.
[2018-07-07 07:07] VITALS: BP 155/78
[2018-07-07] MEDS: NUT.TX.IMP.RENAL FXN,LAC-REDUC (Nepro) 237 ML VANILLA PO SCH (08:00)
[2018-07-07] MEDS: NUT.TX.IMPAIRED DIGEST FXN (Ensure Clear) 237 ML PO SCH (08:00)
[2018-07-07] MEDS: heparin, porcine 5000 units/ml vial SQ SCH ×2 (08:00→19:05)
[2018-07-07] MEDS: lactobacillus rhamnosus 10,000 MMU CELLS/CAPSULE PO SCH ×2 (08:01→19:04)
[2018-07-07] MEDS: sertraline 25mg tablet PO SCH (08:01)
[2018-07-07 11:00] VITALS: BP 164/75
[2018-07-07] MEDS ORDERED: HYDROmorphone 1 mg/ml syringe IV PRN (11:15)
[2018-07-07] MEDS ORDERED: HYDROcodone/acetaminophen 5mg/325mg tablet PO PRN (11:20)
[2018-07-07] MEDS: magnesium hydroxide 30ml (MOM) UD suspension PO PRN (15:36)
--- NOTE | 2018-07-07 18:17 | NUR ---
Problems reprioritized. Patient report given, questions answered & plan of care reviewed with MICHELLE OSBORN.
[2018-07-07] MEDS: HYDROcodone/acetaminophen 10/325mg tab PO PRN ×2 (19:05→23:58)
[2018-07-07] MEDS: fat emulsion IV 100 ML, MVI, adult No.4 with vit. K 10 ML, Trace element-5 inj. 1 ML in... IV SCH ×4 (19:06)
[2018-07-07 20:00] VITALS: BP 162/82
[2018-07-07] MEDS: insulin glargine (Lantus) pen - multi-dose SQ SCH (20:54)
[2018-07-08] VITALS: BP 152/72
--- NOTE | 2018-07-08 01:20 | NUR ---
24 hour urine started.
[2018-07-08] MEDS: insulin regular, human vial - multi-dose SQ SCH ×3 (01:46→15:21)
[2018-07-08] MEDS: HYDROcodone/acetaminophen 10/325mg tab PO PRN ×4 (04:52→19:19)
--- NOTE | 2018-07-08 06:15 | NUR ---
Patient in room PA 351. I have received report from Ale OSBORN and had the opportunity to ask questions and assume patient care.
--- NOTE | 2018-07-08 06:26 | NUR ---
Problems reprioritized. Patient report given, questions answered & plan of care reviewed with IRENA Pina.
[2018-07-08 06:54] VITALS: BP 145/73
--- NOTE | 2018-07-08 07:01 | NUR ---
Patient in room PA 351. I have received report from Silvana OSBORN and had the opportunity to ask questions and assume patient care.
[2018-07-08] MEDS: lactobacillus rhamnosus 10,000 MMU CELLS/CAPSULE PO SCH (07:44)
[2018-07-08] MEDS: sertraline 25mg tablet PO SCH (07:45)
[2018-07-08] MEDS: heparin, porcine 5000 units/ml vial SQ SCH (07:47)
[2018-07-08] MEDS: methylnaltrexone br 12mg/0.6ml inj***SubQ only SQ SCH (07:53)
[2018-07-08] MEDS ORDERED: normal saline 1000ml 250 ML IV PRN (09:19)
[2018-07-08] MEDS ORDERED: heparin 1,000unit/ml 10ml vial 10 ML IV ONE (09:19)
[2018-07-08] MEDS ORDERED: epoetin 20,000 units/ml inj IV ONE (09:20)
[2018-07-08] MEDS ORDERED: heparin 1,000 units/ml 10ml inj HE ONE ×2 (09:25)
[2018-07-08] MEDS: ondansetron/PF 4mg/2ml inj IV PRN (10:44)
--- NOTE | 2018-07-08 10:59 | NUR ---
Student Medication Administration: For this medication-pass time frame, all medication were reviewed, dispensed, administered and documented per hospital policy by Mik nursing tech.
[2018-07-08 11:11] VITALS: BP 157/80
--- NOTE | 2018-07-08 11:54 | NUR ---
Student documentation: I have reviewed and agree with all interventions, assessments performed and documented by Mik, psychiatric nursing aide.
--- NOTE | 2018-07-08 12:05 | NUR ---
Problems reprioritized. Patient report given, questions answered & plan of care reviewed with Maddy BLAIR
--- NOTE | 2018-07-08 12:10 | NUR ---
Patient in room PA 351. I have received report from Mik Hernandez RN and Silvana RN and had the opportunity to ask questions and assume patient care.
--- NOTE | 2018-07-08 15:49 | NUR ---
WOUND VAC EDUCATION PROVIDED BY WOUND CARE 1. Patient instructed to call the Wound Center or their Home Health Agency immediately if: * They notice a change in the color or amount of the fluid in the canister. * Their wound looks more red than usual or has a foul smell. * The skin around their wound looks reddened or irritated. * The dressing feels loose or appears to be loose. * They experience any increase or changes in their pain. * The alarm will not turn off. 2. Patient instructed that they should not be disconnected from suction for more than 2 hours at a time. * If they are not able to get the suction back on, they need to remove the dressing and take all of the foam out of the wound. * Then moisten sterile gauze with normal saline and place on/in the wound. * Change the dressing once a day until arrangements have been made to replace the wound vac dressing. 3. Patient instructed to turn the wound vac machine OFF and call 911 or go to the ED immediately if their canister fills rapidly with blood. 4. If any of these occur while in the hospital tell a nurse immediately. Addendum: 07/08/18 at 1551 by Missy Vivar RN Amended: Links added.
--- NOTE | 2018-07-08 17:26 | NUR ---
Discharge delayed. Patient on TPN, needs pump IV pump to infuse D10. Arranging different transportation.
--- NOTE | 2018-07-08 18:30 | NUR ---
Patient in room PA 351. I have received report from COLIN OSBORN and had the opportunity to ask questions and assume patient care. PATIENT READY FOR TRANSFER TO [facility]. WAITING FOR EMS FOR [place].
--- NOTE | 2018-07-08 19:38 | NUR ---
Blood glucose 106. Patient no longer on TPN in anticipation for transfer to [facility]. Did not cover for insulin.
[2018-07-08 20:00] VITALS: BP 154/65
--- NOTE | 2018-07-08 20:20 | NUR ---
PATIENT LEFT WITH EMS WITH 2 STAFF IN A GURNEY, ALERT AND ORIENTED. PATIENT'S BELONGINGS SENT WITH AND WILL MEET HER AT [facility]
== END 2018-07-08 20:29 | DRG 853 ==
LOC: ER 23:11 → ED HOLD 06-05 03:13 → EDBEDREQ 06-05 13:03 → SUR 3N 06-05 14:21
PROVIDERS: ADMIT Hospitalist; ATTEND Family Medicine
PROC: 30233N1 Transfusion of Nonautologous Red Blood Cells into Peripheral Vein, Percutaneous Approach (ICD-10-PCS; 2018-06-05)
PROC: 5A1D70Z Performance of Urinary Filtration, Intermittent, Less than 6 Hours Per Day (ICD-10-PCS; 2018-06-05)
PROC: 0JH63XZ Insertion of Tunneled Vascular Access Device into Chest Subcutaneous Tissue and Fascia, Percutaneous Approach (ICD-10-PCS; 2018-06-05)
PROC: 02HV33Z Insertion of Infusion Device into Superior Vena Cava, Percutaneous Approach (ICD-10-PCS; 2018-06-05)
PROC: B5181ZA Fluoroscopy of Superior Vena Cava using Low Osmolar Contrast, Guidance (ICD-10-PCS; 2018-06-05)
PROC: 5A1D70Z Performance of Urinary Filtration, Intermittent, Less than 6 Hours Per Day (ICD-10-PCS; 2018-06-06)
PROC: 5A1D70Z Performance of Urinary Filtration, Intermittent, Less than 6 Hours Per Day (ICD-10-PCS; 2018-06-07)
PROC: 5A1D70Z Performance of Urinary Filtration, Intermittent, Less than 6 Hours Per Day (ICD-10-PCS; 2018-06-10)
PROC: 5A1D70Z Performance of Urinary Filtration, Intermittent, Less than 6 Hours Per Day (ICD-10-PCS; 2018-06-12)
PROC: 0UT00ZZ Resection of Right Ovary, Open Approach (ICD-10-PCS; 2018-06-14)
PROC: 0UT50ZZ Resection of Right Fallopian Tube, Open Approach (ICD-10-PCS; 2018-06-14)
PROC: 5A1D70Z Performance of Urinary Filtration, Intermittent, Less than 6 Hours Per Day (ICD-10-PCS; 2018-06-14)
PROC: 0DTG0ZZ Resection of Left Large Intestine, Open Approach (ICD-10-PCS; principal; 2018-06-14 15:47)
PROC: 5A1D70Z Performance of Urinary Filtration, Intermittent, Less than 6 Hours Per Day (ICD-10-PCS; 2018-06-17)
PROC: 0D9670Z Drainage of Stomach with Drainage Device, Via Natural or Artificial Opening (ICD-10-PCS; 2018-06-18)
PROC: 5A1D70Z Performance of Urinary Filtration, Intermittent, Less than 6 Hours Per Day (ICD-10-PCS; 2018-06-19)
PROC: 5A1D70Z Performance of Urinary Filtration, Intermittent, Less than 6 Hours Per Day (ICD-10-PCS; 2018-06-21)
PROC: 0D9670Z Drainage of Stomach with Drainage Device, Via Natural or Artificial Opening (ICD-10-PCS; 2018-06-22)
PROC: BW211ZZ Computerized Tomography (CT Scan) of Abdomen and Pelvis using Low Osmolar Contrast (ICD-10-PCS; 2018-06-23)
PROC: 5A1D70Z Performance of Urinary Filtration, Intermittent, Less than 6 Hours Per Day (ICD-10-PCS; 2018-06-24)
PROC: 5A1D70Z Performance of Urinary Filtration, Intermittent, Less than 6 Hours Per Day (ICD-10-PCS; 2018-06-26)
PROC: 02HV33Z Insertion of Infusion Device into Superior Vena Cava, Percutaneous Approach (ICD-10-PCS; 2018-06-27)
PROC: 4A02X4A Measurement of Cardiac Electrical Activity, Guidance, External Approach (ICD-10-PCS; 2018-06-27)
PROC: B548ZZA Ultrasonography of Superior Vena Cava, Guidance (ICD-10-PCS; 2018-06-27)
PROC: 5A1D70Z Performance of Urinary Filtration, Intermittent, Less than 6 Hours Per Day (ICD-10-PCS; 2018-06-28)
PROC: 5A1D70Z Performance of Urinary Filtration, Intermittent, Less than 6 Hours Per Day (ICD-10-PCS; 2018-07-01)
PROC: BW211ZZ Computerized Tomography (CT Scan) of Abdomen and Pelvis using Low Osmolar Contrast (ICD-10-PCS; 2018-07-02)
PROC: 5A1D70Z Performance of Urinary Filtration, Intermittent, Less than 6 Hours Per Day (ICD-10-PCS; 2018-07-03)
PROC: 5A1D70Z Performance of Urinary Filtration, Intermittent, Less than 6 Hours Per Day (ICD-10-PCS; 2018-07-05)
PROC: 5A1D70Z Performance of Urinary Filtration, Intermittent, Less than 6 Hours Per Day (ICD-10-PCS; 2018-07-08)
DX: A41.9 Sepsis, unspecified organism (principal); E43 Unspecified severe protein-calorie malnutrition; N18.6 End stage renal disease; N17.9 Acute kidney failure, unspecified; K57.20 Diverticulitis of large intestine with perforation and abscess without bleeding; N39.0 Urinary tract infection, site not specified; E87.2 Acidosis; K56.7 Ileus, unspecified; E87.1 Hypo-osmolality and hyponatremia; K56.600 Partial intestinal obstruction, unspecified as to cause; I12.0 Hypertensive chronic kidney disease with stage 5 chronic kidney disease or end stage renal disease; Q61.3 Polycystic kidney, unspecified; D64.9 Anemia, unspecified; R01.1 Cardiac murmur, unspecified; E83.41 Hypermagnesemia; E83.39 Other disorders of phosphorus metabolism; K59.09 Other constipation; N83.201 Unspecified ovarian cyst, right side; E87.5 Hyperkalemia; E78.1 Pure hyperglyceridemia; R33.9 Retention of urine, unspecified; E87.6 Hypokalemia; R73.9 Hyperglycemia, unspecified; B95.7 Other staphylococcus as the cause of diseases classified elsewhere; G47.00 Insomnia, unspecified; Z99.2 Dependence on renal dialysis; Z90.49 Acquired absence of other specified parts of digestive tract; Z88.0 Allergy status to penicillin; Z88.6 Allergy status to analgesic agent; Z88.8 Allergy status to other drugs, medicaments and biological substances; Z82.71 Family history of polycystic kidney; Z68.22 Body mass index [BMI] 22.0-22.9, adult
CPT/HCPCS: 36415; 36558; 36569; 71045; 71046; 74018; 74176; 74177; 76775; 76937; 77001; 80048; 80053; 80061; 80069; 81001; 82565; 82570; 82607; 82728; 82948; 83036; 83605; 83615; 83735; 83880; 84100; 84134; 84145; 84156; 84300; 84443; 84478; 84484; 84540; 85025; 85027; 86704; 86705; 86706; 86709; 86803; 86885; 86900; 86901; 86920; 87040; 87070; 87077; 87088; 87186; 87340; 88307; 93306; 94640; 94760; 96361; 96374; 97110; 97116; 97162; 97530; 99152; 99153; 99285; A7000; A9270; C1750; C1758; C1894; C9399; G0257; G0378; J0360; J0692; J0696; J0780; J0885; J1100; J1170; J1644; J1815; J1956; J2001; J2060; J2150; J2250; J2270; J2370; J2405; J2543; J2765; J2795; J3010; J3370; J3490; J7030; J7060; J7120; J8597; P9016; P9045; Q0169; Q9963; Q9967

== ENCOUNTER 2018-11-04 08:38 | Day surgery (SDC) | payer MEDICARE, OTHER ==
[~2018-11-04] VITALS: Ht 167.6 cm; Wt 56.6 kg
[~2018-11-04 08:38] MED LIST: NO HOME MEDS
[2018-11-04 08:45] VITALS: BP 198/71
[2018-11-04] MEDS ORDERED: LISI40TA4 PO (08:50)
[2018-11-04] MEDS ORDERED: HYDR100T27 PO (08:51)
[2018-11-04] MEDS ORDERED: PANT-47 PO (08:52)
[2018-11-04] MEDS ORDERED: DOCU-148 PO (08:52)
[2018-11-04] MEDS ORDERED: FA/V1TAB PO (08:53)
[2018-11-04] MEDS ORDERED: SERT100T10 PO (08:54)
[2018-11-04] MEDS ORDERED: ASPI-611 PO (08:55)
[2018-11-04] MEDS ORDERED: fentaNYL/PF 50MCG/1 ML 2ML syringe ONE (09:25)
[2018-11-04] MEDS ORDERED: MIDAZolam 5mg/5ml vial ONE (09:25)
[2018-11-04 10:00] VITALS: BP 146/65
[2018-11-04 10:10] VITALS: BP 170/54
[2018-11-04 10:20] VITALS: BP 166/64
[2018-11-04 10:30] VITALS: BP 158/59
== END 2018-11-04 10:40 | disposition home or self-care (01) ==
LOC: GI LAB 08:38
PROVIDERS: ATTEND Internal Medicine Gastroenterology
DX: Z12.11 Encounter for screening for malignant neoplasm of colon (principal); D12.2 Benign neoplasm of ascending colon; K64.8 Other hemorrhoids
CPT/HCPCS: 45380; G0500; J2250; J3010; J7040; 88305; 99152; A4620

== ENCOUNTER 2018-11-21 18:35 | Inpatient (IN) | payer MEDICARE, OTHER ==
[~2018-11-21] VITALS: Ht 152.4 cm; Wt 56.6 kg
[~2018-11-21 18:35] MED LIST changes: +ASPI-611 PO; +DOCU-148 PO; +FA/V1TAB PO; +HYDR100T27 PO; +LISI40TA4 PO; -NO HOME MEDS; +PANT-47 PO; +SERT100T10 PO
--- NOTE | 2018-11-21 19:34 | NUR ---
Contacted [facility], patient received 12.5 of promethazine and a "small dose of captapril" they are faxing over addition information
--- NOTE | 2018-11-21 19:36 | NUR ---
Patient states that she had an allergic reaction to a blood pressure medication, hives/rash on face. Patient does not know what medication it was but said that she is no longer taking it
[2018-11-21 19:45] LABS: BASOPHILS % (AUTO) 0.9 % (0-1); EOSINOPHILS % (AUTO) 1.1 % (0-6); HEMATOCRIT 30.2 % (35.0-45.0); HEMOGLOBIN 10.3 g/dl (12.0-16.0); LYMPHOCYTES # (AUTO) 0.6 X10'3 (1.1-4.8); MEAN CORPUSCULAR HEMOGLOBIN 30.3 PG (27.0-31.0); MEAN CORPUSCULAR HGB CONC 34.2 g/dL (33.0-36.5); MEAN CORPUSCULAR VOLUME 88.7 FL (78-98); MEAN PLATELET VOLUME 8.6 FL (7.4-10.4); MONOCYTES # (AUTO) 0.3 X10'3 (0-0.9); MONOCYTES % (AUTO) 12.3 % (2-12); NEUTROPHILS # (AUTO) 1.3 X10'3 (1.8-7.7); NEUTROPHILS % (AUTO) 59.7 % (42-75); PLATELET COUNT 165 X10'3 (140-440); RED BLOOD COUNT 3.41 X10'6 (4.20-5.60); RED CELL DISTRIBUTION WIDTH 18.1 % (11.5-14.5); WHITE BLOOD COUNT 2.2 X10'3 (4.5-11.0)
[2018-11-21 19:51] LABS: ALANINE AMINOTRANSFERASE 17 U/L (12-78); ALBUMIN 3.9 G/DL (3.4-5.0); ALBUMIN/GLOBULIN RATIO 1.1 (1.1-1.5); ALKALINE PHOSPHATASE 64 IU/L (46-116); ANION GAP 16 (8-16); ASPARTATE AMINO TRANSFERASE 17 U/L (10-37); BILIRUBIN,TOTAL 0.7 MG/DL (0.1-1.0); BLOOD UREA NITROGEN 22 MG/DL (7-18); BUN/CREATININE RATIO 5.9 (6.6-38.0); CALCIUM 9.5 MG/DL (8.5-10.1); CHLORIDE 100 MMOL/L (99-107); GLUCOSE 136 MG/DL (70-104); POTASSIUM 3.2 MMOL/L (3.5-5.1); SODIUM 141 MMOL/L (135-145); TOTAL CARBON DIOXIDE 25.3 MMOL/L (24-32); TOTAL PROTEIN 7.3 G/DL (6.4-8.2); eGFR 12 ML/MIN
[2018-11-21] MEDS ORDERED: ondansetron/PF 4mg/2ml inj IV ONE (20:25)
[2018-11-21] MEDS ORDERED: morphine 4 MG/ML inj SYRINge IV ONE ×3 (20:25→22:45)
[2018-11-21 20:27] LABS: ANISOCYTOSIS 2+; PLATELET ESTIMATE NORMAL; TOTAL CELLS COUNTED 100
[2018-11-21 20:55] LABS: LIPASE 373 U/L (73-393)
--- NOTE | 2018-11-21 23:30 | NUR ---
PT. STATED THAT HER PAIN LEVEL HAS BEEN AT 7 AND CONSISTANT. PT. MEDICATED WITH 4MG MORPHINE..... PAIN DECREASED TO 5/10
[2018-11-21 23:36] LABS: COLOR,URINE YELLOW (Yellow); GLUCOSE, URINE 100 mg/dl (Neg); KETONES,URINE 15 mg/dl (Neg); LEUKOCYTE ESTERASE ,URINE NEGATIVE (Neg); NITRITES, URINE NEGATIVE (Neg); OCCULT BLOOD,URINE NEGATIVE (Neg); PH,URINE 8.5 (4.8-8.0); PROTEIN,URINE >=300 mg/dl (Neg); UROBILINOGEN,URINE 0.2 E.U/dL (0.2-1.0)
[2018-11-21 23:40] LABS: CLARITY,URINE SLIGHTLY CLOUDY (Clear); UA COLLECTION TYPE STRAIGHT CATH
[2018-11-21 23:46] LABS: BACTERIA,URINE FEW /HPF (Neg); RBC,URINE 0-2 /HPF (0-2); SQUAMOUS EPITHELIAL CELL,UR FEW /LPF (FEW)
[2018-11-22] MEDS ORDERED: morphine 2 MG/ML inj. syringe IV PRN ×2 (00:25)
[2018-11-22] MEDS ORDERED: acetaminophen 325mg tablet PO PRN (00:25)
[2018-11-22] MEDS ORDERED: acetaminophen 650mg rectal suppository RC PRN (00:25)
[2018-11-22] MEDS ORDERED: ondansetron/PF 4mg/2ml inj IV PRN (00:25)
[2018-11-22] MEDS: normal saline 1000ml 1,000 ML IV SCH ×2 (00:35→20:21)
[2018-11-22 01:18] VITALS: BP 201/76
[2018-11-22 01:22] VITALS: BP 184/78
[2018-11-22] MEDS ORDERED: LORazepam 2 mg/ml vial IV ONE (02:10)
[2018-11-22] MEDS: hydrALAZINE 20mg/ml inj. IV PRN (02:31)
[2018-11-22 04:45] VITALS: BP 119/54
--- NOTE | 2018-11-22 07:05 | NUR ---
Problems reprioritized. Patient report given, questions answered & plan of care reviewed with IRENA Mohan..
[2018-11-22 08:00] VITALS: BP 129/58
[2018-11-22 12:00] VITALS: BP 136/55
--- NOTE | 2018-11-22 14:09 | NUR ---
TRACE LARIOS PER REQUEST TO LET HER KNOW THAT PT. TOLERATED REGULAR DIET. PAGER ID: [phone] MESSAGE: Best [facility] [phone] Pt. ate all of regular lunch one hour ago and tolerated well. No NVD. Mag [id number] Addendum: 11/22/18 at 1411 by Mag Pettit RN WRONG PT. DISREGAURD
[2018-11-22 18:00] VITALS: BP 154/55
--- NOTE | 2018-11-22 18:30 | NUR ---
Patient in room PA 360. I have received report from Mag OSBORN and had the opportunity to ask questions and assume patient care.
--- NOTE | 2018-11-22 18:33 | NUR ---
PT. IN ROOM RESTING COMFORTABLY IN BED. NG TUBE TO LOW INTER. SUCTION AND WORKING PROPERLY. PT. REQUESTING POPSICLE. BI FAXING KITCHEN AT THIS MOMENT. Problems reprioritized. Patient report given, questions answered & plan of care reviewed with BI OSBORN.
--- NOTE | 2018-11-22 22:00 | NUR ---
NG was on low continuous suction and changed to intermittent suction per MD orders. will continue to monitor.
[2018-11-23] VITALS (8 sets, daily range): BP systolic 150–187; BP diastolic 60–85
--- NOTE | 2018-11-23 06:12 | NUR ---
Problems reprioritized. Patient report given, questions answered & plan of care reviewed with Mag OSBORN. IV intact, IVF infusing. NG patent and hooked to low intermittent suctions. pt resting, eyes closed.
[2018-11-23 06:54] LABS: EOSINOPHILS # (AUTO) 0.1 X10'3 (0-0.9); EOSINOPHILS % (AUTO) 4.3 % (0-6); LYMPHOCYTES # (AUTO) 1.1 X10'3 (1.1-4.8); LYMPHOCYTES % (AUTO) 33.3 % (21-51); MEAN CORPUSCULAR HEMOGLOBIN 30.5 PG (27.0-31.0); MEAN CORPUSCULAR HGB CONC 33.2 g/dL (33.0-36.5); MEAN CORPUSCULAR VOLUME 91.8 FL (78-98); MEAN PLATELET VOLUME 8.9 FL (7.4-10.4); MONOCYTES # (AUTO) 0.3 X10'3 (0-0.9); MONOCYTES % (AUTO) 9.8 % (2-12); NEUTROPHILS # (AUTO) 1.6 X10'3 (1.8-7.7); NEUTROPHILS % (AUTO) 51.6 % (42-75); PLATELET COUNT 130 X10'3 (140-440); RED BLOOD COUNT 2.94 X10'6 (4.20-5.60); RED CELL DISTRIBUTION WIDTH 18.7 % (11.5-14.5); WHITE BLOOD COUNT 3.2 X10'3 (4.5-11.0)
[2018-11-23 07:00] LABS: ALANINE AMINOTRANSFERASE 18 U/L (12-78); ALBUMIN 3.4 G/DL (3.4-5.0); ALBUMIN/GLOBULIN RATIO 1.1 (1.1-1.5); ALKALINE PHOSPHATASE 50 IU/L (46-116); ANION GAP 14 (8-16); ASPARTATE AMINO TRANSFERASE 19 U/L (10-37); BILIRUBIN,TOTAL 0.6 MG/DL (0.1-1.0); BLOOD UREA NITROGEN 46 MG/DL (7-18); BUN/CREATININE RATIO 6.4 (6.6-38.0); CALCIUM 8.7 MG/DL (8.5-10.1); CHLORIDE 104 MMOL/L (99-107); CREATININE 7.23 MG/DL (0.40-0.90); GLUCOSE 51 MG/DL (70-104); MAGNESIUM 2.3 MG/DL (1.5-2.4); PHOSPHORUS 5.8 MG/DL (2.3-4.5); POTASSIUM 3.7 MMOL/L (3.5-5.1); SODIUM 147 MMOL/L (135-145); TOTAL CARBON DIOXIDE 28.8 MMOL/L (24-32); TOTAL PROTEIN 6.4 G/DL (6.4-8.2); eGFR 6 ML/MIN
[2018-11-23 07:40] LABS: ANISOCYTOSIS 2+; LARGE PLATELETS FEW; PLATELET ESTIMATE DECREASED
[2018-11-23 07:41] LABS: POIKILOCYTOSIS FEW; STOMATOCYTES 2+
[2018-11-23] MEDS ORDERED: epoetin 20,000 units/ml inj IV ONE (08:00)
[2018-11-23] MEDS ORDERED: heparin 1,000unit/ml 10ml vial 10 ML IV ONE (08:00)
[2018-11-23] MEDS ORDERED: albumin (human) 25% 100ml IV 100 ML IV PRN (08:00)
[2018-11-23] MEDS ORDERED: heparin 1,000 units/ml 10ml inj IV ONE (08:00)
[2018-11-23] MEDS ORDERED: heparin 1,000 units/ml 10ml inj HE ONE ×2 (13:25)
[2018-11-23] MEDS ORDERED: [UNRECOGNIZED DRUG - MIXTURE] PO SCH (14:50)
--- NOTE | 2018-11-23 15:28 | NUR ---
No nausea or vomiting after eating entire clear liquid lunch meal. Will cont. to monitor on my shift.
[2018-11-23] MEDS: hydrALAZINE 20mg/ml inj. IV PRN (15:36)
[2018-11-23] MEDS: docusate sod 100mg capsule PO SCH (15:37)
[2018-11-23] MEDS ORDERED: hyDRALAzine 10mg tablet PO SCH (16:30)
[2018-11-23] MEDS: hyDRALAzine 10mg tablet PO SCH ×2 (16:40→20:59)
--- NOTE | 2018-11-23 17:30 | NUR ---
PT. SBP OVER 180 AFTER DIALYSIS. ADMINISTERED HYDRALAZINE IV 10MG PRN PER ORDER. REASSESSED BP. SBP 186. CALLED [facility]IJ[facility] DAVENPORT. NEW ORDER TO RESTART HYDRALAZINE PO 100MG TID WITH START DATE STAT. GAVE MEDICATION PER ORDER. REASSESSED BP. SEE VITALS. PT. ASYMPTOMATIC.
--- NOTE | 2018-11-23 18:45 | NUR ---
NG d/c by dayshift RN during shift change. pt tolerated well. pt reports passing gas, no nausea or vomiting. pt does c/o of headache. Patient in room PA 360. I have received report from Mag OSBORN and had the opportunity to ask questions and assume patient care.
[2018-11-23] MEDS: pantoprazole 40mg Tablet.DR PO SCH (19:17)
--- NOTE | 2018-11-23 20:12 | NUR ---
PT. IN ROOM, COMFORTABLE, ALERT AND AWAKE WATCHING TV. RECENTLY AMBULATED, NO NV. HAS NOT HAD A BM YET. NG REMOVED PER ORDER. PT. TOLERATED WELL. Problems reprioritized. Patient report given, questions answered & plan of care reviewed with BI OSBORN.
[2018-11-24] VITALS: BP 160/60
[2018-11-24 06:14] LABS: BASOPHILS % (AUTO) 0.9 % (0-1); EOSINOPHILS # (AUTO) 0.2 X10'3 (0-0.9); EOSINOPHILS % (AUTO) 4.2 % (0-6); HEMOGLOBIN 10.2 g/dl (12.0-16.0); LYMPHOCYTES % (AUTO) 26.6 % (21-51); MEAN CORPUSCULAR HGB CONC 33.1 g/dL (33.0-36.5); MEAN CORPUSCULAR VOLUME 90.7 FL (78-98); MEAN PLATELET VOLUME 8.8 FL (7.4-10.4); MONOCYTES # (AUTO) 0.4 X10'3 (0-0.9); MONOCYTES % (AUTO) 10.2 % (2-12); NEUTROPHILS # (AUTO) 2.3 X10'3 (1.8-7.7); NEUTROPHILS % (AUTO) 58.1 % (42-75); PLATELET COUNT 161 X10'3 (140-440); RED BLOOD COUNT 3.42 X10'6 (4.20-5.60); RED CELL DISTRIBUTION WIDTH 18.6 % (11.5-14.5); WHITE BLOOD COUNT 3.9 X10'3 (4.5-11.0)
--- NOTE | 2018-11-24 06:21 | NUR ---
Problems reprioritized. Patient report given, questions answered & plan of care reviewed with Rebecca OSBORN.
[2018-11-24 06:23] LABS: ALANINE AMINOTRANSFERASE 19 U/L (12-78); ALBUMIN 3.5 G/DL (3.4-5.0); ALBUMIN/GLOBULIN RATIO 1.1 (1.1-1.5); ALKALINE PHOSPHATASE 54 IU/L (46-116); ANION GAP 13 (8-16); ASPARTATE AMINO TRANSFERASE 21 U/L (10-37); BILIRUBIN,TOTAL 0.6 MG/DL (0.1-1.0); BLOOD UREA NITROGEN 21 MG/DL (7-18); BUN/CREATININE RATIO 4.8 (6.6-38.0); CHLORIDE 103 MMOL/L (99-107); CREATININE 4.36 MG/DL (0.40-0.90); GLUCOSE 69 MG/DL (70-104); MAGNESIUM 2.1 MG/DL (1.5-2.4); PHOSPHORUS 4.1 MG/DL (2.3-4.5); POTASSIUM 4.3 MMOL/L (3.5-5.1); SODIUM 142 MMOL/L (135-145); TOTAL CARBON DIOXIDE 25.6 MMOL/L (24-32); TOTAL PROTEIN 6.8 G/DL (6.4-8.2); eGFR 10 ML/MIN
[2018-11-24 08:00] VITALS: BP 135/55
[2018-11-24] MEDS ORDERED: folic acid/vitamin B complex w/vitamin C 0.8mg tablet PO SCH (08:00)
[2018-11-24] MEDS ORDERED: non-formulary drug (Lisinopril* 1 TAB) PO SCH (08:00)
[2018-11-24] MEDS ORDERED: sertraline 50mg tablet PO SCH (08:00)
[2018-11-24] MEDS ORDERED: lisinopril 20mg tablet PO SCH (08:00)
[2018-11-24] MEDS ORDERED: non-formulary drug (Sertraline HCl 1 TAB) PO SCH (08:00)
[2018-11-24] MEDS: docusate sod 100mg capsule PO SCH (08:45)
[2018-11-24] MEDS: pantoprazole 40mg Tablet.DR PO SCH (08:45)
[2018-11-24] MEDS: hyDRALAzine 10mg tablet PO SCH ×2 (08:47→13:17)
[2018-11-24 09:03] LABS: LARGE PLATELETS FEW; PLATELET ESTIMATE NORMAL
[2018-11-24 09:04] LABS: ANISOCYTOSIS 2+; POLYCHROMASIA 1+
[2018-11-24 11:00] VITALS: BP 144/65
--- NOTE | 2018-11-24 14:17 | NUR ---
pt states states that she understands all DC instructions. Wheels to husbands car safely.
== END 2018-11-24 14:04 | disposition home or self-care (01) | DRG 388 ==
LOC: ER 18:36 → EDBEDREQ 11-22 00:33 → SUR 3N 11-22 01:09
PROVIDERS: ADMIT Internal Medicine Critical Care Medicine; ATTEND Internal Medicine Critical Care Medicine
PROC: 0D9670Z Drainage of Stomach with Drainage Device, Via Natural or Artificial Opening (ICD-10-PCS; 2018-11-22)
PROC: 5A1D70Z Performance of Urinary Filtration, Intermittent, Less than 6 Hours Per Day (ICD-10-PCS; principal; 2018-11-23)
DX: K56.600 Partial intestinal obstruction, unspecified as to cause (principal); N18.6 End stage renal disease; Z99.2 Dependence on renal dialysis; Z88.8 Allergy status to other drugs, medicaments and biological substances; Z88.0 Allergy status to penicillin; Z90.49 Acquired absence of other specified parts of digestive tract
CPT/HCPCS: 36415; 74176; 80053; 81001; 83690; 83735; 84100; 85025; 85610; 87081; 87088; 93005; 96374; 96375; 96376; 99285; G0257; G0378; J0360; J1644; J2060; J2270; J2405; J7030; Q4081

== ENCOUNTER 2019-02-07 16:51 | Emergency (ER) | payer MEDICARE, OTHER ==
[~2019-02-07] VITALS: Ht 167.6 cm; Wt 56.6 kg
[~2019-02-07 16:51] MED LIST changes: -ASPI-611 PO
[2019-02-07 18:19] LABS: BASOPHILS % (AUTO) 0.6 % (0-1); EOSINOPHILS # (AUTO) 0.2 X10'3 (0-0.9); EOSINOPHILS % (AUTO) 4.6 % (0-6); HEMATOCRIT 33.1 % (35.0-45.0); LYMPHOCYTES # (AUTO) 0.6 X10'3 (1.1-4.8); LYMPHOCYTES % (AUTO) 15.9 % (21-51); MEAN CORPUSCULAR HEMOGLOBIN 32.1 PG (27.0-31.0); MEAN CORPUSCULAR HGB CONC 33.2 g/dL (33.0-36.5); MEAN CORPUSCULAR VOLUME 96.5 FL (78-98); MEAN PLATELET VOLUME 8.1 FL (7.4-10.4); MONOCYTES # (AUTO) 0.3 X10'3 (0-0.9); MONOCYTES % (AUTO) 8.8 % (2-12); NEUTROPHILS # (AUTO) 2.6 X10'3 (1.8-7.7); NEUTROPHILS % (AUTO) 70.1 % (42-75); PLATELET COUNT 106 X10'3 (140-440); RED BLOOD COUNT 3.42 X10'6 (4.20-5.60); RED CELL DISTRIBUTION WIDTH 15.9 % (11.5-14.5); WHITE BLOOD COUNT 3.8 X10'3 (4.5-11.0)
[2019-02-07 18:42] LABS: ALANINE AMINOTRANSFERASE 14 U/L (12-78); ALBUMIN 3.2 G/DL (3.4-5.0); ALKALINE PHOSPHATASE 59 IU/L (46-116); ANION GAP 14 (8-16); ASPARTATE AMINO TRANSFERASE 17 U/L (10-37); BILIRUBIN,TOTAL 0.5 MG/DL (0.1-1.0); BLOOD UREA NITROGEN 49 MG/DL (7-18); CALCIUM 8.6 MG/DL (8.5-10.1); CHLORIDE 107 MMOL/L (99-107); CREATININE 6.97 MG/DL (0.40-0.90); GLUCOSE 98 MG/DL (70-104); POTASSIUM 3.6 MMOL/L (3.5-5.1); SODIUM 146 MMOL/L (135-145); TOTAL CARBON DIOXIDE 25.4 MMOL/L (24-32); TOTAL PROTEIN 6.3 G/DL (6.4-8.2); eGFR 6 ML/MIN
[2019-02-07 18:44] LABS: MAGNESIUM 2.2 MG/DL (1.5-2.4)
[2019-02-07 19:09] VITALS: BP 184/74
== END 2019-02-07 19:12 | disposition home or self-care (01) ==
LOC: ER 16:52
DX: T82.838A Hemorrhage due to vascular prosthetic devices, implants and grafts, initial encounter (principal); N18.9 Chronic kidney disease, unspecified; Z90.49 Acquired absence of other specified parts of digestive tract; Z88.8 Allergy status to other drugs, medicaments and biological substances; Z88.0 Allergy status to penicillin; Z88.6 Allergy status to analgesic agent; Z79.899 Other long term (current) drug therapy; Y92.89 Other specified places as the place of occurrence of the external cause
CPT/HCPCS: 36415; 71045; 80053; 83735; 83880; 84484; 85025; 93005; 99284

== ENCOUNTER 2019-04-05 13:46 | Emergency (ER) | payer MEDICARE, OTHER ==
[~2019-04-05] VITALS: Ht 167.6 cm; Wt 54.0 kg
[2019-04-05 14:48] LABS: BASOPHILS % (AUTO) 0.7 % (0-1); EOSINOPHILS # (AUTO) 0.3 X10'3 (0-0.9); EOSINOPHILS % (AUTO) 6.6 % (0-6); HEMATOCRIT 37.9 % (35.0-45.0); HEMOGLOBIN 12.5 g/dl (12.0-16.0); LYMPHOCYTES # (AUTO) 0.5 X10'3 (1.1-4.8); LYMPHOCYTES % (AUTO) 11.3 % (21-51); MEAN CORPUSCULAR HEMOGLOBIN 32.6 PG (27.0-31.0); MEAN CORPUSCULAR VOLUME 98.7 FL (78-98); MEAN PLATELET VOLUME 8.3 FL (7.4-10.4); MONOCYTES # (AUTO) 0.3 X10'3 (0-0.9); MONOCYTES % (AUTO) 7.6 % (2-12); NEUTROPHILS # (AUTO) 3.1 X10'3 (1.8-7.7); NEUTROPHILS % (AUTO) 73.8 % (42-75); PLATELET COUNT 110 X10'3 (140-440); RED BLOOD COUNT 3.83 X10'6 (4.20-5.60); WHITE BLOOD COUNT 4.2 X10'3 (4.5-11.0)
[2019-04-05 14:56] LABS: ALANINE AMINOTRANSFERASE 17 U/L (12-78); ALBUMIN 3.9 G/DL (3.4-5.0); ALBUMIN/GLOBULIN RATIO 1.2 (1.1-1.5); ALKALINE PHOSPHATASE 71 IU/L (46-116); ANION GAP 11 (8-16); ASPARTATE AMINO TRANSFERASE 16 U/L (10-37); BILIRUBIN,TOTAL 0.6 MG/DL (0.1-1.0); BLOOD UREA NITROGEN 29 MG/DL (7-18); BUN/CREATININE RATIO 5.1 (6.6-38.0); CHLORIDE 106 MMOL/L (99-107); CREATININE 5.72 MG/DL (0.40-0.90); GLUCOSE 115 MG/DL (70-104); LIPASE 255 U/L (73-393); POTASSIUM 4.5 MMOL/L (3.5-5.1); SODIUM 146 MMOL/L (135-145); TOTAL CARBON DIOXIDE 28.6 MMOL/L (24-32); TOTAL PROTEIN 7.1 G/DL (6.4-8.2); eGFR 7 ML/MIN
[2019-04-05] MEDS ORDERED: pantoprazole 40mg Tablet.DR PO ONE (15:10)
[2019-04-05] MEDS ORDERED: LIDOcaine Viscous 15ml cup MM ONE (15:10)
[2019-04-05] MEDS ORDERED: ondansetron 4mg rapidly disintigrating tab PO STA (15:10)
[2019-04-05] MEDS ORDERED: mag hydrox/Alum hydrox/simeth 30ml oral suspension PO ONE (15:10)
[2019-04-05 15:32] LABS: CLARITY,URINE CLEAR (Clear); COLOR,URINE YELLOW (Yellow); GLUCOSE, URINE NEGATIVE (Neg); KETONES,URINE NEGATIVE (Neg); LEUKOCYTE ESTERASE ,URINE NEGATIVE (Neg); NITRITES, URINE NEGATIVE (Neg); OCCULT BLOOD,URINE NEGATIVE (Neg); PH,URINE 8.5 (4.8-8.0); PROTEIN,URINE >=300 mg/dl (Neg); UROBILINOGEN,URINE 0.2 E.U/dL (0.2-1.0)
[2019-04-05 15:33] LABS: UA COLLECTION TYPE CLN CATCH MIDSTREAM
--- NOTE | 2019-04-05 15:35 | NUR ---
Upon further history, per the pt has been suffering from nausea daily for "months". adds that the pt vomits "every time she forces herself to eat", and has lost a significant amount of weight as a result.
[2019-04-05 15:42] LABS: BACTERIA,URINE FEW /HPF (Neg); MUCUS STRANDS FEW /LPF (Neg); RBC,URINE 0-2 /HPF (0-2); SQUAMOUS EPITHELIAL CELL,UR MANY /LPF (FEW); WBC,URINE 0-4 /HPF (0-4)
[2019-04-05 15:51] VITALS: BP 176/68
== END 2019-04-05 15:53 | disposition home or self-care (01) ==
LOC: ER 13:47
DX: K29.00 Acute gastritis without bleeding (principal); R11.10 Vomiting, unspecified; R10.13 Epigastric pain; N18.9 Chronic kidney disease, unspecified; Z90.49 Acquired absence of other specified parts of digestive tract; Z88.8 Allergy status to other drugs, medicaments and biological substances; Z88.0 Allergy status to penicillin; Z88.6 Allergy status to analgesic agent; Z79.899 Other long term (current) drug therapy
CPT/HCPCS: 36415; 74018; 80053; 81001; 83690; 85025; 99284

== ENCOUNTER 2019-04-10 16:36 | Emergency (ER) | payer MEDICARE, OTHER ==
[~2019-04-10] VITALS: Ht 167.6 cm; Wt 52.0 kg
[2019-04-10 19:02] LABS: BASOPHILS % (AUTO) 1.3 % (0-1); EOSINOPHILS # (AUTO) 0.1 X10'3 (0-0.9); EOSINOPHILS % (AUTO) 5.8 % (0-6); HEMATOCRIT 35.1 % (35.0-45.0); HEMOGLOBIN 11.5 g/dl (12.0-16.0); LYMPHOCYTES # (AUTO) 0.7 X10'3 (1.1-4.8); MEAN CORPUSCULAR HEMOGLOBIN 32.1 PG (27.0-31.0); MEAN CORPUSCULAR HGB CONC 32.9 g/dL (33.0-36.5); MEAN CORPUSCULAR VOLUME 97.4 FL (78-98); MEAN PLATELET VOLUME 9.1 FL (7.4-10.4); MONOCYTES # (AUTO) 0.2 X10'3 (0-0.9); MONOCYTES % (AUTO) 11.2 % (2-12); NEUTROPHILS # (AUTO) 1.1 X10'3 (1.8-7.7); NEUTROPHILS % (AUTO) 49.7 % (42-75); PLATELET COUNT 91 X10'3 (140-440); RED CELL DISTRIBUTION WIDTH 16.9 % (11.5-14.5); WHITE BLOOD COUNT 2.2 X10'3 (4.5-11.0)
[2019-04-10 19:16] LABS: ALANINE AMINOTRANSFERASE 14 U/L (12-78); ALBUMIN 3.5 G/DL (3.4-5.0); ALBUMIN/GLOBULIN RATIO 1.2 (1.1-1.5); ALKALINE PHOSPHATASE 62 IU/L (46-116); ANION GAP 13 (8-16); ASPARTATE AMINO TRANSFERASE 16 U/L (10-37); BILIRUBIN,TOTAL 0.5 MG/DL (0.1-1.0); BLOOD UREA NITROGEN 37 MG/DL (7-18); BUN/CREATININE RATIO 5.6 (6.6-38.0); CALCIUM 8.9 MG/DL (8.5-10.1); CHLORIDE 106 MMOL/L (99-107); CREATININE 6.66 MG/DL (0.40-0.90); ETHANOL < 0.010 GM/DL (0.0-0.010); GLUCOSE 105 MG/DL (70-104); POTASSIUM 5.1 MMOL/L (3.5-5.1); SODIUM 145 MMOL/L (135-145); TOTAL CARBON DIOXIDE 26.3 MMOL/L (24-32); TOTAL PROTEIN 6.5 G/DL (6.4-8.2); eGFR 6 ML/MIN
[2019-04-10 19:26] LABS: TOTAL CELLS COUNTED 100
[2019-04-10 19:27] LABS: ANISOCYTOSIS 1+; PLATELET ESTIMATE DECREASED
[2019-04-10 19:40] LABS: CLARITY,URINE CLEAR (Clear); COLOR,URINE YELLOW (Yellow); GLUCOSE, URINE NEGATIVE (Neg); KETONES,URINE NEGATIVE (Neg); LEUKOCYTE ESTERASE ,URINE NEGATIVE (Neg); NITRITES, URINE NEGATIVE (Neg); OCCULT BLOOD,URINE NEGATIVE (Neg); PH,URINE 8.5 (4.8-8.0); PROTEIN,URINE >=300 mg/dl (Neg); UROBILINOGEN,URINE 0.2 E.U/dL (0.2-1.0)
[2019-04-10 19:45] LABS: UA COLLECTION TYPE CLN CATCH MIDSTREAM
[2019-04-10 19:46] LABS: BACTERIA,URINE FEW /HPF (Neg); RBC,URINE NONE SEEN /HPF (0-2); SQUAMOUS EPITHELIAL CELL,UR FEW /LPF (FEW); WBC,URINE NONE SEEN /HPF (0-4)
[2019-04-10 19:54] LABS: URINE AMPHETAMINE SCREEN NEGATIVE (Neg); URINE BARBITUATE SCREEN NEGATIVE (Neg); URINE BENZODIAZEPINES SCREEN NEGATIVE (Neg); URINE CANNABINOID SCREEN POSITIVE (Neg); URINE COCAINE SCREEN NEGATIVE (Neg); URINE METHADONE SCREEN NEGATIVE (Neg); URINE OPIATE SCREEN NEGATIVE (Neg); URINE PHENCYCLIDINE SCREEN NEGATIVE (Neg)
[2019-04-10 20:30] VITALS: BP 167/67
== END 2019-04-10 20:32 | disposition home or self-care (01) ==
LOC: ER 16:37
DX: R42 Dizziness and giddiness (principal); N18.6 End stage renal disease; Z99.2 Dependence on renal dialysis; Z90.49 Acquired absence of other specified parts of digestive tract; Z88.0 Allergy status to penicillin; Z88.6 Allergy status to analgesic agent; Z88.8 Allergy status to other drugs, medicaments and biological substances; Z79.899 Other long term (current) drug therapy
CPT/HCPCS: 36415; 80053; 80305; 80320; 81001; 82140; 85025; 93005; 99284

== ENCOUNTER 2019-07-24 02:11 | Emergency (ER) | payer MEDICARE, OTHER ==
[~2019-07-24] VITALS: Ht 167.6 cm; Wt 52.3 kg
[2019-07-24] MEDS ORDERED: ondansetron/PF 4mg/2ml inj IV ONE (02:50)
[2019-07-24] MEDS ORDERED: morphine 4 MG/ML inj SYRINge IV ONE (02:50)
[2019-07-24 02:53] LABS: CLARITY,URINE CLEAR (Clear); COLOR,URINE YELLOW (Yellow); GLUCOSE, URINE NEGATIVE (Neg); KETONES,URINE NEGATIVE (Neg); LEUKOCYTE ESTERASE ,URINE TRACE (Neg); NITRITES, URINE NEGATIVE (Neg); OCCULT BLOOD,URINE NEGATIVE (Neg); PH,URINE 8.5 (4.8-8.0); PROTEIN,URINE 100 mg/dl (Neg); UROBILINOGEN,URINE 0.2 E.U/dL (0.2-1.0)
[2019-07-24 02:57] LABS: EOSINOPHILS # (AUTO) 0.2 X10'3 (0-0.9); HEMATOCRIT 31.3 % (35.0-45.0); HEMOGLOBIN 10.1 g/dl (12.0-16.0); LYMPHOCYTES # (AUTO) 0.6 X10'3 (1.1-4.8); LYMPHOCYTES % (AUTO) 16.2 % (21-51); MEAN CORPUSCULAR HEMOGLOBIN 33.1 PG (27.0-31.0); MEAN CORPUSCULAR HGB CONC 32.2 g/dL (33.0-36.5); MEAN CORPUSCULAR VOLUME 102.7 FL (78-98); MEAN PLATELET VOLUME 9.3 FL (7.4-10.4); MONOCYTES # (AUTO) 0.3 X10'3 (0-0.9); MONOCYTES % (AUTO) 9.4 % (2-12); NEUTROPHILS # (AUTO) 2.4 X10'3 (1.8-7.7); NEUTROPHILS % (AUTO) 67.4 % (42-75); PLATELET COUNT 95 X10'3 (140-440); RED BLOOD COUNT 3.05 X10'6 (4.20-5.60); RED CELL DISTRIBUTION WIDTH 16.8 % (11.5-14.5); WHITE BLOOD COUNT 3.6 X10'3 (4.5-11.0)
[2019-07-24 03:05] LABS: UA COLLECTION TYPE CLN CATCH MIDSTREAM
[2019-07-24 03:07] LABS: BACTERIA,URINE FEW /HPF (Neg); RBC,URINE 0-2 /HPF (0-2); SQUAMOUS EPITHELIAL CELL,UR MODERATE /LPF (FEW); WBC,URINE 0-4 /HPF (0-4)
[2019-07-24 03:08] LABS: ALANINE AMINOTRANSFERASE 15 U/L (12-78); ALBUMIN 3.4 G/DL (3.4-5.0); ALBUMIN/GLOBULIN RATIO 1.3 (1.1-1.5); ALKALINE PHOSPHATASE 80 IU/L (46-116); ANION GAP 4 (8-16); ASPARTATE AMINO TRANSFERASE 16 U/L (10-37); BILIRUBIN,TOTAL 0.6 MG/DL (0.1-1.0); BLOOD UREA NITROGEN 30 MG/DL (7-18); BUN/CREATININE RATIO 5.6 (6.6-38.0); CALCIUM 8.3 MG/DL (8.5-10.1); CHLORIDE 109 MMOL/L (99-107); CREATININE 5.35 MG/DL (0.40-0.90); GLUCOSE 118 MG/DL (70-104); LIPASE 245 U/L (73-393); POTASSIUM 4.9 MMOL/L (3.5-5.1); SODIUM 144 MMOL/L (135-145); TOTAL CARBON DIOXIDE 31.4 MMOL/L (24-32); eGFR 8 ML/MIN
[2019-07-24] MEDS: morphine 10mg/ml inj. IV PRN ×2 (03:52→04:12)
--- NOTE | 2019-07-24 04:20 | NUR ---
CONTACTED TO PICKUP PT
--- NOTE | 2019-07-24 04:48 | NUR ---
RN WAS GETTING PT UP AND INTO WHEELCHAIR SHE STARTED DRY HEAVING; NO ACTUAL VOMIT CAME UP. ED MD CARDENAS AWARE AND WANTS TO MEDICATE FOR NAUSEA PRIOR TO SENDING PT HOME.
[2019-07-24] MEDS ORDERED: proCHLORperazine 10 MG/2 ml inj IV ONE (04:50)
--- NOTE | 2019-07-24 04:51 | NUR ---
SPOKE WITH ED MD ANGELA OSBORN PULLED IV AND ASKED FOR COMPAZINE IV TO BE CHANGED TO IM. ED MD AGREED & GAVE VERBAL FOR COMPAZINE IM
[2019-07-24] MEDS ORDERED: proCHLORperazine 10 MG/2 ml inj IM ONE (04:55)
[2019-07-24] MEDS ORDERED: ondansetron 4mg rapidly disintigrating tab PO ONE (04:55)
[2019-07-24] MEDS ORDERED: diphenhydrAMINE 50 mg/ml inj IM ONE (04:55)
--- NOTE | 2019-07-24 04:57 | NUR ---
UPDATED ED MD CARDENAS THAT PT REPORTED THAT SHE HAS ALLERGIC REACTIONS TO COMPAZINE AND CANNOT TAKE THIS. MD WILL CHANGE ORDER
--- NOTE | 2019-07-24 05:10 | NUR ---
PT CONTINUES TO DRY HEAVE. WILL GIVE MEGA AND KATHY MORE TIME TO WORK AND KEEP ED MD CARDENAS UPDATED.
--- NOTE | 2019-07-24 05:19 | NUR ---
PT REPORTS SHE IS FEELING BETTER ADN THE NAUSEA IS GONE. WILL MONITOR PT FOR 10 MORE MIN AND UPDATE ED MD CARDENAS.
--- NOTE | 2019-07-24 05:33 | NUR ---
PT O2 DIPPING TO LOW 80S. OXYGEN AT 2.5L; INCREASED TO 94%
--- NOTE | 2019-07-24 05:35 | NUR ---
PT CONTINUES TO HAVE NAUSEA. ED MD CARDENAS DOES NOT FEEL COMFORTABLE SENDING HER HOME AT THIS TIME. PT WILL STAY TO BE MONIRTORED. A NEW IV LINE WILL BE PLACED.
[2019-07-24] MEDS ORDERED: normal saline 1000ml 1,000 ML IV ONE (05:50)
[2019-07-24] MEDS ORDERED: ONDA4TAB6 PO (07:16)
[2019-07-24 07:20] VITALS: BP 164/68
== END 2019-07-24 07:22 | disposition home or self-care (01) ==
LOC: ER 02:12
DX: I50.9 Heart failure, unspecified (principal); N18.9 Chronic kidney disease, unspecified; Z90.49 Acquired absence of other specified parts of digestive tract; Z88.8 Allergy status to other drugs, medicaments and biological substances; Z88.6 Allergy status to analgesic agent; Z88.0 Allergy status to penicillin; Z79.899 Other long term (current) drug therapy
CPT/HCPCS: 36415; 80053; 81001; 83690; 85025; 87077; 87088; 87186; 96372; 96374; 96375; 96376; 99285; J1200; J2270; J2405; J7030; 99284